=== PATIENT | female | born 1945 | race Caucasian/White ===

== ENCOUNTER 2017-12-27 08:34 | Inpatient (IN) | payer MEDICARE, SELFPAY ==
[2017-12-20 13:41] VITALS: BP 132/57; PULSE 61; RESP 16; TEMP 36.4; O2SAT 96; BMI 32.7
[2017-12-20 14:12] LABS: Hematocrit 40.3 % (37-47); Hemoglobin 13.2 g/dl (12.0-15.0); Mean Corp Hgb Conc 32.8 g/gl (32-36); Mean Corpuscular Hgb 31.2 pg (27.0-32.0); Mean Corpuscular Volume 95.3 fL (81-99); Mean Platelet Vol. 9.4 fl (6.2-12.0); Platelet Count 192 K/mm3 (150-450); RBC Distribution Width SD 48.3 fl (35.1-43.9); Red Blood Count 4.23 M/mm3 (4.2-5.4); Scan Indicated on CBC? Y/N NO; White Blood Count 9.5 K/mm3 (4.4-11.0)
[2017-12-20 14:42] LABS: Hemoglobin A1c 6.3 % (4.2-6.3)
[2017-12-20 14:48] LABS: AST(SGOT) 15 U/L (15-37); Alanine Aminotransfer ALT/SGPT 23 U/L (12-78); Albumin, Serum 3.6 g/dL (3.4-5.0); Alkaline Phosphatase 74 U/L (45-117); Bilirubin, Direct 0.16 mg/dL (0.00-0.30); Globulin 3.7 g/dL (2.2-4.2); Protein, Total 7.3 g/dL (6.4-8.2); Thyroid Stim Hormone (TSH) 0.06 uIU/mL (0.358-3.74)
[2017-12-27] VITALS (26 sets, daily range): BP systolic 91–148; BP diastolic 45–100; PULSE 56–92; RESP 12–27; TEMP 36.4–37.2; O2SAT 56–100; BMI 32.7; BMI 33.8
--- NOTE | 2017-12-27 | IMM_PTH ---
PATIENT: JONATHAN QUINTANILLA LOC: PCU U#:[id number] AGE/SX: 72/F ROOM: [facility] RE12/27/[address]: Dr. Bipin Murray MD : 1945 BED: 1 DIS: 12/29/2017 SPEC #: [id number] RECD: 12/30/17 13:29 STATUS: KARLEY REShey #: [id number] FRANCK: 12/27/17 00:[address]: Bipin Murray DEPT: IMMUNOHISTOCHEMISTRY RECD BY: Geno Caicedo ENTERED: 12/30/17 13:32 SP TYPE: IMMUNO OTHR DR: MD Dr. Raudel Menendez MD Tissues: Urinary bladder, NOS Procedures: CK20 (add) P53 (add) CD44 (add) CK7 (initial) PHYSICIAN & INSTITUTION [place] [address] SPECIMEN INFORMATION: Tissue Source: Bladder tumor Clinical Info: [id number] Specimen Number: [id number] CPT code: 27136, 58740 x3 METHODOLOGY: Deparaffinized sections of prefer/formalin-fixed tissue or PAP/DQ stained slides are incubated with monoclonal/polyclonal antibodies/oligonucleotide probes. Localization is made via biotin free immunoperoxidase method. Appropriate controls are performed and reacted as expected. Results on target cell population are indicated in the following table: RESULTS: ANTIBODY / CLONE RESULT CK7 (OV-TL12/30) positive CK20 (KS20.8) positive P53 (DO-7) positive, dim anti-CD44 (SP37) positive These tests were developed and their performance characteristics determined by [facility]. They may not have been cleared or approved by the U.S. Food and Drug Administration. The FDA has determined that such clearance or approval is not necessary. INTERPRETATION: Bladder tumor: Consistent with urothelial carcinoma, endophytic type. AM:deny 12/31/17 Case has been reviewed in consultation with Dr. Lopes who concurs with the above diagnosis. IDC:[email or web address]
[2017-12-27 06:51] LABS: Bedside Glucose 166 mg/dL (70-110)
[2017-12-27] MEDS: Cefazolin 2 GM in 0.9% Normal Saline 100 ML IV (07:22)
--- NOTE | 2017-12-27 07:26 | PCM.DC.URO ---
Discharge Diet: Light diet - advance as tolerated Discharge Activity: Return to Normal Activity Call your doctor if your incision/area has: Continuous Slow Oozing, Sudden Increased Bleeding, Increased Pain/ Swelling, Increased Redness, Foul Smelling Discharge, Swelling at the incision site Instructions: Treating Bladder Cancer: TUR (Transurethral Resection) Allergies/Adverse Reactions: Allergies No Known Allergies Allergy (Verified 10/30/17 13:11) Medications to take at Discharge Ascorbic Acid [Vitamin C] 1,000 mg PO BID 10/30/17 Biotin 5,000 mcg PO QHS 10/30/17 Chromium Picolinate 1,000 mcg PO BID 10/30/17 Cinnamon Bark [Cinnamon] 1,000 mg PO BID 10/30/17 Copper Gluconate [Copper] 2 mg PO DAILY 10/30/17 Cyanocobalamin (Vitamin B-12) [Vitamin B-12] 500 mcg PO BID 10/30/17 Folic Acid 1 mg PO DAILY@0800 10/30/17 Gabapentin [Neurontin] 300 mg PO TID 10/30/17 Gluc/Elmo-MSM#1/C/Rahul/Alex/Bor [Osteo Bi-Flex Caplet] 2 each PO DAILY 10/30/17 Kelp 600 mcg PO BID 10/30/17 Krill Oil 1,000 mg PO DAILY 10/30/17 Levothyroxine [Synthroid] 175 mcg PO DAILY 10/30/17 Lovastatin [Mevacor] 20 mg PO DAILY 10/30/17 Lutein 20 mg PO DAILY 10/30/17 Metformin HCl [Metformin HCl ER] 500 mg PO BID 10/30/17 Paroxetine HCl [Paxil] 30 mg PO DAILY 10/30/17 Vits [Prenatabs FA ] 2 tablet PO DAILY 10/30/17 Pyridoxine HCl [Vitamin B-6] 100 mg PO BID 10/30/17 Ubidecarenone [Coq10] 200 mg PO DAILY 10/30/17 Docusate Sodium [Colace] 100 mg PO BID PRN PRN #60 cap 11/04/17 Furosemide [Lasix] 20 mg PO DAILY #30 tab 11/06/17 Calcium Carbonate/Vitamin D3 [Calcium 500-Vit D3 600 Tablet] 1,200 mg PO DAILY 12/20/17 Ciprofloxacin [Cipro] 500 mg PO BID #6 tab 12/27/17 Hydrocodone/Acetaminophen [[place] 5-325 Tablet] 1 ea PO Q4H PRN PRN #14 tab 12/27/17 The following prescriptions were given: Hydrocodone/Acetaminophen [[place] 5-325 Tablet] 1 ea PO Q4H PRN PRN #14 tab PRN Reason: Pain Ciprofloxacin [Cipro] 500 mg PO BID #6 tab Primary Care Physician: Raudel Marquez [Primary Care Provider] - Please Follow Up With: Bipin Murray MD When: Appt SaturdayJan 07 at 10:15 am.
--- NOTE | 2017-12-27 07:30 | BLB_PTH ---
PATIENT: JONATHAN QUINTANILLA LOC: PCU U#:[id number] AGE/SX: 72/F ROOM: [facility] RE12/27/[address]: Dr. Bipin Murray MD : 1945 BED: 1 DIS: 12/29/2017 SPEC #: [id number] RECD: 12/27/17 07:30 STATUS: KARLEY MARYSE #: [id number] FRANCK: 12/27/17 07:[address]: Bipin Murray DEPT: SURGICAL PATHOLOGY RECD BY: Michael Merrill ENTERED: 12/27/17 12:59 SP TYPE: TURB OTHR DR: Dr. Raudel Marquez MD Tissues: Urinary bladder, NOS Procedures: Surgery Specimen Level V HEADER OPERATION: Cysto, transurethral resection bladder tumor PRE-OP DIAGNOSIS: Bladder CA TISSUE SUBMITTED: Bladder tumor MICROSCOPIC DIAGNOSIS Urinary bladder tumor, transurethral resection: Urothelial carcinoma. See comment for cancer checklist. 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 none identified Histologic grade ? low grade (WHO) Tumor configuration ? predominantly endophytic with focal papillary Detrusor muscle ? not present Lymph-Vascular invasion - not present Microscopic extent of tumor ? invades subepithelial connective tissue (lamina propria) The above summary is in compliance with [employer] (CAP) Cancer Protocols Checklist and [place] Joint Committee on Cancer (AJCC), Staging Manual, 8th Ed. Immunohistochemistry ([id number]) supports the above diagnosis. Case has been reviewed in consultation with Dr. Lopes who concurs with the above diagnosis. IDC:[email or web address] MICROSCOPIC DESCRIPTION Slides are reviewed. GROSS DESCRIPTION Received in fixative is one container labeled with the patient's name and designated bladder tumor. The specimen consists of three irregular fragments of light dodge soft tissue that in aggregate measure 1 x 0.5 x 0.2 cm. The specimen is totally submitted in one cassette. / AM:deny 12/27/17 TC:0 CPT: 77612
--- NOTE | 2017-12-27 08:27 | OP.PCM_ITS ---
Problem List (1) Bladder cancer Status: Acute Qualifiers: Bladder location: lateral wall Qualified Code(s): C67.2 - Malignant neoplasm of lateral wall of bladder (2) ÁNGEL (stress urinary incontinence, female) Status: Acute Report of Operation Date of Procedure: 12/27/17 Pre-Operative Diagnosis: Bladder tumor/bladder cancer and stress urinary incontinence Post-Operative Diagnosis: Same Surgery/Procedure Performed:: Cystoscopy and transurethral resection of a medium -sized bladder tumor and instillation of mitomycin-C, and second procedure was tension-free vaginal sling Description of Surgical Findings:: 72-year-old female was taken back to the operating room. She underwent a hysterectomy last month at the time of hysterectomy she was placed to have a sling but she was found to have a bladder tumor support at that point the decision was to abort the sling and to address the bladder tumor a separate setting she underwent a hysterectomy she saw him in the office postoperatively and had a bladder tumor and we talked about resecting the bladder tumor and so we proceeded with that surgery she also we also talked about delay the sling and another separate setting. Patient was taken back to the operating room after smooth induction of general anesthesia she was placed in dorsal lithotomy position, looked inside the bladder with a 70 and 30? lens and she had a tumor on her lateral wall, I looked around the entire rest of the bladder did not see any other tumors. I then went in with the resectoscope and resected this medium -sized tumor from the lateral wall is about 2.5 cm in size. After this I inspected and given the fact that the tumor was easily resected I called the and recommended that we could go ahead and proceed with the sling if they desired the gave consent over the phone and the patient was hoping to have the sling done at a later setting anyway so we proceeded with placement of sling today. She underwent a vaginal prep and drape I then put a weighted vaginal speculum into the vaginal canal put a catheter into the bladder I inflated the catheter with 10 cc in the balloon pulled back to the bladder neck I then found the midline urethra made an incision in the mid urethra and created the space for the sling on the left side and the right side of the urethra up to the pubic bone. Once the space was created through a small 1 cm incision below the urethra I then went up to the pubic bone she was placed in Trendelenburg marked out 2 cm in the right side and 2 cm in the left side in the midline of the pubic bone made a small incision the skin I then passed the first trocar top down behind the pubic bone into the small incision into the vaginal incision where is going to pass the first part of the sling we did a cystoscopy and there is no perforation of the bladder I then passed the suture up on the sling on that side. I then passed the trocar top down the right side I again did a cystoscopy and there is no injury to the bladder and then passed the other side of the suture the sling on that side I then put the catheter in and then drained the bladder and then tensioned the sling using a heavy male and pulled the sling up until the sling was resting below the heavy Tillman I then pulled out the heavy [place]man pulled down the edges of the incision the sling appeared exceedingly too loose so I tightened it up on both the left side and the right side just about 2-3 mm and then appear to be laying flat on the urethra but no tension on the urethra. I then pulled the edges of the vaginal mucosa over the sling and then closed the ends incision the midline with interrupted 3 oh chromics. I cut off the excess sling suprapubically and closed the incisions with Dermabond glue. The bladder was then drained completely I then instilled mitomycin 40 cc into the bladder. No catheter was left and the patient anesthetic was reversed is taken back to the PACU in good condition if she is able to void successfully should go ahead home without a catheter if she cannot urinate healthy go home with a catheter. Type of Anesthesia:: General Drains: none Estimated Blood Loss (mL): 20cc - Admit VTE Documentation VTE Present on Admission: No VTE Mechan Device Prophylaxis: SCD's
--- NOTE | 2017-12-27 08:40 | RAD_ITS ---
STUDY: X-RAY CHEST REASON FOR EXAM: Female, 72 years old. Postoperative dyspnea. TECHNIQUE: Single AP portable view of the chest. COMPARISON: Comparison is made with prior study dated November 05, 2017. FINDINGS: EKG electrodes are seen. There now is evidence of airspace disease in both lungs worse in the right upper lobe. This is suggestive of bilateral pulmonary edema. There is no demonstrated pleural abnormality. There is borderline cardiomegaly. Normal mediastinum and dustin. Normal visualized pulmonary arteries. There is atherosclerotic calcification of the aortic arch with tortuosity. There are diffuse degenerative changes of the visualized thoracic spine. Normal visualized ribs, clavicles, and shoulders. There is no demonstrated abnormality of the visualized soft tissue structures of the upper abdomen. RAD/Chest 1 View (Portable) IMPRESSION: Findings suggestive of pulmonary edema. Electronically Signed: Negro Gonzales MD at 9:16 EST Tel [phone], Service support ,
[2017-12-27 09:16] LABS: Anion Gap 10 (5-15); BUN 18 mg/dL (7-18); BUN/Creat Ratio 21.1 RATIO (10-20); Calcium,Total 8.3 mg/dL (8.5-10.1); Chloride 109 mmol/L (98-107); Creatinine, Serum 0.86 mg/dL (0.55-1.02); EST Glomerular Filtration Rate 69 mL/min (>60); Est Glom Filt Rate - Afr Amer 84 mL/min (>60); Estimated Creatinine Clearance 54.54 ml/min; Glucose 212 mg/dL (70-110); Sodium Level 143 mmol/L (136-145)
--- NOTE | 2017-12-27 09:35 | SUR.PHASEI ---
at 0834 pt arrived to PACU bay 3. Awake and drowsy, see initial PACU assessment. POx in the 60s on nasal canula, see Anesthesia Record. Ambu bagging started at 0836. Fine crackles throughout ant chest ausculated. Dr Michaels at bedside and Dr Murray at bedside. 0841 Lasix 40mg IV given. 0848 esmolol given by Orquidea reed, see anesthesia record. 0854 bp 176/87, on bipap, see anesthesia record. 0856 Lopressor 1mg given IV. Chest Xray and labs obtained, and bipap initiated in that period of time from 0838 to 0900. 0900 BP 171/80, 93%POx on 50% bipap. Report phoned to Sandy HOUGH in ICU at 0900. Pt transported to ICU via cot on NRB 10l, POx 87-89% during transport. Family notified by [facility] liason.
[2017-12-27 10:06] LABS: Bedside Glucose 234 mg/dL (70-110)
--- NOTE | 2017-12-27 10:22 | PCM.CON.CC ---
Problem List (1) Postoperative hypoxia Status: Acute (2) Aortic stenosis Status: Chronic Qualifiers: Cardiac valve disease etiology: etiology unspecified Qualified Code(s): I35.0 - Nonrheumatic aortic (valve) stenosis Comment: Last valve area 0.95 cm? (3) Type 2 diabetes mellitus Status: Acute Qualifiers: Diabetes mellitus complication status: with unspecified complications Diabetes mellitus cord splicer insulin use: without cord splicer use Qualified Code(s): E11.8 - Type 2 diabetes mellitus with unspecified complications (4) Hypothyroidism Status: Acute Qualifiers: Hypothyroidism type: unspecified Qualified Code(s): E03.9 - Hypothyroidism, unspecified (5) Hypertension Status: Chronic Qualifiers: Hypertension type: essential hypertension Qualified Code(s): I10 - Essential (primary) hypertension (6) Depression Status: Chronic Qualifiers: Depression Type: unspecified Qualified Code(s): F32.9 - Major depressive disorder, single episode, unspecified (7) Bladder cancer Status: Acute Qualifiers: Bladder location: lateral wall Qualified Code(s): C67.2 - Malignant neoplasm of lateral wall of bladder (8) ÁNGEL (stress urinary incontinence, female) Status: Acute Reason for Consult Date of Consultation: 12/27/17 Reason for Consultation: Acute hypoxic respiratory failure History of Present Illness: The patient is a 72 year old F, with past medical history listed below, who presented to [facility] on 12/27/2017 for elective cystoscopy with transurethral resection of bladder tumor and tension-free vaginal sling. Patient reportedly had had difficulty with previous operations, so general anesthesia was selected. Documentation of fluids for bladder irrigation and IV administration are not available at this time. Patient reportedly tolerated the procedure well, however in PACU became significantly short of breath and hypoxic following extubation. Patient was placed on BiPAP therapy at 100% FiO2, given IV Lasix and transferred to the intensive care unit for further monitoring. Patient denies any history of previous lung pathology. Prior to surgery, patient was noted to be 98% on room air, without tachycardia, hypotension or fever. Patient is denying any pain at this time. Patient denies any prodromal respiratory symptoms such as cough, fever, chills or chest pain prior to the surgery. Patient does not typically use a BiPAP at home. Patient denies any dyspnea, syncope or chest pain on exertion at baseline. Patient is unable to provide a significant amount of additional information, but does report an increased cough following the surgery. Patient did have a Iraheta placed at the request of urology. Patient has not had any hemodynamic instability reported. Past Medical History Past Medical History (Chronic Problems): Chronic Problems Aortic stenosis (Chronic) Last valve area 0.95 cm? Hypertension (Chronic) Depression (Chronic) Allergies No Known Allergies Allergy (Verified 10/30/17 13:11) Home Medications: Ambulatory Orders Medication Instructions Recorded Ascorbic Acid [Vitamin C] 1,000 mg PO BID 10/30/17 Biotin 5,000 mcg PO QHS 10/30/17 Chromium Picolinate 1,000 mcg PO BID 10/30/17 Cinnamon Bark [Cinnamon] 1,000 mg PO BID 10/30/17 Copper Gluconate [Copper] 2 mg PO DAILY 10/30/17 Cyanocobalamin (Vitamin B-12) 500 mcg PO BID 10/30/17 [Vitamin B-12] Folic Acid 1 mg PO DAILY@0800 10/30/17 Gabapentin [Neurontin] 300 mg PO TID 10/30/17 Gluc/[place]-MSM#1/C/Rahul/Alex/Bor 2 each PO DAILY 10/30/17 [Osteo Bi-Flex Caplet] Kelp 600 mcg PO BID 10/30/17 Krill Oil 1,000 mg PO DAILY 10/30/17 Levothyroxine [Synthroid] 175 mcg PO DAILY 10/30/17 Lovastatin [Mevacor] 20 mg PO DAILY 10/30/17 Lutein 20 mg PO DAILY 10/30/17 Metformin HCl [Metformin HCl ER] 500 mg PO BID 10/30/17 Paroxetine HCl [Paxil] 30 mg PO DAILY 10/30/17 Vits [Prenatabs FA ] 2 tablet PO DAILY 10/30/17 Pyridoxine HCl [Vitamin B-6] 100 mg PO BID 10/30/17 Ubidecarenone [Coq10] 200 mg PO DAILY 10/30/17 Docusate Sodium [Colace] 100 mg PO BID PRN PRN #60 cap 11/04/17 Furosemide [Lasix] 20 mg PO DAILY #30 tab 11/06/17 Calcium Carbonate/Vitamin D3 1,200 mg PO DAILY 12/20/17 [Calcium 500-Vit D3 600 Tablet] Ciprofloxacin [Cipro] 500 mg PO BID #6 tab 12/27/17 Hydrocodone/Acetaminophen [[place] 1 ea PO Q4H PRN PRN #14 tab 12/27/17 5-325 Tablet] Surgical History: total knee arthroplasty Psychiatric History: Depression 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 Patient did have an echocardiogram completed here in November 2017 showing an EF of 60% with mild to moderate tricuspid insufficiency and a pulmonary artery pressure of 55 mmHg. Aortic valve area at that time was 0.95 cm?. Mild aortic insufficiency was noted. - Physical Exam General: Alert, Cooperative, - - Mild respiratory distress, but good BiPAP synchrony. Obese. HEENT: Atraumatic, PERRLA, EOMI, Normocephalic, - - No scleral icterus or injection noted Oral: Moist Mucosa, No Gingival or Mucosal Lesions/ Ulcerations, - - Fair dentition Neck: Supple, No Nodes, Trachea Midline, JVD, Right Lungs: No rhonchi, No wheeze, Diminished, Rales - Bilateral, - - Symmetric expansion. No dullness to percussion. Cardiovascular: Regular rate, Regular Rhythm, Normal S1, Normal S2, Murmur - Grade 3 out of 6 systolic ejection murmur at the right sternal border, No rub noted, No Gallop Abdomen: Bowel Sounds Present, Soft, Non Tender, Non-Distended, Obese Extremities: No clubbing, No cyanosis, No edema, Capillary Refill Less than 3 Seconds Skin: No rashes, No breakdown Musculoskeletal: No Tenderness to Palpation of Joints or Extremities Lymphatic: No Cervical, Supraclavicular, or Inguinal Adenopathy Neurological: Cranial nerves II-XII grossly intact, Neuro grossly intact, Motor Exam 5/5 strength throughout Psych/Mental Status: Normal Affect, Appropriate Vital Signs Temp Pulse Resp BP Pulse Ox 36.4 C L 81 27 H 141/60 H 92 12/27/17 09:45 12/27/17 10:00 12/27/17 09:45 12/27/17 09:45 12/27/17 09:45 Oxygen Flow Rate 10 Oxygen Delivery Method Bi-pap Weight: 95.1 kg Body Mass Index (BMI) 33.8 Laboratory Tests Past 24 Hrs 12/27/17 08:50 Sodium 143 Potassium 4.0 Chloride 109 H Carbon Dioxide 24.0 Anion Gap 10 BUN 18 Creatinine 0.86 Estim Creat Clear Calc 54.54 Est GFR (MDRD) Af Amer 84 Est GFR (MDRD) Non-Af 69 BUN/Creatinine Ratio 21.1 H Glucose 212 H Calcium 8.3 L Troponin I < 0.02 POC Glucose 12/27/17 12/27/17 09:24 06:30 POC Glucose 234 H 166 H Clinical Impression(s) from Imaging Studies Chest X-Ray 12/27/17 08:40 IMPRESSION: Findings suggestive of pulmonary edema. Electronically Signed: Negro Gonzales MD at 9:16 EST Tel [phone], Service support , Assessment/Plan Active and Suspected Problems Bladder cancer (Acute) ÁNGEL (stress urinary incontinence, female) (Acute) RECOMMENDATIONS: 1. Continue BiPAP therapy for now 2. Lasix as needed for oxygenation 3. BiPAP breaks later today 4. Every 6 blood sugar checks with sliding scale insulin 5. KVO IV fluids 6. Cycle troponins 7. Patient can eat if off of BiPAP for an hour IMPRESSIONS: 1. Acute hypoxic respiratory failure secondary to probable flash pulmonary edema Patient with flash pulmonary edema noted on chest x-ray and severe hypoxemia. Patient does have underlining aortic stenosis. Amount of fluid use during surgery is not clear at this time, but clinical suspicion is patient has developed pulmonary edema. Patient has received Lasix. BiPAP rescue for now, but anticipate rapid recovery. BiPAP breaks as tolerated later today. If able to tolerate off of BiPAP for an hour, patient can be initiated on a diet from my perspective. Blood sugars will need to be checked and these can be changed to q. before meals and at bedtime once diet is initiated. Would not recommend bronchodilators at this time. No beta blockade is indicated in this patient is not significantly tachycardic. KVO IV fluids given patient's active diuresis. 2. Acute on chronic diastolic congestive heart failure secondary to aortic stenosis Patient with aortic stenosis as an outpatient as confirmed by echocardiogram in November and December. EF is preserved. EKG does not show any significant ST elevations. Will obtain cardiac enzymes. Hold on any anticoagulation or cardiology consult for now. 3. Diabetes mellitus type 2 Patient with elevated blood sugars at this time. Patient is on metformin at home. Given her n.p.o. status, will cover with sliding scale insulin for now. 4. Bladder cancer/depression/hypertension/hypothyroidism/advanced age Complicates care, management, recovery and prognosis. Okay to resume home medications from my perspective, except for Lasix. This will be given IV. TIME: 32 minutes critical care time spent addressing patient's acute hypoxic respiratory failure, congestive heart failure, diabetes mellitus, review of all data in collaboration with care team (9:30 AM to 10:30 AM) Code Visit 9xxxx: [id number] Critical care first hour
--- NOTE | 2017-12-27 10:42 | CON.PCM_ITS ---
Problem List (1) Postoperative hypoxia Status: Acute (2) Aortic stenosis Status: Chronic Qualifiers: Cardiac valve disease etiology: etiology unspecified Qualified Code(s): I35.0 - Nonrheumatic aortic (valve) stenosis Comment: Last valve area 0.95 cm? (3) Type 2 diabetes mellitus Status: Acute Qualifiers: Diabetes mellitus complication status: with unspecified complications Diabetes mellitus watermelon inspector insulin use: without nursing home use Qualified Code( s): E11.8 - Type 2 diabetes mellitus with unspecified complications (4) Hypothyroidism Status: Acute Qualifiers: Hypothyroidism type: unspecified Qualified Code(s): E03.9 - Hypothyroidism , unspecified (5) Hypertension Status: Chronic Qualifiers: Hypertension type: essential hypertension Qualified Code(s): I10 - Essential (primary) hypertension (6) Depression Status: Chronic Qualifiers: Depression Type: unspecified Qualified Code(s): F32.9 - Major depressive disorder, single episode, unspecified (7) Bladder cancer Status: Acute Qualifiers: Bladder location: lateral wall Qualified Code(s): C67.2 - Malignant neoplasm of lateral wall of bladder (8) ÁNGEL (stress urinary incontinence, female) Status: Acute Reason for Consult Date of Consultation: 12/27/17 Reason for Consultation: Acute hypoxic respiratory failure History of Present Illness: The patient is a 72 year old F, with past medical history listed below, who presented to [facility] on 12/27/2017 for elective cystoscopy with transurethral resection of bladder tumor and tension-free vaginal sling. Patient reportedly had had difficulty with previous operations, so general anesthesia was selected. Documentation of fluids for bladder irrigation and IV administration are not available at this time. Patient reportedly tolerated the procedure well, however in PACU became significantly short of breath and hypoxic following extubation. Patient was placed on BiPAP therapy at 100% FiO2 , given IV Lasix and transferred to the intensive care unit for further monitoring. Patient denies any history of previous lung pathology. Prior to surgery, patient was noted to be 98% on room air, without tachycardia, hypotension or fever. Patient is denying any pain at this time. Patient denies any prodromal respiratory symptoms such as cough, fever, chills or chest pain prior to the surgery. Patient does not typically use a BiPAP at home. Patient denies any dyspnea, syncope or chest pain on exertion at baseline. Patient is unable to provide a significant amount of additional information, but does report an increased cough following the surgery. Patient did have a Iraheta placed at the request of urology. Patient has not had any hemodynamic instability reported. Past Medical History Past Medical History (Chronic Problems): Chronic Problems Aortic stenosis (Chronic) Last valve area 0.95 cm? Hypertension (Chronic) Depression (Chronic) Allergies No Known Allergies Allergy (Verified 10/30/17 13:11) Home Medications: Ambulatory Orders Medication Instructions Recorded Ascorbic Acid [Vitamin C] 1,000 mg PO BID 10/30/17 Biotin 5,000 mcg PO QHS 10/30/17 Chromium Picolinate 1,000 mcg PO BID 10/30/17 Cinnamon Bark [Cinnamon] 1,000 mg PO BID 10/30/17 Copper Gluconate [Copper] 2 mg PO DAILY 10/30/17 Cyanocobalamin (Vitamin B-12) 500 mcg PO BID 10/30/17 [Vitamin B-12] Folic Acid 1 mg PO DAILY@0800 10/30/17 Gabapentin [Neurontin] 300 mg PO TID 10/30/17 Gluc/Elmo-MSM#1/C/Rahul/Alex/Bor 2 each PO DAILY 10/30/17 [Osteo Bi-Flex Caplet] Kelp 600 mcg PO BID 10/30/17 Krill Oil 1,000 mg PO DAILY 10/30/17 Levothyroxine [Synthroid] 175 mcg PO DAILY 10/30/17 Lovastatin [Mevacor] 20 mg PO DAILY 10/30/17 Lutein 20 mg PO DAILY 10/30/17 Metformin HCl [Metformin HCl ER] 500 mg PO BID 10/30/17 Paroxetine HCl [Paxil] 30 mg PO DAILY 10/30/17 Vits [Prenatabs FA ] 2 tablet PO DAILY 10/30/17 Pyridoxine HCl [Vitamin B-6] 100 mg PO BID 10/30/17 Ubidecarenone [Coq10] 200 mg PO DAILY 10/30/17 Docusate Sodium [Colace] 100 mg PO BID PRN PRN #60 cap 11/04/17 Furosemide [Lasix] 20 mg PO DAILY #30 tab 11/06/17 Calcium Carbonate/Vitamin D3 1,200 mg PO DAILY 12/20/17 [Calcium 500-Vit D3 600 Tablet] Ciprofloxacin [Cipro] 500 mg PO BID #6 tab 12/27/17 Hydrocodone/Acetaminophen [[place] 1 ea PO Q4H PRN PRN #14 tab 12/27/17 5-325 Tablet] Surgical History: total knee arthroplasty Psychiatric History: Depression [employer] History: No pertinent [employer] history Smoking Status: Former smoker - *Family History Maternal History Items: No pertinent history Review of Systems Unable to obtain accurate/complete ROS d/t: Difficult to obtain secondary to acute condition, see HPI Patient Problems: Active and Suspected Problems Bladder cancer (Acute) ÁNGEL (stress urinary incontinence, female) (Acute) Objective: Chest x-ray was personally reviewed and shows bilateral infiltrates consistent with congestive heart failure. Patient did have an echocardiogram completed here in November 2017 showing an EF of 60% with mild to moderate tricuspid insufficiency and a pulmonary artery pressure of 55 mmHg. Aortic valve area at that time was 0.95 cm?. Mild aortic insufficiency was noted. - Physical Exam General: Alert, Cooperative, - - Mild respiratory distress, but good BiPAP synchrony. Obese. HEENT: Atraumatic, PERRLA, EOMI, Normocephalic, - - No scleral icterus or injection noted Oral: Moist Mucosa, No Gingival or Mucosal Lesions/ Ulcerations, - - Fair dentition Neck: Supple, No Nodes, Trachea Midline, JVD, Right Lungs: No rhonchi, No wheeze, Diminished, Rales - Bilateral, - - Symmetric expansion. No dullness to percussion. Cardiovascular: Regular rate, Regular Rhythm, Normal S1, Normal S2, Murmur - Grade 3 out of 6 systolic ejection murmur at the right sternal border, No rub noted, No Gallop Abdomen: Bowel Sounds Present, Soft, Non Tender, Non-Distended, Obese Extremities: No clubbing, No cyanosis, No edema, Capillary Refill Less than 3 Seconds Skin: No rashes, No breakdown Musculoskeletal: No Tenderness to Palpation of Joints or Extremities Lymphatic: No Cervical, Supraclavicular, or Inguinal Adenopathy Neurological: Cranial nerves II-XII grossly intact, Neuro grossly intact, Motor Exam 5/5 strength throughout Psych/Mental Status: Normal Affect, Appropriate Vital Signs Temp Pulse Resp BP Pulse Ox 36.4 C L 81 27 H 141/60 H 92 12/27/17 09:45 12/27/17 10:00 12/27/17 09:45 12/27/17 09:45 12/27/17 09:45 Oxygen Flow Rate 10 Oxygen Delivery Method Bi-pap Weight: 95.1 kg Body Mass Index (BMI) 33.8 Laboratory Tests Past 24 Hrs 12/27/17 08:50 Sodium 143 Potassium 4.0 Chloride 109 H Carbon Dioxide 24.0 Anion Gap 10 BUN 18 Creatinine 0.86 Estim Creat Clear Calc 54.54 Est GFR (MDRD) Af Amer 84 Est GFR (MDRD) Non-Af 69 BUN/Creatinine Ratio 21.1 H Glucose 212 H Calcium 8.3 L Troponin I < 0.02 POC Glucose 12/27/17 12/27/17 09:24 06:30 POC Glucose 234 H 166 H Clinical Impression(s) from Imaging Studies Chest X-Ray 12/27/17 08:40 IMPRESSION: Findings suggestive of pulmonary edema. Electronically Signed: Negro Gonzales MD at 9:16 EST Tel [phone], Service support , Assessment/Plan Active and Suspected Problems Bladder cancer (Acute) ÁNGEL (stress urinary incontinence, female) (Acute) RECOMMENDATIONS: 1. Continue BiPAP therapy for now 2. Lasix as needed for oxygenation 3. BiPAP breaks later today 4. Every 6 blood sugar checks with sliding scale insulin 5. KVO IV fluids 6. Cycle troponins 7. Patient can eat if off of BiPAP for an hour IMPRESSIONS: 1. Acute hypoxic respiratory failure secondary to probable flash pulmonary edema Patient with flash pulmonary edema noted on chest x-ray and severe hypoxemia. Patient does have underlining aortic stenosis. Amount of fluid use during surgery is not clear at this time, but clinical suspicion is patient has developed pulmonary edema. Patient has received Lasix. BiPAP rescue for now, but anticipate rapid recovery. BiPAP breaks as tolerated later today. If able to tolerate off of BiPAP for an hour, patient can be initiated on a diet from my perspective. Blood sugars will need to be checked and these can be changed to q. before meals and at bedtime once diet is initiated. Would not recommend bronchodilators at this time. No beta blockade is indicated in this patient is not significantly tachycardic. KVO IV fluids given patient's active diuresis. 2. Acute on chronic diastolic congestive heart failure secondary to aortic stenosis Patient with aortic stenosis as an outpatient as confirmed by echocardiogram in November and December. EF is preserved. EKG does not show any significant ST elevations. Will obtain cardiac enzymes. Hold on any anticoagulation or cardiology consult for now. 3. Diabetes mellitus type 2 Patient with elevated blood sugars at this time. Patient is on metformin at home. Given her n.p.o. status, will cover with sliding scale insulin for now. 4. Bladder cancer/depression/hypertension/hypothyroidism/advanced age Complicates care, management, recovery and prognosis. Okay to resume home medications from my perspective, except for Lasix. This will be given IV. TIME: 32 minutes critical care time spent addressing patient's acute hypoxic respiratory failure, congestive heart failure, diabetes mellitus, review of all data in collaboration with care team (9:30 AM to 10:30 AM) Code Visit 9xxxx: [id number] Critical care first hour
[2017-12-27 12:35] LABS: Bedside Glucose 186 mg/dL (70-110)
[2017-12-27 13:46] LABS: Magnesium 1.5 mg/dL (1.6-2.6); Potassium 3.4 mmol/L (3.5-5.1)
[2017-12-27] MEDS: 0.9% NaCl Peripheral Flush Adult/Peds IV ×2 (14:25→16:43)
[2017-12-27] MEDS: 0.9% NaCl IVPB Med Flush (250 mL) 15 ML IV (14:25)
[2017-12-27 16:29] LABS: M R Staph aureus DNA By PCR Negative (Negative); Probe Check PASS; Specimen Processing Control PASS
[2017-12-27 16:41] LABS: Bedside Glucose 173 mg/dL (70-110)
[2017-12-27] MEDS: Furosemide 20 MG/2 ML VIAL IV (16:43)
[2017-12-27 23:11] LABS: Bedside Glucose 132 mg/dL (70-110)
[2017-12-28] VITALS (22 sets, daily range): BP systolic 87–132; BP diastolic 42–71; PULSE 57–84; RESP 15–22; TEMP 36.9–37.4; O2SAT 85–98
[2017-12-28] MEDS: Acetaminophen 325 MG Tablet 650 MG PO ×4 (03:57→22:27)
[2017-12-28] MEDS: 0.9% NaCl Peripheral Flush Adult/Peds IV ×2 (03:58→05:50)
[2017-12-28 04:21] LABS: Absolute Lymphocyte Count 3.32 X10^3/ul (0.83-4.51); Absolute Neutrophil Count 9.2 X10^3/uL (2.0-7.7); Basophil# 0.01 X10^3/uL; Basophil% 0.1 % (0-1); Eosinophil# 0.19 X10^3/uL; Eosinophils% 1.4 % (0-5); Hematocrit 39.5 % (37-47); Lymphocyte # 3.32 X10^3/ul (4.0); Lymphocyte % 24.3 % (19-41); Mean Corp Hgb Conc 32.9 g/gl (32-36); Mean Corpuscular Hgb 31.6 pg (27.0-32.0); Mean Corpuscular Volume 95.9 fL (81-99); Mean Platelet Vol. 9.6 fl (6.2-12.0); Monocyte# 0.89 X10^3/uL; Monocyte% 6.5 % (0-10); Neutrophil # 9.22 X10^3/uL (2.7-7.7); Neutrophil % 67.6 % (47-70); Platelet Count 181 K/mm3 (150-450); RBC Distribution Width CV 13.8 % (11.6-14.6); RBC Distribution Width SD 47.9 fl (35.1-43.9); Red Blood Count 4.12 M/mm3 (4.2-5.4); White Blood Count 13.6 K/mm3 (4.4-11.0)
[2017-12-28 04:30] LABS: Anion Gap 9 (5-15); BUN 17 mg/dL (7-18); BUN/Creat Ratio 23.5 RATIO (10-20); Calcium,Total 8.1 mg/dL (8.5-10.1); Chloride 103 mmol/L (98-107); Creatinine, Serum 0.72 mg/dL (0.55-1.02); EST Glomerular Filtration Rate 84 mL/min (>60); Est Glom Filt Rate - Afr Amer 102 mL/min (>60); Glucose 126 mg/dL (70-110); Phosphorus 3.6 mg/dL (2.5-4.9); Potassium 3.5 mmol/L (3.5-5.1); Sodium Level 141 mmol/L (136-145)
[2017-12-28 04:32] LABS: POSITIVE COUNT NO; POSITIVE DIFFERENTIAL NO; POSITIVE MORPHOLOGY NO
[2017-12-28] MEDS: Furosemide 20 MG/2 ML VIAL IV (05:50)
--- NOTE | 2017-12-28 06:02 | PN_ITS ---
Subjective: Patient did well overnight. No acute issues were reported. Patient does report the development of a headache at approximately 2 AM. Patient states this is a throbbing headache and is typical of previous headaches. Patient has taken Tylenol with some improvement. Patient did receive significant Lasix yesterday and oxygen saturations have improved. Patient was tried on room air this morning and saturations were 88-89%. Patient does report that there are plans for an aortic valve replacement in the future after I get all this done. General: Alert, Oriented x3, Cooperative, No apparent distress, - - Speaking in full sentences. Appears stated age. HEENT: Atraumatic, PERRLA, EOMI, Normocephalic, - - No scleral icterus or injection noted. Oral: Moist Mucosa, No Gingival or Mucosal Lesions/ Ulcerations Neck: Supple, No JVD, No Nodes, Trachea Midline Lungs: Clear to auscultation, Normal air movement, No rhonchi, No wheeze, Rales - Only posterior, - - Symmetric expansion. No dullness to percussion Cardiovascular: Regular rate, Regular Rhythm, Normal S1, Normal S2, Murmur - Unchanged from previous, No rub noted, No Gallop Abdomen: Bowel Sounds Present, Soft, Non Tender, Non-Distended, Obese Extremities: No clubbing, No cyanosis, No edema, Capillary Refill Less than 3 Seconds Skin: No rashes, No breakdown Musculoskeletal: No Tenderness to Palpation of Joints or Extremities Lymphatic: No Cervical, Supraclavicular, or Inguinal Adenopathy Neurological: Cranial nerves II-XII grossly intact, Neuro grossly intact, Motor Exam 5/5 strength throughout, Sensory exam intact to light touch and pain Psych/Mental Status: Alert and oriented to time, place, person, mood and affect Vital Signs Temp Pulse Resp BP Pulse Ox 37.3 C 74 17 110/52 L 89 12/28/17 04:00 12/28/17 05:00 12/28/17 05:00 12/28/17 05:00 12/28/17 05:00 Oxygen Flow Rate 1 Oxygen Delivery Method Room Air Weight: 92.2 kg Body Mass Index (BMI) 33.8 Intake and Output for Last 24 Hours 12/26/17 12/27/17 12/28/17 23:59 23:59 23:59 Intake Total 846 / 846 Output Total 3550 / 3550 Balance -2704 / -2704 Labs (Last 48 Hours) 12/27/17 12/27/17 12/27/17 06:30 08:50 09:24 WBC RBC Hgb Hct MCV MCH MCHC RDW RDW Differential Plt Count MPV Immature Gran % (Auto) Neut % (Auto) Lymph % (Auto) [place] % (Auto) Eos % (Auto) Baso % (Auto) Absolute Neuts (auto) Absolute Lymphs (auto) Total Counted Sodium 143 Potassium 4.0 Chloride 109 H Carbon Dioxide 24.0 Anion Gap 10 BUN 18 Creatinine 0.86 Estim Creat Clear Calc 54.54 Est GFR (MDRD) Af Amer 84 Est GFR (MDRD) Non-Af 69 BUN/Creatinine Ratio 21.1 H Glucose 212 H Calcium 8.3 L Phosphorus Magnesium Troponin I < 0.02 MRSA (PCR) POC Glucose 166 H 234 H 12/27/17 12/27/17 12/27/17 12:24 12:55 12:55 WBC RBC Hgb Hct MCV MCH MCHC RDW RDW Differential Plt Count MPV Immature Gran % (Auto) Neut % (Auto) Lymph % (Auto) [place] % (Auto) Eos % (Auto) Baso % (Auto) Absolute Neuts (auto) Absolute Lymphs (auto) Total Counted Sodium Potassium 3.4 L Chloride Carbon Dioxide Anion Gap BUN Creatinine Estim Creat Clear Calc Est GFR (MDRD) Af Amer Est GFR (MDRD) Non-Af BUN/Creatinine Ratio Glucose Calcium Phosphorus Magnesium 1.5 L Troponin I 0.03 MRSA (PCR) POC Glucose 186 H 12/27/17 12/27/17 12/27/17 14:25 16:33 16:55 WBC RBC Hgb Hct MCV MCH MCHC RDW RDW Differential Plt Count MPV Immature Gran % (Auto) Neut % (Auto) Lymph % (Auto) [place] % (Auto) Eos % (Auto) Baso % (Auto) Absolute Neuts (auto) Absolute Lymphs (auto) Total Counted Sodium Potassium Chloride Carbon Dioxide Anion Gap BUN Creatinine Estim Creat Clear Calc Est GFR (MDRD) Af Amer Est GFR (MDRD) Non-Af BUN/Creatinine Ratio Glucose Calcium Phosphorus Magnesium Troponin I 0.03 MRSA (PCR) Negative POC Glucose 173 H 12/27/17 12/27/17 12/28/17 22:58 23:00 04:00 WBC 13.6 H RBC 4.12 L Hgb 13.0 Hct 39.5 MCV 95.9 MCH 31.6 MCHC 32.9 RDW 13.8 RDW Differential 47.9 H Plt Count 181 MPV 9.6 Immature Gran % (Auto) 0.100 Neut % (Auto) 67.6 Lymph % (Auto) 24.3 [place] % (Auto) 6.5 Eos % (Auto) 1.4 Baso % (Auto) 0.1 Absolute Neuts (auto) 9.2 H Absolute Lymphs (auto) 3.32 Total Counted Not Reportable Sodium Potassium Chloride Carbon Dioxide Anion Gap BUN Creatinine Estim Creat Clear Calc Est GFR (MDRD) Af Amer Est GFR (MDRD) Non-Af BUN/Creatinine Ratio Glucose Calcium Phosphorus Magnesium Troponin I 0.02 MRSA (PCR) POC Glucose 132 H 12/28/17 04:00 WBC RBC Hgb Hct MCV MCH MCHC RDW RDW Differential Plt Count MPV Immature Gran % (Auto) Neut % (Auto) Lymph % (Auto) [place] % (Auto) Eos % (Auto) Baso % (Auto) Absolute Neuts (auto) Absolute Lymphs (auto) Total Counted Sodium 141 Potassium 3.5 Chloride 103 Carbon Dioxide 29.0 Anion Gap 9 BUN 17 Creatinine 0.72 Estim Creat Clear Calc 46.90 Est GFR (MDRD) Af Amer 102 Est GFR (MDRD) Non-Af 84 BUN/Creatinine Ratio 23.5 H Glucose 126 H Calcium 8.1 L Phosphorus 3.6 Magnesium 2.0 Troponin I MRSA (PCR) POC Glucose Clinical Impression(s) from Imaging Studies Chest X-Ray 12/27/17 08:40 IMPRESSION: Findings suggestive of pulmonary edema. Electronically Signed: Negro Gonzales MD at 9:16 EST Tel [phone], Service support , Assessment/Plan Active and Suspected Problems Bladder cancer (Acute) ÁNGEL (stress urinary incontinence, female) (Acute) RECOMMENDATIONS: 1. Additional dose of Lasix this morning 2. P.o. administration of potassium 3. Walking oximetry later today 4. Every 6 blood sugar checks with sliding scale insulin 5. Okay to transfer from the intensive care unit 6. Okay to discharge from my perspective if patient able to ambulate on room air with saturations greater than 89% IMPRESSIONS: 1. Acute hypoxic respiratory failure secondary to probable flash pulmonary edema Patient has responded very nicely to diuretic therapy. Patient -2.7 L since yesterday and has improved oxygenation from BiPAP to 2 L this morning. Room air challenge resulted in marginal oxygenation. Renal function is tolerating diuresis well. Will give additional Lasix dose this morning. Potassium is marginal, so this will be supplemented also. If patient is able to tolerate ambulation on room air, okay to be discharged from my perspective. If patient is not able to tolerate room air ambulation, transfer to a general medical floor with continued diuresis would be appropriate. 2. Acute on chronic diastolic congestive heart failure secondary to aortic stenosis Patient with aortic stenosis as an outpatient as confirmed by echocardiogram in November and December. EF is preserved. EKG does not show any significant ST elevations. Cardiac enzymes were negative. Hold on any anticoagulation or cardiology consult for now. 3. Diabetes mellitus type 2 Patient likely okay to resume baseline metformin if okay with primary service. Would continue sliding scale insulin with meals. 4. Bladder cancer/depression/hypertension/hypothyroidism/advanced age Complicates care, management, recovery and prognosis. Okay to resume home medications from my perspective, except for Lasix. This will be given IV. On discharge, patient can resume baseline Lasix therapy. Code Visit Inpatient E&M: [id number] [facility] Hosp L3
[2017-12-28 06:25] LABS: Bedside Glucose 157 mg/dL (70-110)
--- NOTE | 2017-12-28 08:49 | PN_ITS ---
Patient Problems: Active and Suspected Problems Bladder cancer (Acute) ÁNGEL (stress urinary incontinence, female) (Acute) Subjective: Postoperative day #1 status post resection of a small bladder tumor and placement of a sling for incontinence postoperatively she developed what appeared to be flash pulmonary edema and congestion or CHF she has been diuresed has a Iraheta catheter in place and is doing well she is under the care of the photoresist printer in the ICU. - Physical Exam General: Alert, Oriented x3, Cooperative HEENT: Atraumatic, PERRLA, EOMI, Normocephalic Neck: Supple, No JVD, Negative Carotid Bruits Lungs: Clear to auscultation, Normal air movement Cardiovascular: Regular rate, No murmurs Abdomen: Bowel Sounds Present, Soft, Non Tender Extremities: No edema, Capillary Refill Less than 3 Seconds Skin: No rashes, No breakdown Musculoskeletal: No Tenderness to Palpation of Joints or Extremities Neurological: Cranial nerves II-XII grossly intact Psych/Mental Status: Normal Affect, Appropriate Vital Signs Temp Pulse Resp BP Pulse Ox 99.4 F H 84 18 120/53 L 94 12/28/17 08:00 12/28/17 08:00 12/28/17 08:00 12/28/17 08:00 12/28/17 08:00 Oxygen Flow Rate 1 Oxygen Delivery Method Nasal Cannula Weight: 92.2 kg Body Mass Index (BMI) 33.8 Intake and Output for Last 24 Hours 12/26/17 12/27/17 12/28/17 23:59 23:59 23:59 Intake Total 846 / 846 240 / 240 Output Total 3550 / 3550 1125 / 1125 Balance -2704 / -2704 -885 / -885 Laboratory Tests Past 24 Hrs 12/27/17 12/27/17 12/27/17 08:50 12:55 12:55 WBC RBC Hgb Hct MCV MCH MCHC RDW RDW Differential Plt Count MPV Immature Gran % (Auto) Neut % (Auto) Lymph % (Auto) [place] % (Auto) Eos % (Auto) Baso % (Auto) Absolute Neuts (auto) Absolute Lymphs (auto) Total Counted Sodium 143 Potassium 4.0 3.4 L Chloride 109 H Carbon Dioxide 24.0 Anion Gap 10 BUN 18 Creatinine 0.86 Estim Creat Clear Calc 54.54 Est GFR (MDRD) Af Amer 84 Est GFR (MDRD) Non-Af 69 BUN/Creatinine Ratio 21.1 H Glucose 212 H Calcium 8.3 L Phosphorus Magnesium 1.5 L Troponin I < 0.02 0.03 MRSA (PCR) 12/27/17 12/27/17 12/27/17 14:25 16:55 23:00 WBC RBC Hgb Hct MCV MCH MCHC RDW RDW Differential Plt Count MPV Immature Gran % (Auto) Neut % (Auto) Lymph % (Auto) [place] % (Auto) Eos % (Auto) Baso % (Auto) Absolute Neuts (auto) Absolute Lymphs (auto) Total Counted Sodium Potassium Chloride Carbon Dioxide Anion Gap BUN Creatinine Estim Creat Clear Calc Est GFR (MDRD) Af Amer Est GFR (MDRD) Non-Af BUN/Creatinine Ratio Glucose Calcium Phosphorus Magnesium Troponin I 0.03 0.02 MRSA (PCR) Negative 12/28/17 12/28/17 04:00 04:00 WBC 13.6 H RBC 4.12 L Hgb 13.0 Hct 39.5 MCV 95.9 MCH 31.6 MCHC 32.9 RDW 13.8 RDW Differential 47.9 H Plt Count 181 MPV 9.6 Immature Gran % (Auto) 0.100 Neut % (Auto) 67.6 Lymph % (Auto) 24.3 [place] % (Auto) 6.5 Eos % (Auto) 1.4 Baso % (Auto) 0.1 Absolute Neuts (auto) 9.2 H Absolute Lymphs (auto) 3.32 Total Counted Not Reportable Sodium 141 Potassium 3.5 Chloride 103 Carbon Dioxide 29.0 Anion Gap 9 BUN 17 Creatinine 0.72 Estim Creat Clear Calc 46.90 Est GFR (MDRD) Af Amer 102 Est GFR (MDRD) Non-Af 84 BUN/Creatinine Ratio 23.5 H Glucose 126 H Calcium 8.1 L Phosphorus 3.6 Magnesium 2.0 Troponin I MRSA (PCR) POC Glucose 12/28/17 12/27/17 12/27/17 06:13 22:58 16:33 POC Glucose 157 H 132 H 173 H 12/27/17 12/27/17 12:24 09:24 POC Glucose 186 H 234 H Assessment/Plan Active and Suspected Problems Bladder cancer (Acute) ÁNGEL (stress urinary incontinence, female) (Acute) 72-year-old female status post bladder tumor resection and placement of the sling onset of pulmonary edema postop looks like she is resolved her issue she is a 91% on room air I think she can go to the floor and probably will be able to be discharged by tomorrow today I had the catheter removed the nurses will remove the catheter for voiding trial.
[2017-12-28] MEDS: CHLORHEXIDINE GLUC 2% CLOTH 1 EACH TOWELETTE TOPICAL (10:26)
[2017-12-28 16:11] LABS: Bedside Glucose 168 mg/dL (70-110)
[2017-12-28 16:30] LABS: Bedside Glucose 162 mg/dL (70-110)
[2017-12-28 22:36] LABS: Bedside Glucose 148 mg/dL (70-110)
[2017-12-29] VITALS (9 sets, daily range): BP systolic 112–128; BP diastolic 46–51; PULSE 59–70; RESP 16–18; TEMP 36.6–37.1; O2SAT 89–97
[2017-12-29 06:26] LABS: Anion Gap 9 (5-15); BUN 20 mg/dL (7-18); BUN/Creat Ratio 28.9 RATIO (10-20); Calcium,Total 8.6 mg/dL (8.5-10.1); Chloride 104 mmol/L (98-107); Creatinine, Serum 0.69 mg/dL (0.55-1.02); EST Glomerular Filtration Rate 88 mL/min (>60); Est Glom Filt Rate - Afr Amer 107 mL/min (>60); Glucose 140 mg/dL (70-110); Sodium Level 140 mmol/L (136-145)
[2017-12-29 06:56] LABS: Bedside Glucose 150 mg/dL (70-110)
--- NOTE | 2017-12-29 07:45 | NURSING ---
AMBULATE PATIENT, IF OKAY ON RA OKAY TO GO HOME. PER DR ARREDONDO
--- NOTE | 2017-12-29 08:24 | PCM.PROGNOTE ---
Patient Problems: Active and Suspected Problems Bladder cancer (Acute) ÁNGEL (stress urinary incontinence, female) (Acute) Subjective: Patient did well overnight. No acute issues were reported. Patient reports subjective improvement in overall condition. Patient has had a periodic nonproductive cough, especially with ambulation. No fevers or chills have been noted. Patient does report polyuria. - Physical Exam General: Alert, Oriented x3, Cooperative, No apparent distress, Well developed, Well nourished, - - Speaking in full sentences. HEENT: Atraumatic, PERRLA, EOMI, Normocephalic, - - No scleral icterus or injection noted. Oral: Moist Mucosa, No Gingival or Mucosal Lesions/ Ulcerations Neck: Supple, No JVD, No Nodes, Trachea Midline Lungs: Clear to auscultation, Normal air movement, No rhonchi, No wheeze, No rales, - - Symmetric expansion. No dullness to percussion. Cardiovascular: Regular rate, Regular Rhythm, Normal S1, Normal S2, Murmur - Unchanged from previous, No rub noted, No Gallop Abdomen: Bowel Sounds Present, Soft, Non Tender, Non-Distended, Obese Extremities: No clubbing, No cyanosis, No edema, Capillary Refill Less than 3 Seconds Skin: No rashes, No breakdown Musculoskeletal: No Tenderness to Palpation of Joints or Extremities, No Muscle Wasting Lymphatic: No Cervical, Supraclavicular, or Inguinal Adenopathy Neurological: Cranial nerves II-XII grossly intact, Neuro grossly intact, Motor Exam 5/5 strength throughout Psych/Mental Status: Alert and oriented to time, place, person, mood and affect Vital Signs Temp Pulse Resp BP Pulse Ox 36.6 C 62 16 128/51 H 97 12/29/17 02:21 12/29/17 07:46 12/29/17 02:21 12/29/17 02:21 12/29/17 02:21 Oxygen Flow Rate 1 Oxygen Delivery Method Nasal Cannula Weight: 91.6 kg Body Mass Index (BMI) 33.8 Intake and Output for Last 24 Hours 12/27/17 12/28/17 12/29/17 23:59 23:59 23:59 Intake Total 846 / 846 725 / 725 Output Total 3550 / 3550 1450 / 1450 Balance -2704 / -2704 -725 / -725 Laboratory Tests Past 24 Hrs 12/29/17 05:36 Sodium 140 Potassium 4.0 Chloride 104 Carbon Dioxide 27.0 Anion Gap 9 BUN 20 H Creatinine 0.69 Estim Creat Clear Calc 46.90 Est GFR (MDRD) Af Amer 107 Est GFR (MDRD) Non-Af 88 BUN/Creatinine Ratio 28.9 H Glucose 140 H Calcium 8.6 POC Glucose 12/29/17 12/28/17 12/28/17 06:46 22:23 16:14 POC Glucose 150 H 148 H 162 H 12/28/17 12:41 POC Glucose 168 H Assessment/Plan Active and Suspected Problems Bladder cancer (Acute) ÁNGEL (stress urinary incontinence, female) (Acute) RECOMMENDATIONS: 1. Walking oximetry 2. Discharge later today if saturations stayed greater than 89% 3. No pulmonary follow-up as an outpatient as indicated IMPRESSIONS: 1. Acute hypoxic respiratory failure secondary to probable flash pulmonary edema Patient did receive additional diuretic therapy yesterday. Labs this morning show adequate potassium and renal function. Oxygen saturations at baseline have improved. Will obtain a walking oximetry. If patient remains hypoxic, patient could stay for more diuresis. Patient could also be discharged on supplemental oxygen. Clinical suspicion is patient will be finding can be discharged without supplemental oxygen. No outpatient follow-up from a pulmonary perspective would be needed unless patient persisted in having hypoxemia following valve replacement. 2. Acute on chronic diastolic congestive heart failure secondary to aortic stenosis patient with aortic stenosis as an outpatient as confirmed by echocardiogram in November and December. EF is preserved. EKG does not show any significant ST elevations. Cardiac enzymes were negative. Hold on any anticoagulation or cardiology consult for now. 3. Diabetes mellitus type 2 Patient likely okay to resume baseline metformin if okay with primary service. Would continue sliding scale insulin with meals. 4. Bladder cancer/depression/hypertension/hypothyroidism/advanced age Complicates care, management, recovery and prognosis. Okay to resume home medications from my perspective, except for Lasix. This will be given IV. On discharge, patient can resume baseline Lasix therapy. Code Visit Inpatient E&M: [id number] [facility] Hosp L2
[2017-12-29 11:31] LABS: Bedside Glucose 115 mg/dL (70-110)
--- NOTE | 2017-12-30 07:38 | PCM.DC.SUM ---
Discharge Date and Diagnosis Date of Admission: 12/27/17 Date of Discharge: 12/29/17 - Secondary Discharge Diagnosis Chronic Problems Aortic stenosis (Chronic) Last valve area 0.95 cm? Hypertension (Chronic) Depression (Chronic) Hospital Course and Treatment Operations: - - Sling and TURBT Procedures: None Summary of Care Provided: The patient is a 72 year old female with critical aortic aortic stenosis underwent a sling placement and transurethral resection of a small bladder tumor postoperatively she developed immediate pulmonary edema and congestive heart failure had to be diuresed was in the ICU overnight on BiPAP finally was back to normal oxygenation and was discharged home after she was able to urinate. Discharge Diet: Light diet - advance as tolerated Discharge Activity: Return to Normal Activity Call your doctor if your incision/area has: Continuous Slow Oozing, Sudden Increased Bleeding, Increased Pain/ Swelling, Increased Redness, Foul Smelling Discharge, Swelling at the incision site Home Medications: Medications to take at Discharge Ascorbic Acid [Vitamin C] 1,000 mg PO BID 10/30/17 Biotin 5,000 mcg PO QHS 10/30/17 Chromium Picolinate 1,000 mcg PO BID 10/30/17 Cinnamon Bark [Cinnamon] 1,000 mg PO BID 10/30/17 Copper Gluconate [Copper] 2 mg PO DAILY 10/30/17 Cyanocobalamin (Vitamin B-12) [Vitamin B-12] 500 mcg PO BID 10/30/17 Folic Acid 1 mg PO DAILY@0800 10/30/17 Gabapentin [Neurontin] 300 mg PO TID 10/30/17 Gluc/Elmo-MSM#1/C/Rahul/Alex/Bor [Osteo Bi-Flex Caplet] 2 each PO DAILY 10/30/17 Kelp 600 mcg PO BID 10/30/17 Krill Oil 1,000 mg PO DAILY 10/30/17 Levothyroxine [Synthroid] 175 mcg PO DAILY 10/30/17 Lovastatin [Mevacor] 20 mg PO DAILY 10/30/17 Lutein 20 mg PO DAILY 10/30/17 Metformin HCl [Metformin HCl ER] 500 mg PO BID 10/30/17 Paroxetine HCl [Paxil] 30 mg PO DAILY 10/30/17 Vits [Prenatabs FA ] 2 tablet PO DAILY 10/30/17 Pyridoxine HCl [Vitamin B-6] 100 mg PO BID 10/30/17 Ubidecarenone [Coq10] 200 mg PO DAILY 10/30/17 Docusate Sodium [Colace] 100 mg PO BID PRN PRN #60 cap 11/04/17 Furosemide [Lasix] 20 mg PO DAILY #30 tab 11/06/17 Calcium Carbonate/Vitamin D3 [Calcium 500-Vit D3 600 Tablet] 1,200 mg PO DAILY 12/20/17 Ciprofloxacin [Cipro] 500 mg PO BID #6 tab 12/27/17 Hydrocodone/Acetaminophen [[place] 5-325 Tablet] 1 ea PO Q4H PRN PRN #14 tab 12/27/17 Following Prescrptions Were Given to Patient: Hydrocodone/Acetaminophen [[place] 5-325 Tablet] 1 ea PO Q4H PRN PRN #14 tab PRN Reason: Pain Ciprofloxacin [Cipro] 500 mg PO BID #6 tab Primary Care Physician: Raudel Marquez [Primary Care Provider] - Please Follow Up With: Bipin Murray MD When: Appt SaturdayJan 07 at 10:15 am. Patient Instructions: Treating Bladder Cancer: TUR (Transurethral Resection) Meaningful Use Info Meaningful Use Diagnoses (Choose all that apply): None applicable
== END 2017-12-29 17:06 | disposition home or self-care (01) | DRG 981 ==
LOC: ICU 09:18 → PCU 12-29 16:05
PROVIDERS: Anesthesiology; Internal Medicine Critical Care Medicine; Admitting Provider Urology; Family Provider Family Medicine; PCP Family Medicine; Visit Provider Urology
PROC: 0TBB8ZZ Excision of Bladder, Via Natural or Artificial Opening Endoscopic (ICD-10-PCS; principal; 2017-12-27 07:20)
DX: I11.0 Hypertensive heart disease with heart failure (principal); J96.01 Acute respiratory failure with hypoxia; C67.2 Malignant neoplasm of lateral wall of bladder; I50.33 Acute on chronic diastolic (congestive) heart failure; I35.0 Nonrheumatic aortic (valve) stenosis; N39.3 Stress incontinence (female) (male); F32.9 Major depressive disorder, single episode, unspecified; E11.9 Type 2 diabetes mellitus without complications; Z79.84 Long term (current) use of oral hypoglycemic drugs; Z79.899 Other long term (current) drug therapy; Z87.891 Personal history of nicotine dependence
CPT/HCPCS: 71045; 80048; 80076; 82962; 83036; 83735; 84100; 84132; 84443; 84484; 85025; 85027; 87641; 88307; 88341; 88342; 94002; J7050; J7120; A4216; C1771; J1940; J2405; J3490; J9280

== ENCOUNTER → 2018-10-28 18:05 | Outpatient (CLI) | payer MEDICARE, SELFPAY ==
--- NOTE | 2018-10-28 15:45 | FLU_PTH ---
PATIENT: JONATHAN QUINTANILLA LOC: [facility] U#:[id number] AGE/SX: 80/F ROOM: RE10/28/[address]: Dr. Bipin Murray MD : 1945 BED: DIS: SPEC #: [id number] RECD: 10/28/18 16:00 STATUS: KARLEY MARYSE #: [id number] FRANCK: 10/28/18 15:[address]: Bipin Murray DEPT: CYTOLOGY RECD BY: Junior Jones ENTERED: 10/29/18 10:31 SP TYPE: Fluid OTHR DR: Dr. Raudel Marquez MD Tissues: Urine Procedures: Pap Stain (control) Special Stain Group II Cytospin Fluid HEADER OPERATION: Not noted PRE-OP DIAGNOSIS: C67.2 TISSUE SUBMITTED: Urine for cytology DIAGNOSIS CYTOLOGY Urine for cytology (cytospin): Marked acute inflammation and abundant bacterial colonies. Negative for malignant cells. AM:deny 10/30/18 CYTOLOGY STUDY Slides are reviewed. CYTOLOGY GROSS Received is 20 ml of cloudy yellow labeled with the patient's name and and designated per the requisition as urine. Submitted for cytology preparation. / CC:cc 10/29/18 TC:2 CPT: 14411
[2018-10-28 18:09] LABS: Cytology, Body Fluid / CSF SEE PATHOLOGY REPORT
--- OUTSIDE RECORDS SUMMARY | 2018-12-24 09:50 | XMS RPT_ITS ---
:1945 Author Organization OHIP Support Name Relationship Address Phone R Unavailable Unavailable Unavailable YUMIKO QUINTANILLA Unavailable [address] + [place] [address] NOT GIVEN Unavailable Unavailable Unavailable YUMIKO QUINTANILLA Unavailable [address] + [place] [address] YUMIKO QUINTANILLA Unavailable [address] [place] [address] DWIGHT, VASILIY Unavailable [address] [facility] [address] [phone] [place] [address] SWMARIANNA, VASILIY Unavailable [address] [facility] [address] [phone] [place] [address] NOT GIVEN Unavailable Unavailable Unavailable YUMIKO QUINTANILLA Unavailable [address] + [place] [address] YUMIKO QUINTANILLA Unavailable [address] [place] [address] DWIGHT, VASILIY Unavailable [address] [phone] [place] [address] SWMARIANNA, VASILIY Unavailable [address] [phone] [place] [address] SWMARIANNA, VASILIY Unavailable [address] [phone] [place] [address] SWANK, VASILIY Unavailable [address] [phone] [place] [address] SWMARIANNA, VASILIY Unavailable [address] + [place] [address] SWANK, VASILIY Unavailable [address] + [place] [address] NOT GIVEN Unavailable Unavailable Unavailable YUMIKO QUINTANILLA Unavailable [address] + [place] [address] YUMIKO QUINTANILLA Unavailable [address] [place] [address] NOT GIVEN Unavailable Unavailable Unavailable YUMIKO QUINTANILLA Unavailable [address] + [place] [address] YUMIKO QUINTANILLA Unavailable [address] [place] [address] SWMARIANNA, VASILIY Unavailable [address] [facility] [address] + [place] [address] SWANK, VASILIY Unavailable [address] [facility] [address] + [place] [address] NOT GIVEN Unavailable Unavailable Unavailable YUMIKO QUINTANILLA Unavailable [address] + [place] [address] YUMIKO QUINTANILLA Unavailable [address] [place] [address] R Unavailable Unavailable Unavailable YUMIKO QUINTANILLA Unavailable [address] + [place] [address] R Unavailable Unavailable Unavailable YUMIKO QUINTANILLA Unavailable [address] + [place] [address] Care Team Providers Name Role Phone THA PENG., DR. Franci BOWMAN Attending Unavailable THA NASH, DR. Franci BOWMAN Consulting Unavailable THA PENG., DR. Franci BOWMAN Attending Unavailable THA NASH, DR. Franci BOWMAN Attending Unavailable RAUDEL MARQUEZ MD Primary Care Unavailable THA NASH, DR. Franci BOWMAN Admitting Unavailable LULA NASH, DR. RIVERA Consulting Unavailable JACKIE JOHNSON Consulting Unavailable LELE PASCAL MD Consulting Unavailable RAUDEL MARQUEZ MD Consulting Unavailable SHAILESH GELLER, DR. SNOW Albarado Consulting Unavailable THA NASH, DR. Franci BOWMAN Attending Unavailable RAUDEL MARQUEZ MD Primary Care Unavailable THA NASH, DR. Franci BOWMAN Attending Unavailable RAUDEL MARQUEZ MD Primary Care Unavailable GRACIE ALMAZAN Admitting Unavailable GRACIE ALMAZAN Attending Unavailable RAUDEL MARQUEZ Referring Unavailable GRACIE ALMAZAN Primary Care Unavailable RAUDEL MARQUEZ Admitting Unavailable RAUDEL MARQUEZ Attending Unavailable RAUDEL MARQUEZ Primary Care Unavailable RAUDEL MARQUEZ Consulting Unavailable PROVIDER, UNKNOWN Consulting Unavailable PROVIDER, UNKNOWN Consulting Unavailable PROVIDER, UNKNOWN Consulting Unavailable NAIDA, LELE Admitting Unavailable NAIDA, LELE Attending Unavailable NAIDA, LELE Primary Care Unavailable JIMMY, RAUDEL Consulting Unavailable PROVIDER, UNKNOWN Consulting Unavailable PROVIDER, UNKNOWN Consulting Unavailable PROVIDER, UNKNOWN Consulting Unavailable SARDAR, GRACIE Admitting Unavailable SARDAR, GRACIE Attending Unavailable SARDAR, GRACIE Primary Care Unavailable BROWN, RAUDEL Consulting Unavailable PROVIDER, UNKNOWN Consulting Unavailable PROVIDER, UNKNOWN Consulting Unavailable PROVIDER, UNKNOWN Consulting Unavailable OSBALDO, DR GAEL Jaramillo Admitting Unavailable OSBALDO, DR GAEL Jaramillo Attending Unavailable ROBLERO, DR GAEL Jaramillo Primary Care Unavailable BROWN, RAUDEL Consulting Unavailable BROWN, RAUDEL Referring Unavailable PROVIDER, UNKNOWN Consulting Unavailable PROVIDER, UNKNOWN Consulting Unavailable PROVIDER, UNKNOWN Consulting Unavailable Terri, Bipin Dickson Attending Unavailable Jimmy, Raudel Primary Care Unavailable Terri, Bipin Dickson Referring Unavailable KvngJas emmanuel Consulting Unavailable Terri, Bipin Dickson Admitting Unavailable Jas Calderon Attending Unavailable Terri, Bipin Dickson Referring Unavailable Terri, Bipin Dickson Attending Unavailable Raudel Marquez Primary Care Unavailable Terri, Bipin Dickson Referring Unavailable PROBLEMS PROBLEMS DATE TYPE CONDITION / CODE ATTENDING STATUS SOURCE 10/30/2018 Unknown 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 / Hospital C67.2(ICD-10) Repository 03/17/2018 Admitting Nonrheumatic aortic SARDAR GRACIE Active [facility] Diagnosis (valve) stenosis / [facility] I350(ICD-10) Hospital Repository 03/17/2018 Principle Nonrheumatic aortic SARDAR GRACIE Active [facility] Diagnosis (valve) stenosis / [facility] I350(ICD-10) Hospital Repository 03/17/2018 Secondary Pulmonary SARDAR GRACIE Active [facility] Diagnosis hypertension, [facility] unspecified / Hospital I2720(ICD-10) Repository 03/17/2018 Secondary Type 2 diabetes SARDAR GRACIE Active [facility] Diagnosis mellitus without [facility] complications / [facility] E119(ICD-10) Repository 03/17/2018 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 [facility] valve / Hospital Z952(ICD-10) Repository 01/10/2018 Unknown 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 Submitted for cytology preparation. / CC:cc 10/29/18 TC:2 CPT: 23437 CYTOLOGY STUDY Slides are reviewed. DIAGNOSIS CYTOLOGY Urine for cytology (cytospin): Marked acute inflammation and abundant bacterial colonies. Negative for malignant cells. AM:rg 10/30/18 HEADER OPERATION: Not noted PRE-OP DIAGNOSIS: C67.2 TISSUE SUBMITTED: Urine for cytology Signed [facility] 10/30/18 <signature on file> Performed By: #### PFLU #### [facility] [address] [facility] [place], [address] CYTOLOGY, BODY FLUID / Collected: 10/28/2018 Status: F Source: [place] CSF 3:45 PM [facility] Order Comment: Specimen Source: URINE TYPE CODE TESTS RESULT OUT OF RANGE REFERENCE UNITS LAB L350.1000 SEE Normal PATHOLOGY CYTOLOGY,BF REPORT /CSF Result Comment: Specimen submitted to Anatomical Pathology Department for testing. Performed By: #### L350.1000 #### [facility] [address] [facility] [place], [address] EMERGENCY REPORT Observed: 05/26/2018 Status: F Source: RAKESH GOMEZ 7:30 AM [facility] EM[facility]Y ROOM REPORT NAME ACCOUNT SEX AGE ADMIT DISCHARGE PT MED. RECORD# NUMBER DATE DATE TYPE JONATHAN QUINTANILLA [id number] F 72 05/19/18 05/19/18 [id number] ROOM: ER DATE OF : 1945 DICTATING PHYSICIAN: Gael Roblero CHIEF COMPLAINT: Chest pain. HISTORY OF PRESENT ILLNESS: The patient states that she felt fine today. She had an appointment with Dr. Pascal, the contract admin, and while she was in the office developed a mid-chest pain. This was mainly substernal and not radiating. She states it lasted about 10 minutes and then seemed to resolve. She had no associated shortness of breath, diaphoresis, radiation of her pain, nausea or vomiting. She had an EKG during this time in the office, which was negative. She was sent here for further evaluation. She has no pain at this time. No recent illnesses. No fever, chills, cough or congestion. I did review her heart catheterization that she had prior to the aortic valve replacement. This showed very minimal coronary disease, most of which were clear or showed 10-20% lesions. She had good LV function. PAST MEDICAL HISTORY: Significant for hypertension. PAST SURGICAL HISTORY: She has had an aortic valve replacement in January of this year at [facility]. She has had previous hysterectomy and orthopedic knee surgery. MEDICATIONS: She is on medications per the medication reconciliation list. ALLERGIES: She has no allergies. SOCIAL HISTORY: The patient lives at home with her , who accompanies her here. She has smoked in the past. She does not smoke presently. She does not drink alcohol. REVIEW OF SYSTEMS: No recent trauma. She did not eat anything today. She does not have a significant history of heartburn or bowel or bladder symptoms. No urinary symptoms. No pain or swelling to the extremities. PHYSICAL EXAMINATION: This is a 72-year-old pleasant female who is alert and appropriate. She does not appear toxic or in acute distress. Her skin is pink, warm and dry. HEENT examination is all within normal limits. Her neck is supple without JVD. No chest wall tenderness. Cardiac examination is a regular rhythm without any ectopy, murmurs, gallops or rubs. Lungs are clear. No crackles or wheezes. Abdomen is soft and nontender. She moves all extremities appropriately. Good peripheral pulses. Good Page 1 of 2 JONATHAN QUINTANILLA Emergency Room Report capillary refill. She does not have any redness, tenderness, asymmetry, clubbing, cyanosis or edema. Vital signs: Temperature is 98.4, pulse 58, respirations 18, and blood pressure 149/59. Oxygen saturation was 93%. DIAGNOSTIC DATA: The patient had an EKG which showed sinus rhythm without any acute abnormalities. 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 A number of laboratory studies were obtained showing a CBC that was completely normal. D-dimer was normal at 175. Magnesium was 2.1. BNP was 70. Troponin was 0.01. CMP is essentially all normal. BUN and creatinine were 24 and 0.9. Glucose was 142. A repeat troponin was also 0.01. EMERGENCY DEPARTMENT COURSE AND TREATMENT: She remained pain-free throughout her ED stay. The patient had a brief episode of chest pain, cause unclear, but would be suspicious of more of a reflux etiology. With negative enzymes and a negative recent heart catheterization, it is very unlikely that this is acute coronary syndrome. No evidence of any PE or great vessel disease. The patient was discharged to home to follow up with her family care or contract admin as needed. Dictated By: Gael Roblero MD 05/19/18 18:34 JOB #: [id number] Transcribed By: yoandy 05/20/18 06:29 Electronically signed by: PATIRCIA Roblero M.D. 05/26/18 07:28 Page 2 of 2 JONATHAN QUINTANILLA Emergency Room Report TROPONIN Collected: 05/19/2018 Status: F Source: [facility] 5:25 PM [facility] REPOSITORY TYPE CODE TESTS RESULT OUT OF REFERENCE UNITS RANGE LAB TROPONIN 0.00 - 0.05 ng/ml I(LOINC) TROPONIN I 0.01 Result Comment: Elevated troponin (above the 99th percentile) usually indicates myocardial ischemia. Results must be interpreted within the clinical setting. 1.Non-ischemic pathology can also cause elevated troponin levels (e.g., acute pulmonary embolism, myocarditis, pericarditis, heart failure, intracranial injury, rhabdomyolisis, sepsis, shock and renal insufficiency). 2.Approximately 1% of healthy adults have elevated troponin levels. 3.Analytical false positive results rarely occur(due to multiple interferences such as heterophile antibodies). Performed By: #### [id number] #### [facility],[address] [place] [address] CHEST 1 VIEW Observed: 05/19/2018 Status: F Source: RAKESH GOMEZ 3:35 PM [facility] REPOSITORY [place] [address] [place] [address] Patient: JONATHAN QUINTANILLA Phone#: : 1945 Age: 72 Gender: F Pt. Type: ER Account: [id number] Location: 052 Ordering: GAEL ROBLERO Exam Date: 05/19/2018/15:16 Family Phys: RAUDEL JIMMY Charge Code: [id number] Physician: [place] Order #: [id number] DLP Dose#: PROCEDURE: X-RAY CHEST 1 VIEW COMPARISON: None. INDICATIONS: Chest pain FINDINGS: LUNGS: Small right retrocardiac density measuring 0.7 cm. VASCULATURE: Normal. Unremarkable pulmonary vasculature. CARDIAC: Normal. No cardiac silhouette abnormality or cardiomegaly. MEDIASTINUM: Aortic arch calcification. PLEURA: Normal. No effusion or pleural thickening. BONES: Normal. No fracture or visible bony lesion. OTHER: Monitoring leads project across the thorax. CONCLUSION: 1. Small right retrocardiac density. This may represent atelectasis versus nodule. When the patient is clinically able recommend followup 2-view PA and lateral chest radiograph. Dictated by: Eleonora Kaur MD on 05/19/2018 at 15:45 Approved by: Eleonora Kaur MD on 05/19/2018 at 15:45 CBC Collected: 05/19/2018 Status: F Source: [facility]ESH [place] 3:20 PM [facility] REPOSITORY TYPE CODE TESTS RESULT OUT OF RANGE REFERENCE UNITS LAB CBC(LOINC) CBC Result Comment: CBC-COMPLETE BLOOD COUNT LAB WBC(LOINC) 4.5 - 10.8 x 10EE3/UL WBC 7.8 LAB RBC(LOINC) 4.10 - x 10EE6/UL 5.30 RBC 4.26 LAB HEMOGLOBIN(LOINC) 12.0 - g/dl 16.0 HEMOGLOBIN 13.5 LAB HEMATOCRIT(LOINC) 34.0 - % 46.0 HEMATOCRIT 40.1 LAB MCV(LOINC) 80 - 99 fl MCV 94 LAB MCH(LOINC) 27 - 33 pg MCH 32 LAB MCHC(LOINC) 32 - 36 X10 3 MCHC 34 LAB RDW/CV(LOINC) 12.0 - % 15.6 RDW/CV 14.3 LAB PLATELET(LOINC) 150 - 450 x10EE3/UL PLATELET 176 LAB MPV(LOINC) 6.6 - 10.5 fl MPV 7.9 Result Comment: AUTOMATED DIFFERENTIAL LAB NEUT %(LOINC) 46.0 - 76.0 % NEUT % 60.7 LAB LYMPH %(LOINC) 20.0 - 45.0 % LYMPH % 27.6 LAB MONOS %(LOINC) 0.0 - 10.0 % MONOS % 7.0 LAB EO %(LOINC) 0.0 - 7.0 % EO % 3.5 LAB BASO %(LOINC) 0.0 - 2.0 % BASO % 1.2 LAB Lymph #(LOINC) 0.80 - 2.80 x10EE3/U L Lymph # 2.20 LAB Neut #(LOINC) 1.50 - 7.10 x10EE3/U L Neut # 4.70 LAB [place] #(LOINC) 0.20 - 1.00 x10EE3/U L [place] # 0.60 LAB EO #(LOINC) 0.00 - 0.50 x10EE3/U L EO # 0.30 LAB Baso #(LOINC) 0.00 - 0.10 x10EE3/U L Baso # 0.10 LAB MANUAL DIFF(LOINC) MANUAL DIFF N/A LAB MORPHOLOGY(LOINC ) MORPHOLOGY N/A Result Comment: {CD] Performed By: #### [id number] #### [place] [address] D-DIMER, QUANTITATIVE Collected: 05/19/2018 Status: F Source: RAKESH [place] 3:20 PM [facility] REPOSITORY TYPE CODE TESTS RESULT OUT OF REFERENCE UNITS RANGE LAB D-DIMER, QUANTITATI VE(LOINC) D-DIMER, QUANTITATIVE Result Comment: QUANT D-DIMER LAB D-DIMER QUANT(LOINC) 0 - 230 ng/ml D-DIMER QUANT 177 Performed By: #### [id number] #### [place] [address] BNP (B-TYPE NATRIURETIC Collected: 05/19/2018 Status: F Source: RAKESH GOMEZ PEPTIDE) 3:20 PM [facility] REPOSITORY TYPE CODE TESTS RESULT OUT OF RANGE REFERENCE UNITS LAB BNP(INC) 1 - 100 pg/ml BNP 70 Performed By: #### [id number] #### [place] [address] TROPONIN Collected: 05/19/2018 Status: F Source: [facility] 3:20 PM [facility] REPOSITORY TYPE CODE TESTS RESULT OUT OF REFERENCE UNITS RANGE LAB TROPONIN 0.00 - 0.05 ng/ml I(LOINC) TROPONIN I 0.01 Result Comment: Elevated troponin (above the 99th percentile) usually indicates myocardial ischemia. Results must be interpreted within the clinical setting. 1.Non-ischemic pathology can also cause elevated troponin levels (e.g., acute pulmonary embolism, myocarditis, pericarditis, heart failure, intracranial injury, rhabdomyolisis, sepsis, shock and renal insufficiency). 2.Approximately 1% of healthy adults have elevated troponin levels. 3.Analytical false positive results rarely occur(due to multiple interferences such as heterophile antibodies). Performed By: #### [id number] #### [place] [address] CMP WITH EGFR Collected: 05/19/2018 Status: F Source: [facility] 3:20 PM [facility] REPOSITORY TYPE CODE TESTS RESULT OUT OF RANGE REFERENCE UNITS LAB CMP with eGFR(LOINC) CMP with eGFR Result Comment: COMPREHENSIVE METABOLIC PANEL LAB SODIUM(LOINC) 136 - 145 mmol/l SODIUM 142 LAB POTASSIUM(LOINC) 3.5 - 5.1 mmol/L POTASSIUM 4.3 LAB CHLORIDE(LOINC) 98 - 107 mmol/L CHLORIDE 107 LAB CO2(LOINC) 21.0 - mmol/L 31.0 CO2 23.5 LAB GLUCOSE(LOINC) 74 - 106 mg/dl GLUCOSE High 142 LAB BUN(LOINC) 6 - 20 mg/dl BUN High 24 LAB CREATININE(LOINC) 0.6 - 1.2 mg/dl CREATININE 0.9 LAB AST/SGOT(LOINC) 13 - 39 U/L AST/SGOT 17 LAB ALK PHOS(LOINC) 38 - 126 U/L ALK PHOS 58 LAB CALCIUM(LOINC) 8.6 - mg/dl 10.2 CALCIUM 8.6 LAB TOTAL 6.4 - 8.3 g/dl PROTEIN(LOINC) TOTAL PROTEIN 6.8 LAB ALBUMIN(LOINC) 3.4 - 4.8 g/dL ALBUMIN 4.0 LAB GLOBULIN(LOINC) 1.5 - 3.8 G/DL GLOBULIN 2.8 LAB A/G RATIO(LOINC) 0.9 - 1.6 A/G RATIO 1.4 LAB TOTAL BILI(LOINC) 0.0 - 1.5 mg/dl TOTAL BILI 0.6 LAB B/C RATIO(LOINC) 0 - 30 ratio B/C RATIO 27 LAB ALT/SGPT(LOINC) 8 - 35 U/L ALT/SGPT 10 LAB ANION GAP(LOINC) 10 - 20 mmol/L ANION GAP 16 LAB AGE(LOINC) years AGE 72 LAB eGFR(LOINC) 60 - 999 ML/MINUTE eGFR >60 LAB eGFR(AA)(LOINC) 60 - 999 ML/MINUTE eGFR(AA) >60 Result Comment: ACCORDING TO THE NATIONAL KIDNEY DISEASE EDUCATION PROGRAM(NKDE), A NORMAL eGFR IS A VALUE GREATER THAN OR EQUAL TO 60 ML/MIN/1.73 SQ METERS. CHRONIC KIDNEY DISEASE: <60mL/MIN/1.73 SQ METERS KIDNEY FAILURE: <15mL/MIN/1.73 SQ METERS THIS TEST SHOULD ONLY BE USED FOR PATIENTS 18 YEARS OF AGE AND OLDER. Performed By: #### [id number] #### [place] [address] MAGNESIUM Collected: 05/19/2018 Status: F Source: [facility] 3:20 PM [facility] REPOSITORY TYPE CODE TESTS RESULT OUT OF REFERENCE UNITS RANGE LAB MAGNESIUM( 1.6 - 2.6 mg/dl LOINC) MAGNESIUM 2.1 Performed By: #### [id number] #### [place] [address] CBC Collected: 04/02/2018 Status: F Source: [facility] 11:45 AM [facility] REPOSITORY TYPE CODE TESTS RESULT OUT OF REFERENCE UNITS RANGE LAB WBC(LOINC) 4.50-10.80 10 3/mcL WBC 8.40 LAB RBCCT(LOINC 4.10-5.30 10 6/mcL ) RBC 4.17 LAB HGB(LOINC) 12.0-16.0 G/dL Hgb 13.1 LAB HCT(LOINC) 34.0-46.0 % Hct 39.2 LAB MCV(LOINC) 80.0-99.0 fL MCV 93.9 LAB MCH(LOINC) 27.0-33.0 pg MCH 31.5 LAB MCHC(LOINC) 32.0-36.0 G/dL MCHC 33.5 LAB RDW(LOINC) 11.5-15.5 % RDW 14.3 LAB PLT(LOINC) 150-450 10 3/mcL Platelet 159 LAB MPV(LOINC) 6.6-10.5 fL MPV 8.0 Performed By: #### CBC, ADIFF, ANEU, GFR, CMP #### [address] [address] .AUTO DIFF Collected: 04/02/2018 Status: F Source: [facility] 11:45 AM [facility] REPOSITORY TYPE CODE TESTS RESULT OUT OF REFERENCE UNITS RANGE LAB CA(LOINC) 50.0-75.0 % Neutrophil % 55.4 LAB LYM(LOINC) 20.0-40.0 % Lymphocyte % 34.0 LAB MON(LOINC) 2.0-13.0 % Monocyte % 6.5 LAB EO(LOINC) 0.0-6.0 % Eosinophil % 3.7 LAB BAS(LOINC) 0.0-2.5 % Basophil % 0.4 LAB ABLYM(LOIN 0.90-4.32 10 3/mcL C) Lymphocyte, 2.90 Absolute LAB FINN(LOINC 0.09-1.40 10 3/mcL ) Monocyte, 0.50 Absolute LAB AEOS(LOINC 0.00-0.65 10 3/mcL ) Eosinophil, 0.30 Absolute LAB ABAS(LOINC 0.00-0.27 10 3/mcL ) Basophil, 0.00 Absolute Performed By: #### CBC, ADIFF, ANEU, GFR, CMP #### [address] [address] .NEUABS Collected: 04/02/2018 Status: F Source: [facility] 11:45 AM [facility] REPOSITORY TYPE CODE TESTS RESULT OUT OF REFERENCE UNITS RANGE LAB ANEU(LOINC) 2.25-8.10 10 3/mcL Neutrophil, 4.70 Absolute Performed By: #### CBC, ADIFF, ANEU, GFR, CMP #### [address] [address] .GFR Collected: 04/02/2018 Status: F Source: [facility] 11:45 AM [facility] REPOSITORY TYPE CODE TESTS RESULT OUT OF REFERENCE UNITS RANGE LAB GFRAA(LOINC ml/min/1.73 ) sqm GFR >60 [place] Result Comment: GFR Population mean for , Non- Americans Ages 20-29 = 116 mL/min/1.73 sq.m. Ages 30-39 = 107 mL/min/1.73 sq.m. Ages 40-49 = 99 mL/min/1.73 sq.m. Ages 50-59 = 93 mL/min/1.73 sq.m. Ages 60-69 = 85 mL/min/1.73 sq.m. Ages 70+ = 75 mL/min/1.73 sq.m. Chronic Kidney Disease: Less than 60 mL/min/1.73 square meters End Stage Renal Disease: Less than 15 mL/min/1.73 square meters LAB GFRNO(LOINC) ml/min/1.73sqm GFR Non- >60 Result Comment: GFR Population mean for , Non- Americans Ages 20-29 = 116 mL/min/1.73 sq.m. Ages 30-39 = 107 mL/min/1.73 sq.m. Ages 40-49 = 99 mL/min/1.73 sq.m. Ages 50-59 = 93 mL/min/1.73 sq.m. Ages 60-69 = 85 mL/min/1.73 sq.m. Ages 70+ = 75 mL/min/1.73 sq.m. Chronic Kidney Disease: Less than 60 mL/min/1.73 square meters End Stage Renal Disease: Less than 15 mL/min/1.73 square meters Performed By: #### SHANA, ADIFF, ANEU, GFR, CMP #### [address] [address] CMP Collected: 04/02/2018 Status: F Source: [facility] 11:45 AM [facility] REPOSITORY TYPE CODE TESTS RESULT OUT OF REFERENCE UNITS RANGE LAB GLU(LOINC) 82-115 mg/dL Glucose High Level 164 LAB NA(LOINC) 136-145 mEq/L Sodium Level 143 LAB K(LOINC) 3.5-5.0 mEq/L Potassium Level 4.5 LAB CL(LOINC) 98-110 mEq/L Chloride 106 LAB CO2(LOINC) 22-32 mEq/L CO2 29 LAB EBAL(LOINC 4.0-15.0 mEq/L ) Electrolyte Balance 8.0 LAB BUN(LOINC) 8.0-22.0 mg/dL BUN 17.0 LAB CRE(LOINC) 0.50-1.20 mg/dL Creatinine Lvl (s) 0.77 LAB BC(LOINC) 10.0-22.0 ratio High BUN/Creatinine 22.1 Ratio LAB CA(LOINC) 8.4-10.1 mg/dL Calcium Lvl 8.4 LAB PROT(LOINC 6.0-8.5 G/dL ) Total Protein 7.2 LAB ALB(LOINC) 3.2-4.8 G/dL Albumin Level 3.9 LAB GLB(LOINC) 1.5-3.8 G/dL Globulin 3.3 LAB AG(LOINC) 0.9-1.6 ratio A/G Ratio 1.2 LAB BILT(LOINC 0.2-1.2 mg/dL ) Bili Total 0.5 LAB AP(LOINC) 38-126 U/L Alk Phos 79 LAB AST(LOINC) 8-34 U/L AST/SGOT 23 LAB ALT(LOINC) 10-49 U/L ALT/SGPT 18 Performed By: #### CBC, ADIFF, ANEU, GFR, CMP #### [place] [address] BMP Collected: 03/05/2018 Status: F Source: [facility] 11:47 AM [facility] REPOSIT[facility] TYPE CODE TESTS RESULT OUT OF REFERENCE UNITS RANGE LAB GLU(LOINC) 82-115 mg/dL Glucose High Level 146 LAB NA(LOINC) 136-145 mEq/L Sodium Level 139 LAB K(LOINC) 3.5-5.0 mEq/L Potassium Level 3.7 LAB CL(LOINC) 98-110 mEq/L Chloride 102 LAB CO2(LOINC) 22-32 mEq/L CO2 30 LAB EBAL(LOINC 4.0-15.0 mEq/L ) Electrolyte Balance 7.0 LAB BUN(LOINC) 8.0-22.0 mg/dL BUN 15.0 LAB CRE(LOINC) 0.50-1.20 mg/dL Creatinine Lvl (s) 0.74 LAB BC(LOINC) 10.0-22.0 ratio BUN/Creatinine 20.3 Ratio LAB CA(LOINC) 8.4-10.1 mg/dL Low Calcium Lvl 8.1 Performed By: #### BMP, GFR #### [address] [address] .GFR Collected: 03/05/2018 Status: F Source: [facility] 11:47 AM [facility] REPOSITORY TYPE CODE TESTS RESULT OUT OF REFERENCE UNITS RANGE LAB GFRAA(LOINC ml/min/1.73 ) sqm GFR >60 [place] Result Comment: GFR Population mean for , Non- Americans Ages 20-29 = 116 mL/min/1.73 sq.m. Ages 30-39 = 107 mL/min/1.73 sq.m. Ages 40-49 = 99 mL/min/1.73 sq.m. Ages 50-59 = 93 mL/min/1.73 sq.m. Ages 60-69 = 85 mL/min/1.73 sq.m. Ages 70+ = 75 mL/min/1.73 sq.m. Chronic Kidney Disease: Less than 60 mL/min/1.73 square meters End Stage Renal Disease: Less than 15 mL/min/1.73 square meters LAB GFRNO(LOINC) ml/min/1.73sqm GFR Non- >60 Result Comment: GFR Population mean for , Non- Americans Ages 20-29 = 116 mL/min/1.73 sq.m. Ages 30-39 = 107 mL/min/1.73 sq.m. Ages 40-49 = 99 mL/min/1.73 sq.m. Ages 50-59 = 93 mL/min/1.73 sq.m. Ages 60-69 = 85 mL/min/1.73 sq.m. Ages 70+ = 75 mL/min/1.73 sq.m. Chronic Kidney Disease: Less than 60 mL/min/1.73 square meters End Stage Renal Disease: Less than 15 mL/min/1.73 square meters Performed By: #### BMP, GFR #### [address] [address] PRO Collected: 03/05/2018 Status: F Source: [facility] 6:21 AM [facility] REPOSITORY TYPE CODE TESTS RESULT OUT OF REFERENCE UNITS RANGE LAB PT(LOINC) 9.0-14.5 seconds Protime 11.7 Result Comment: Effective 06/15/08, Protime results may be affected by some antibiotics (i.e. Ciprofloxacin, Azithromycin, Bactrim) which may potentiate the action of oral anticoagulants, with further increases in Protime/INR. LAB INR(LOINC) ratio PT International Ratio 1.0 Result Comment: The [place] [employer] (CHEST, 1992, 102:312S-25S) recommended therapeutic range for oral anticoagulant therapy is: LOW RISK: Prophylaxis of venous thrombosis INR: 2.0-3.0 Treatment of pulmonary embolism 2.0-3.0 Prevention of systemic embolism 2.0-3.0 HIGH RISK: Mechanical prosthetic valves 2.5-3.5 Performed By: #### PRO #### [place] [address] CBC Collected: 03/04/2018 Status: F Source: [facility] 11:52 AM [facility] REPOSITORY TYPE CODE TESTS RESULT OUT OF REFERENCE UNITS RANGE LAB WBC(LOINC) 4.50-10.80 10 3/mcL WBC 5.70 LAB RBCCT(LOINC 4.10-5.30 10 6/mcL ) Low RBC 3.61 LAB HGB(LOINC) 12.0-16.0 G/dL Low Hgb 11.4 LAB HCT(LOINC) 34.0-46.0 % Low Hct 33.9 LAB MCV(LOINC) 80.0-99.0 fL MCV 94.0 LAB MCH(LOINC) 27.0-33.0 pg MCH 31.5 LAB MCHC(LOINC) 32.0-36.0 G/dL MCHC 33.5 LAB RDW(LOINC) 11.5-15.5 % RDW 14.0 LAB PLT(LOINC) 150-450 10 3/mcL Platelet 159 LAB MPV(LOINC) 6.6-10.5 fL MPV 7.0 Performed By: #### CBC, ADIFF, ANEU, TROPI #### [place] [address] .AUTO DIFF Collected: 03/04/2018 Status: F Source: [facility] 11:52 [facility] REPOSITORY TYPE CODE TESTS RESULT OUT OF REFERENCE UNITS RANGE LAB CA(LOINC) 50.0-75.0 % Neutrophil % 51.1 LAB LYM(LOINC) 20.0-40.0 % Lymphocyte % 38.8 LAB MON(LOINC) 2.0-13.0 % Monocyte % 4.3 LAB EO(LOINC) 0.0-6.0 % Eosinophil % 5.4 LAB BAS(LOINC) 0.0-2.5 % Basophil % 0.4 LAB ABLYM(LOIN 0.90-4.32 10 3/mcL C) Lymphocyte, 2.20 Absolute LAB FINN(LOINC 0.09-1.40 10 3/mcL ) Monocyte, 0.20 Absolute LAB AEOS(LOINC 0.00-0.65 10 3/mcL ) Eosinophil, 0.30 Absolute LAB ABAS(LOINC 0.00-0.27 10 3/mcL ) Basophil, 0.00 Absolute Performed By: #### CBC, ADIFF, ANEU, TROPI #### [address] [address] .NEUABS Collected: 03/04/2018 Status: F Source: [facility] 11:52 [facility] REPOSITORY TYPE CODE TESTS RESULT OUT OF REFERENCE UNITS RANGE LAB ANEU(LOINC) 2.25-8.10 10 3/mcL Neutrophil, 2.90 Absolute Performed By: #### CBC, ADIFF, ANEU, TROPI #### [place] [id number] TROPI Collected: 03/04/2018 Status: F Source: [facility] 11:52 [facility] REPOSITORY TYPE CODE TESTS RESULT OUT OF REFERENCE UNITS RANGE LAB TROPI(LOINC 0.000-0.040 ng/mL ) High Troponin I 0.097 Result Comment: Troponin I reference ranges (08/09/14): 0.00-0.040 ng/mL Negative and non-diagnostic. >0.040 ng/mL Consistent with cardiac damage, increased clinical risk and possibility of myocardial infarction. Serial measurements, a rise & fall in test results, clinical history, appropriate symptoms and/or ECG changes may help assess possibility of SC. *Other non-acute coronary syndrome conditions such as CHF, myocarditis, pulmonary emboli, sepsis and cardiac surgery could result in myocardial damage and increased troponin levels. Performed By: #### CBC, MORENITA, JAYCE, TROPI #### [address] [address] CBC Collected: 03/04/2018 Status: F Source: [facility] 11:13 AM [facility] REPOSITORY TYPE CODE TESTS RESULT OUT OF REFERENCE UNITS RANGE LAB WBC(LOINC) 4.50-10.80 10 3/mcL WBC 6.10 LAB RBCCT(LOINC 4.10-5.30 10 6/mcL ) Low RBC 3.70 LAB HGB(LOINC) 12.0-16.0 G/dL Low Hgb 11.6 LAB HCT(LOINC) 34.0-46.0 % Hct 35.0 LAB MCV(LOINC) 80.0-99.0 fL MCV 94.8 LAB MCH(LOINC) 27.0-33.0 pg MCH 31.3 LAB MCHC(LOINC) 32.0-36.0 G/dL MCHC 33.0 LAB RDW(LOINC) 11.5-15.5 % RDW 13.6 LAB PLT(LOINC) 150-450 10 3/mcL Platelet 162 LAB MPV(LOINC) 6.6-10.5 fL MPV 7.4 Performed By: #### CBC, MORENITA, JAYCE, BMP, GFR #### [address] [address] .AUTO DIFF Collected: 03/04/2018 Status: F Source: [facility] 11:13 AM [facility] REPOSITORY TYPE CODE TESTS RESULT OUT OF REFERENCE UNITS RANGE LAB CA(LOINC) 50.0-75.0 % Low Neutrophil % 49.6 LAB LYM(LOINC) 20.0-40.0 % Lymphocyte % 39.0 LAB MON(LOINC) 2.0-13.0 % Monocyte % 5.4 LAB EO(LOINC) 0.0-6.0 % Eosinophil % 5.4 LAB BAS(LOINC) 0.0-2.5 % Basophil % 0.6 LAB ABLYM(LOIN 0.90-4.32 10 3/mcL C) Lymphocyte, 2.40 Absolute LAB FINN(LOINC 0.09-1.40 10 3/mcL ) Monocyte, 0.30 Absolute LAB AEOS(LOINC 0.00-0.65 10 3/mcL ) Eosinophil, 0.30 Absolute LAB ABAS(LOINC 0.00-0.27 10 3/mcL ) Basophil, 0.00 Absolute Performed By: #### CBC, ADIFF, ANEU, BMP, GFR #### [place] [address] .NEUABS Collected: 03/04/2018 Status: F Source: [facility] 11:13 AM [facility] REPOSITORY TYPE CODE TESTS RESULT OUT OF REFERENCE UNITS RANGE LAB ANEU(LOINC) 2.25-8.10 10 3/mcL Neutrophil, 3.00 Absolute Performed By: #### CBC, ADIFF, ANEU, BMP, GFR #### [place] [address] BMP Collected: 03/04/2018 Status: F Source: [facility] 11:13 AM [facility] REPOSITORY Order Comment: within 1/[facility] TYPE CODE TESTS RESULT OUT OF REFERENCE UNITS RANGE LAB GLU(LOINC) 82-115 mg/dL Glucose High Level 189 LAB NA(LOINC) 136-145 mEq/L Sodium Level 142 LAB K(LOINC) 3.5-5.0 mEq/L Potassium Level 3.7 LAB CL(LOINC) 98-110 mEq/L Chloride 106 LAB CO2(LOINC) 22-32 mEq/L CO2 27 LAB EBAL(LOINC 4.0-15.0 mEq/L ) Electrolyte Balance 9.0 LAB BUN(LOINC) 8.0-22.0 mg/dL BUN 20.0 LAB CRE(LOINC) 0.50-1.20 mg/dL Creatinine Lvl (s) 0.63 LAB BC(LOINC) 10.0-22.0 ratio High BUN/Creatinine 31.7 Ratio LAB CA(LOINC) 8.4-10.1 mg/dL Low Calcium Lvl 8.3 Performed By: #### CBC, ADIFF, ANEU, BMP, GFR #### [place] [address] .GFR Collected: 03/04/2018 Status: F Source: [facility] 11:13 AM [facility] REPOSITORY TYPE CODE TESTS RESULT OUT OF REFERENCE UNITS RANGE LAB GFRAA(LOINC ml/min/1.73 ) sqm GFR >60 [place] Result Comment: GFR Population mean for , Non- Americans Ages 20-29 = 116 mL/min/1.73 sq.m. Ages 30-39 = 107 mL/min/1.73 sq.m. Ages 40-49 = 99 mL/min/1.73 sq.m. Ages 50-59 = 93 mL/min/1.73 sq.m. Ages 60-69 = 85 mL/min/1.73 sq.m. Ages 70+ = 75 mL/min/1.73 sq.m. Chronic Kidney Disease: Less than 60 mL/min/1.73 square meters End Stage Renal Disease: Less than 15 mL/min/1.73 square meters LAB GFRNO(LOINC) ml/min/1.73sqm GFR Non- >60 Result Comment: GFR Population mean for , Non- Americans Ages 20-29 = 116 mL/min/1.73 sq.m. Ages 30-39 = 107 mL/min/1.73 sq.m. Ages 40-49 = 99 mL/min/1.73 sq.m. Ages 50-59 = 93 mL/min/1.73 sq.m. Ages 60-69 = 85 mL/min/1.73 sq.m. Ages 70+ = 75 mL/min/1.73 sq.m. Chronic Kidney Disease: Less than 60 mL/min/1.73 square meters End Stage Renal Disease: Less than 15 mL/min/1.73 square meters Performed By: #### CBC, ADIFF, ANEU, BMP, GFR #### [place] [address] RBC (PRODUCT) Collected: 03/04/2018 Status: F Source: [facility] 6:00 AM [facility] REPOSITORY TYPE CODE TESTS RESULT OUT OF REFERENCE UNITS RANGE LAB RBCPR(LOINC ) RBC Product RBC Ready Ready for Pickup Performed By: #### RBCP #### [address] [address] BMP Collected: 03/04/2018 Status: F Source: [facility] 5:46 AM [facility] REPOSITORY TYPE CODE TESTS RESULT OUT OF REFERENCE UNITS RANGE LAB GLU(LOINC) 82-115 mg/dL Glucose High Level 139 LAB NA(LOINC) 136-145 mEq/L Sodium Level 142 LAB K(LOINC) 3.5-5.0 mEq/L Potassium Level 3.8 LAB CL(LOINC) 98-110 mEq/L Chloride 104 LAB CO2(LOINC) 22-32 mEq/L CO2 32 LAB EBAL(LOINC 4.0-15.0 mEq/L ) Electrolyte Balance 6.0 LAB BUN(LOINC) 8.0-22.0 mg/dL BUN High 23.0 LAB CRE(LOINC) 0.50-1.20 mg/dL Creatinine Lvl (s) 0.77 LAB BC(LOINC) 10.0-22.0 ratio High BUN/Creatinine 29.9 Ratio LAB CA(LOINC) 8.4-10.1 mg/dL Low Calcium Lvl 8.3 Performed By: #### BMP, GFR #### [place] [address] .GFR Collected: 03/04/2018 Status: F Source: [facility] 5:46 AM [facility] TYPE CODE TESTS RESULT OUT OF REFERENCE UNITS RANGE LAB GFRAA(LOINC ml/min/1.73 ) sqm GFR >60 [place] Result Comment: GFR Population mean for , Non- Americans Ages 20-29 = 116 mL/min/1.73 sq.m. Ages 30-39 = 107 mL/min/1.73 sq.m. Ages 40-49 = 99 mL/min/1.73 sq.m. Ages 50-59 = 93 mL/min/1.73 sq.m. Ages 60-69 = 85 mL/min/1.73 sq.m. Ages 70+ = 75 mL/min/1.73 sq.m. Chronic Kidney Disease: Less than 60 mL/min/1.73 square meters End Stage Renal Disease: Less than 15 mL/min/1.73 square meters LAB GFRNO(LOINC) ml/min/1.73sqm GFR Non- >60 Result Comment: GFR Population mean for , Non- Americans Ages 20-29 = 116 mL/min/1.73 sq.m. Ages 30-39 = 107 mL/min/1.73 sq.m. Ages 40-49 = 99 mL/min/1.73 sq.m. Ages 50-59 = 93 mL/min/1.73 sq.m. Ages 60-69 = 85 mL/min/1.73 sq.m. Ages 70+ = 75 mL/min/1.73 sq.m. Chronic Kidney Disease: Less than 60 mL/min/1.73 square meters End Stage Renal Disease: Less than 15 mL/min/1.73 square meters Performed By: #### BMP, GFR #### [place] [address] XR CHEST 2 VIEWS Observed: 02/28/2018 Status: F Source: [facility] 10:27 AM [facility] REPOSITORY ORIGINAL XR CHEST 2 VIEWS CLINICAL STATEMENT: severe aortic stenosis. COMPARISON: Chest 2 views 10/27/2012 FINDINGS: The cardiomediastinal contours are normal. There is no consolidation, vascular congestion, pleural effusion, or pneumothorax. There are atherosclerotic calcifications of the aorta and its bran ches. No displaced fractures are identified. IMPRESSION: No acute radiographic findings. Interpreted By: Nakita Lang MD Preliminary Report By: Nakita Lang MD Electronically Signed By: Nakita Lang MD Dictated Date: 02/28/2018 10:44:56 AM Prelim Date: 02/28/2018 10:44:56 AM Sign Date: 02/28/2018 10:45:36 AM TABO Collected: 02/28/2018 Status: F Source: [facility] 9:28 AM [facility] REPOSITORY TYPE CODE TESTS RESULT OUT OF RANGE REFERENCE UNITS LAB ABORH(LOINC ) Unknown ABO/Rh A POS Interp Performed By: #### ABORH, ANTIS #### [place] [address] TABS Collected: 02/28/2018 Status: F Source: [facility] 9:28 AM [facility] REPOSITORY TYPE CODE TESTS RESULT OUT OF REFERENCE UNITS RANGE LAB ANST(LOINC ) Antibody Negative ABSC Screen Tango Performed By: #### ABORH, ANTIS #### [place] [address] CBC Collected: 02/28/2018 Status: F Source: [facility] 9:26 AM [facility] REPOSITORY TYPE CODE TESTS RESULT OUT OF REFERENCE UNITS RANGE LAB WBC(LOINC) 4.50-10.80 10 3/mcL WBC 6.60 LAB RBCCT(LOINC 4.10-5.30 10 6/mcL ) RBC 4.36 LAB HGB(LOINC) 12.0-16.0 G/dL Hgb 13.6 LAB HCT(LOINC) 34.0-46.0 % Hct 41.1 LAB MCV(LOINC) 80.0-99.0 fL MCV 94.4 LAB MCH(LOINC) 27.0-33.0 pg MCH 31.2 LAB MCHC(LOINC) 32.0-36.0 G/dL MCHC 33.0 LAB RDW(LOINC) 11.5-15.5 % RDW 13.9 LAB PLT(LOINC) 150-450 10 3/mcL Platelet 201 LAB MPV(LOINC) 6.6-10.5 fL MPV 7.4 Performed By: #### CBC, ADIFF, ANEU, FIB, APTT, PRO, CMP, GFR, PBNP #### [address] [address] .AUTO DIFF Collected: 02/28/2018 Status: F Source: [facility] 9:26 [facility] REPOSITORY TYPE CODE TESTS RESULT OUT OF REFERENCE UNITS RANGE LAB CA(LOINC) 50.0-75.0 % Low Neutrophil % 48.5 LAB LYM(LOINC) 20.0-40.0 % Lymphocyte % 37.5 LAB MON(LOINC) 2.0-13.0 % Monocyte % 7.9 LAB EO(LOINC) 0.0-6.0 % Eosinophil % 5.4 LAB BAS(LOINC) 0.0-2.5 % Basophil % 0.7 LAB ABLYM(LOIN 0.90-4.32 10 3/mcL C) Lymphocyte, 2.50 Absolute LAB FINN(LOINC 0.09-1.40 10 3/mcL ) Monocyte, 0.50 Absolute LAB AEOS(LOINC 0.00-0.65 10 3/mcL ) Eosinophil, 0.40 Absolute LAB ABAS(LOINC 0.00-0.27 10 3/mcL ) Basophil, 0.00 Absolute Performed By: #### CBC, ADIFF, ANEU, FIB, APTT, PRO, CMP, GFR, PBNP #### [address] [address] .NEUABS Collected: 02/28/2018 Status: F Source: [facility] 9:26 AM [facility] REPOSITORY TYPE CODE TESTS RESULT OUT OF REFERENCE UNITS RANGE LAB ANEU(LOINC) 2.25-8.10 10 3/mcL Neutrophil, 3.20 Absolute Performed By: #### CBC, ADIFF, ANEU, FIB, APTT, PRO, CMP, GFR, PBNP #### [address] [address] FIB Collected: 02/28/2018 Status: F Source: [facility] 9:26 AM [facility] REPOSITORY TYPE CODE TESTS RESULT OUT OF REFERENCE UNITS RANGE LAB FIB(LOINC) 250-550 mg/dL Fibrinogen 414 Performed By: #### CBC, ADIFF, ANEU, FIB, APTT, PRO, CMP, GFR, PBNP #### [address] [address] APTT Collected: 02/28/2018 Status: F Source: [facility] 9:26 AM [facility] REPOSITORY TYPE CODE TESTS RESULT OUT OF REFERENCE UNITS RANGE LAB PDOSE(LOIN C) Heparin dose Unknown (APTT) LAB APTT0(LOIN 25.0-35.0 seconds C) APTT 31.2 Result Comment: For Heparin anticoagulation therapy, the recommended therapeutic range is: 54-77 seconds (APTT Correlation with Anti-Xa therapeutic range of 0.3-0.7 units/ml). PLEASE REFERENCE THE PHARMACY PROTOCOL FOR DOSING. Performed By: #### CBC, ADIFF, ANEU, FIB, APTT, PRO, CMP, GFR, PBNP #### [address] [address] PRO Collected: 02/28/2018 Status: F Source: [facility] 9:26 AM [facility] REPOSITORY TYPE CODE TESTS RESULT OUT OF REFERENCE UNITS RANGE LAB PT(LOINC) 9.0-14.5 seconds Protime 10.4 Result Comment: Effective 06/15/08, Protime results may be affected by some antibiotics (i.e. Ciprofloxacin, Azithromycin, Bactrim) which may potentiate the action of oral anticoagulants, with further increases in Protime/INR. LAB INR(LOINC) ratio PT International Ratio 0.9 Result Comment: The [place] [employer] (CHEST, 1992, 102:312S-25S) recommended therapeutic range for oral anticoagulant therapy is: LOW RISK: Prophylaxis of venous thrombosis INR: 2.0-3.0 Treatment of pulmonary embolism 2.0-3.0 Prevention of systemic embolism 2.0-3.0 HIGH RISK: Mechanical prosthetic valves 2.5-3.5 Performed By: #### CBC, ADIFF, ANEU, FIB, APTT, PRO, CMP, GFR, PBNP #### [address] [address] CMP Collected: 02/28/2018 Status: F Source: [facility] 9:26 AM [facility] REPOS[facility] TYPE CODE TESTS RESULT OUT OF REFERENCE UNITS RANGE LAB GLU(LOINC) 82-115 mg/dL Glucose High Level 144 LAB NA(LOINC) 136-145 mEq/L Sodium Level 141 LAB K(LOINC) 3.5-5.0 mEq/L Potassium Level 4.7 LAB CL(LOINC) 98-110 mEq/L Chloride 106 LAB CO2(LOINC) 22-32 mEq/L CO2 27 LAB EBAL(LOINC 4.0-15.0 mEq/L ) Electrolyte Balance 8.0 LAB BUN(LOINC) 8.0-22.0 mg/dL BUN 21.0 LAB CRE(LOINC) 0.50-1.20 mg/dL Creatinine Lvl (s) 0.79 LAB BC(LOINC) 10.0-22.0 ratio High BUN/Creatinine 26.6 Ratio LAB CA(LOINC) 8.4-10.1 mg/dL Low Calcium Lvl 8.3 LAB PROT(LOINC 6.0-8.5 G/dL ) Total Protein 7.2 LAB ALB(LOINC) 3.2-4.8 G/dL Albumin Level 3.8 LAB GLB(LOINC) 1.5-3.8 G/dL Globulin 3.4 LAB AG(LOINC) 0.9-1.6 ratio A/G Ratio 1.1 LAB BILT(LOINC 0.2-1.2 mg/dL ) Bili Total 0.6 LAB AP(LOINC) 38-126 U/L Alk Phos 77 LAB AST(LOINC) 8-34 U/L AST/SGOT 16 LAB ALT(LOINC) 10-49 U/L ALT/SGPT 20 Performed By: #### CBC, ADIFF, ANEU, FIB, APTT, PRO, CMP, GFR, PBNP #### [address] [address] .GFR Collected: 02/28/2018 Status: F Source: [facility] 9:26 AM [facility] REPOSITORY TYPE CODE TESTS RESULT OUT OF REFERENCE UNITS RANGE LAB GFRAA(LOINC ml/min/1.73 ) sqm GFR >60 [place] Result Comment: GFR Population mean for , Non- Americans Ages 20-29 = 116 mL/min/1.73 sq.m. Ages 30-39 = 107 mL/min/1.73 sq.m. Ages 40-49 = 99 mL/min/1.73 sq.m. Ages 50-59 = 93 mL/min/1.73 sq.m. Ages 60-69 = 85 mL/min/1.73 sq.m. Ages 70+ = 75 mL/min/1.73 sq.m. Chronic Kidney Disease: Less than 60 mL/min/1.73 square meters End Stage Renal Disease: Less than 15 mL/min/1.73 square meters LAB GFRNO(LOINC) ml/min/1.73sqm GFR Non- >60 Result Comment: GFR Population mean for , Non- Americans Ages 20-29 = 116 mL/min/1.73 sq.m. Ages 30-39 = 107 mL/min/1.73 sq.m. Ages 40-49 = 99 mL/min/1.73 sq.m. Ages 50-59 = 93 mL/min/1.73 sq.m. Ages 60-69 = 85 mL/min/1.73 sq.m. Ages 70+ = 75 mL/min/1.73 sq.m. Chronic Kidney Disease: Less than 60 mL/min/1.73 square meters End Stage Renal Disease: Less than 15 mL/min/1.73 square meters Performed By: #### CBC, ADIFF, ANEU, FIB, APTT, PRO, CMP, GFR, PBNP #### [place] [address] PBNP Collected: 02/28/2018 Status: F Source: [facility] 9:26 AM [facility] REPOSITORY TYPE CODE TESTS RESULT OUT OF REFERENCE UNITS RANGE LAB PBNP(LOINC) 0-900 pg/mL N-Terminal 201 proBNP Result Comment: NT-proBNP results of less than 300 pg/mL effectively rules out acute congestive heart failure with 99% negative predictive value. Performed By: #### CBC, ADIFF, ANEU, FIB, APTT, PRO, CMP, GFR, PBNP #### [address] [address] UA Collected: 02/28/2018 Status: F Source: [facility] 9:26 AM [facility] REPOSITORY TYPE CODE TESTS RESULT OUT OF RANGE REFERENCE UNITS LAB SPCUA(PER[place] NC) UA Specimen Type Void LAB CLRUA([place] NC) UA Color Yellow LAB APPUA([place] Clear NC) UA Appear Abnormal Hazy LAB SGUA(LOIN 1.006-1.029 C) UA Spec Grav 1.015 LAB GLUA(LOIN Negative mg/dL C) UA Glucose Negative LAB BILUA([place] Neg-Trace NC) UA Bili Negative LAB KETUA([place] Neg-Trace mg/dL NC) UA Ketones Negative LAB BLDUA([place] Neg-Trace NC) UA Blood Negative LAB PHUA(LOIN 5.0 - 8.0 C) UA pH 5.0 LAB PROUA([place] Negative mg/dL NC) UA Protein Negative LAB UROUA([place] 0.2-1.0 E.U./dL NC) UA Urobilinogen 0.2 LAB NITUA([place] Negative NC) UA Nitrite Negative LAB LEUUA([place] Negative NC) UA Leuk Est Abnormal Small Performed By: #### UA, UAMIC #### [place] [address] UAMIC Collected: 02/28/2018 Status: F Source: [facility] 9:26 AM [facility] REPOSITORY TYPE CODE TESTS RESULT OUT OF RANGE REFERENCE UNITS LAB RBCUA(LOIN 0-2 /hpf C) UA RBC Negative LAB WBCUA(LOIN 0-5 /hpf C) UA Abnormal WBC 25-50 LAB EPIUA(LOIN 0-20 /hpf C) UA Abnormal Squam 25-50 Epithelial LAB MUCUA(LOIN /hpf C) UA Mucous 2+ LAB BACUA(LOIN Negative /hpf C) UA Abnormal Bacteria 1+ Performed By: #### UA, UAMIC #### [place] [id number] CT ANGIOGRAPHY TAVR Observed: 02/19/2018 Status: C Source: [facility] 10:30 AM [facility] REPOSITORY ADDENDUM Addendum report, CT angiography TAPVR planning, 02/19/2018 There is an error in the original report, likely a voice recognition error. Left common femoral artery shows luminal diameter 7.7 mm, not 0.7 mm. Interpreted By: Ramses Cho MD Preliminary Report By: Ramses Cho MD Electronically Signed By: Ramses Cho MD Dictated Date: 02/20/2018 10:01:49 AM Prelim Date: 02/20/2018 10:02:47 AM Sign Date: 02/20/2018 10:02:[address] ANGIOGRAPHY TAVR PLANNING (CT OF THE CHEST WITHOUT CONTRAST, CT OF THE HEART WITH CONTRAST FOR EVALUATION OF STRUCTURE AND FUNCTION, CTA OF THE CHEST, CTA OF THE ABDOMEN AND PELVIS), including 3-D re construction postprocessing, 02/19/2018. TECHNIQUE: A noncontrast CT chest was obtained. The patient was then given intravenous contrast and a CT of the heart and CTA of the chest, abdomen and pelvis was obtained. 0.625 mm images were obtained and 3-dimensional reconstructions were generated on a separate workstation. This exam was performed according to our departmental dose-optimization program which includes automated exposure control, ad justment of the mA and/or kV according to patient size and/or use of iterative reconstruction technique where applicable. The heart rate during the scan there is focal 53-58 with average of 56 beats per minute and the scan was reconstructed at 35 percent of the RR interval. 273-345: 20mm 338-430: 23mm 430-546: 26mm 540-683: 29mm CLINICAL STATEMENT: Severe aortic stenosis COMPARISON: None MEDICATIONS: None FINDINGS: Specific measurements for assessment for TAVR placement are as follows (lumen measured as the narrowest point of the artery): Aortic annulus diameter: 27.9 x 22.1 mm Aortic annulus area: 457 mm squared Distance of the left main to annulus: 11.8 mm Distance of the RCA to annulus: 12.4 mm Aortic annulus perimeter: 78 mm Sinotubular junction diameter: 29.8 x 28.2 mm Left ventricular outflow tract diameter: 26.3 x 22.1 mm Right sinus to cusp: 31.3 mm Left sinus to cusp: 31.9 mm Noncoronary sinus to cusp: 30.9 mm The aortic valve angle is: BARAJAS 7, CAU 19 Right common iliac artery: 10.3 mm Right external iliac artery: 7.2 mm Right common femoral artery: 7.4 mm Left common iliac artery: 9.5 mm with about 180 degrees of calcification around perimeter Left external iliac artery: 7.5 mm Left common femoral artery: 0.7 mm Proximal right subclavian 13.6 x 15.1 mm Mid right subclavian 10 x 11.2 mm Distal right subclavian 5.5 x 6.5 mm Proximal right axillary 5.9 x 7.7 mm Proximal left subclavian 11.9 x 13.4 mm Mid left subclavian 5.8 x 7.5 mm Distal left subclavian 5.3 x 6.2 mm Proximal left axillary 6.5 x 9 mm MAJOR VASCULAR FINDINGS: Aortic valve trileaflet with moderate calcification. There are calcifications in the proximal LAD and circumflex coronary arteries. Thoracic aorta is relatively normal in caliber. 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 The left and right common caroti d arteries arise off the arch in usual fashion. Both visualized proximal common carotid arteries are patent. Vertebral arteries are patent arising from subclavian arteries, left is dominant. There is no thoracic aortic dissection, penetrating ulcer or other acute thoracic aortic abnormality. Heart is mildly dilated without pericardial fluid. Diameter of main pulmonary outflow tract and right main pulm onary artery considered prominent with luminal diameter in the pulmonary outflow tract 42 mm compared to diameter in ascending thoracic aorta 37 mm. Pulmonary artery hypertension is therefore suspected. Left atrium and left atrial appendage appear normal. There is faint calcification and mitral annulus. Outside diameter abdominal aorta at level of celiac axis origin 27 mm. The celiac trunk and major branches, SMA and its major branches, single bilateral renal arteries and WILMA are patent. Infrarenal aor ta tapers distally in a normal fashion. There is moderate multifocal calcification throughout infrarenal aorta. Both common iliac arteries contain mild to moderate calcium without stenosis. Both interna l iliac arteries are patent. Bilateral external iliac arteries normal. Bilateral common femoral arteries and their bifurcations appear normal. NONVASCULAR FINDINGS: CHEST: Mild linear scarring is present in peripheral right lower lobe. There is no airspace infiltrate, lung mass or significant nodule. ABDOMEN AND PELVIS: Postsurgical change of stomach. 2.8 cm left superior pole renal cyst. 4.7 cm left lateral inferior pole renal cyst. There are multiple cysts in the right kidney, largest in posterior lower pole measures 4.3 cm. Smallest in superior medial pole measures 10 mm. Remaining solid and visceral abdominal organs show no acute abnormality. No retroperitoneal adenopathy, intraperitoneal air or fluid. There are pedicle bolts and posterior stabilization rods at L5-S1 level. There is mild forward offset L5 on S1 and degenerative disc disease at lumbar sacral junction as well as multiple other upper lumbar levels. Urinary bladder is adequately distended. Uterus and ovaries are not distinctly visualized. Bowel loops are not abnormally distended. Appendix normal. There are multiple small fatty anterior midline ventral hernias. IMPRESSION: Trileaflet aortic valve with moderate calcification affecting all leaflets. TAVR measurements as described. Incidental findings as described. Interpreted By: Ramses Cho MD Preliminary Report By: Ramses Cho MD Electronically Signed By: Ramses Cho MD Dictated Date: 02/19/2018 2:00:22 PM Prelim Date: 02/19/2018 2:00:22 PM Sign Date: 02/19/2018 2:21:00 PM CV ECHO COMPLETE Observed: 02/13/2018 Status: F Source: [facility] 10:12 AM [place] [id number] Patient: JONATHAN QUINTANILLA Phone#: : [phone] Age: 72 Gender: F Pt. Type: Out Account: [id number] Location: Ordering: [facility] Exam Date: 02/13/2018/9:02 Family Phys: RAUDEL MARQUEZ Charge Code: [id number] Physician: [place] Order #: [id number] Dose#: PROCEDURE: ECHOCARDIOGRAM WITH DOPPLER AND COLOR FLOW HISTORY: 72-year-old female with history of hypertension, diabetes and aortic stenosis INDICATIONS: Aortic stenosis TECHNIQUE: A 2-D ultrasound, color spectral Doppler and M-mode evaluation of the heart and great vessels. PATIENT MEASUREMENTS: Height (in.): 66 BSA: 2.0 Weight (lbs.): 200 BP: 120/65 Drop Pit Worker: CARLIE M MODE 2D MEASUREMENTS AND CALCULATIONS: LVIDd: 5.70 cm LVIDs: 3.05 cm IVSd: 1.38 cm LVPWd: 1.60 cm LVOT diam: 2.03 cm FS: 46.44 % Ao Root diam: 2.89 cm LA diam: 5.77 cm LA Volume Index: 39.4 mL/m2 LA A4 Area: 24.08 cm2 RA A4 Area: 14.2 cm2 RVDd: 2.41 cm TAPSE: 25 mm DOPPLER MEASUREMENTS AND CALCULATIONS MITRAL MV E MAX bobby: 120.15 cm/s MV A MAX bobby: 117.45 cm/s MV E-A ratio: 1.02 Lat Peak E' Bobby 10 cm/s Continued Report - Page 2 of 3 Patient: JONATHAN QUINTANILLA Phone#: : 1945 Age: 72 Gender: F Pt. Type: Out Account: [id number] Location: Ordering: LELE PASCAL Exam Date: 02/13/2018/9:02 Family Phys: RAUDEL MARQUEZ Charge Code: [id number] Physician: [place] Order #: [id number] DLP Dose#: Septal Peak E' BOBBY 4 cm/s Lateral E./E.' 11.5 Medial E./E.' 34.2 AORTIC Ao V2 max: 364.39 cm/s Ao max P.14 mm[Hg] Ao V2 mean: 274.13 cm/s Ao mean P.07 mm[Hg] Ao V2 VTI: 92.43 cm TOMA (V Max): 1.02 cm2 TOMA (VTI): 1.06 cm2 AI max bobby 378.58 cm/s AI max PG 57.39 mm[Hg] AI dec Bourbon 222.15 cm/s2 AI PHT 503.59 ms LV V1 Max 114.37 cm/s LV V1 Max PG 5.37 mm[Hg] LV V1 Mean PG 2.87 mm[Hg] LV V1 mean 79.88 cm/s LV V1 VTI 30.29 cm PULMONIC PA V2 Max 111.47 cm/s PA Max PG 4.97 mm[Hg] TRICUSPID TR Max Bobby 226.37 cm/s TR max PG 20.65 mm[Hg] RVSP 24 mmHg 2D/M-MODE AND COLOR FLOW LEFT VENTRICLE: Moderate concentric left ventricle hypertrophy. Normal wall motion and systolic function, ejection fraction 55%. Grade 2 diastolic dysfunction with elevated left atrial pressure. WALL MOTION: 1 - Basal anterior: Normal. 7 - Mid anterior: Normal. 13 - Apical anterior: Normal. 2 - Basal anteroseptal: Normal. 8 - Mid anteroseptal: Normal. 14 - Apical septal: Normal. 3 - Basal inferoseptal: Normal. 9 - Mid inferoseptal: Normal. 15 - Apical inferior: Normal. 4 - Basal inferior: Normal. 10-Mid inferior: Normal. 16 - Apical lateral: Normal. 5 - Basal inferolateral: Normal. 11-Mid inferolateral: Normal. 6 - Basal anterolateral: Normal. 12-Mid anterolateral: Normal. RIGHT VENTRICLE: Normal size and systolic function. Prominent moderator band noted. LEFT ATRIUM: Mildly dilated Continued Report - Page 3 of 3 Patient: JONATHAN QUINTANILLA Phone#: : 1945 Age: 72 Gender: F Pt. Type: Out Account: [id number] Location: Ordering: [facility] Exam Date: 02/13/2018/9:02 Family Phys: RAUDEL MARQUEZ Charge Code: [id number] Physician: [place] Order #: [id number] DLP Dose#: RIGHT ATRIUM: Normal MITRAL VALVE: Mild mitral annular calcification with focal papillary muscle/subvalvular calcification. Mild mitral regurgitation. TRICUSPID VALVE: Normal leaflet structure and mobility. Mild tricuspid regurgitation. AORTIC VALVE: Trileaflet aortic valve with moderate diffuse thickening, calcification and restricted mobility. Moderate calcific aortic stenosis with peak the of 3.65 m/s, peak gradient 53 mmHg, mean gradient 33 mmHg and calculated aortic valve area of 1.1 cm2. Mild to moderate aortic insufficiency. PULMONIC VALVE: Normal in structure and mobility. Trace pulmonic insufficiency. AORTIC ROOT: Normal size and mildly calcified IVC/SVC: Normal size and normal respirophasic response PERICARDIUM: No significant pericardial effusion. Prominent fat pad noted CONCLUSION: 1. Moderate concentric left ventricle hypertrophy with normal wall motion and systolic function, ejection fraction 55%. 2. Normal right ventricle size and systolic function. 3. Mildly dilated left atrium. 4. Mild mitral annular calcification with mild mitral regurgitation. 5. Mild tricuspid regurgitation. 6. Moderate calcific aortic stenosis with peak the of 3.65 m/s, peak gradient 53 mmHg, mean gradient 33 mmHg and calculated aortic valve area of 1.1 cm2. Mild to moderate aortic insufficiency. 7. Grade 2 diastolic dysfunction with elevated left atrial pressure. 8. RVSP estimated to be 24 mmHg. 9. As compared to the last study report of , the peak transvalvular aortic velocity has increased from 3.5 m/s to 3.65 m/s. Dictated by: LELE PASCAL on 02/13/2018 at 11:23 Approved by: LELE PASCAL on 02/13/2018 at 11:23 MAMM DIGITAL BILAT Observed: 02/11/2018 Status: F Source: [employer] SCREEN 9:28 AM [place] [address] Patient: JONATHAN QUINTANILLA Phone#: : 1945 Age: 72 Gender: F Pt. Type: Out Account: [id number] Location: Ordering: RAUDEL MARQUEZ Exam Date: 02/11/2018/9:21 Family Phys: LELE PASCAL Charge Code: [id number] Physician: [place] Order #: [id number] DLP Dose#: PROCEDURE: MAMM BILAT DIGITAL SCREENING WITH CAD COMPARISON: [facility], BILAT SCREENING, 08/01/2015, 11:15. [facility], BILAT SCREENING, 10/23/2016, 14:33. INDICATIONS: Screening BREAST COMPOSITION: Almost entirely fat (<25% glandular). FINDINGS: DIAGNOSTIC CATEGORY 1--NEGATIVE ASSESSMENT. RIGHT BREAST: No significant suspicious finding. No significant change has occurred. LEFT BREAST: No significant suspicious finding. No significant change has occurred. RECOMMENDATIONS: ROUTINE MAMMOGRAM AND CLINICAL EVALUATION. PLEASE NOTE: A NORMAL MAMMOGRAM DOES NOT EXCLUDE THE POSSIBILITY OF BREAST CANCER. A CLINICALLY SUSPICIOUS PALPABLE LUMP SHOULD BE BIOPSIED. THIS FACILITY UTILIZES A REMINDER SYSTEM TO ENSURE THAT ALL PATIENTS RECEIVE REMINDER LETTERS FOR APPOINTMENTS. THIS INCLUDES REMINDERS FOR ROUTINE MAMMOGRAMS, DIAGNOSITC MAMMOGRAMS, OR OTHER BREAST IMAGING INTERVENTIONS WHEN APPROPRIATE. THIS PATIENT WILL BE PLACED IN THE APPROPRIATE REMINDER SYSTEM. Dictated by: Renée Elizabeth MD on 02/11/2018 at 9:44 Approved by: Renée Elizabeth MD on 02/11/2018 at 9:44 BMP Collected: 02/07/2018 Status: F Source: [facility] 6:29 AM [facility] REPOSITORY TYPE CODE TESTS RESULT OUT OF REFERENCE UNITS RANGE LAB GLU(LOINC) 82-115 mg/dL Glucose High Level 143 LAB NA(LOINC) 136-145 mEq/L Sodium Level 143 LAB K(LOINC) 3.5-5.0 mEq/L Potassium Level 3.8 LAB CL(LOINC) 98-110 mEq/L Chloride 107 LAB CO2(LOINC) 22-32 mEq/L CO2 30 LAB EBAL(LOINC 4.0-15.0 mEq/L ) Electrolyte Balance 6.0 LAB BUN(LOINC) 8.0-22.0 mg/dL BUN High 26.0 LAB CRE(LOINC) 0.50-1.20 mg/dL Creatinine Lvl (s) 0.73 LAB BC(LOINC) 10.0-22.0 ratio High BUN/Creatinine 35.6 Ratio LAB CA(LOINC) 8.4-10.1 mg/dL Low Calcium Lvl 8.3 Performed By: #### BMP, GFR #### [place] [address] .GFR Collected: 02/07/2018 Status: F Source: [facility] 6:29 AM [facility] REPOSITORY TYPE CODE TESTS RESULT OUT OF REFERENCE UNITS RANGE LAB GFRAA(LOINC ml/min/1.73 ) sqm GFR >60 [place] Result Comment: GFR Population mean for , Non- Americans Ages 20-29 = 116 mL/min/1.73 sq.m. Ages 30-39 = 107 mL/min/1.73 sq.m. Ages 40-49 = 99 mL/min/1.73 sq.m. Ages 50-59 = 93 mL/min/1.73 sq.m. Ages 60-69 = 85 mL/min/1.73 sq.m. Ages 70+ = 75 mL/min/1.73 sq.m. Chronic Kidney Disease: Less than 60 mL/min/1.73 square meters End Stage Renal Disease: Less than 15 mL/min/1.73 square meters LAB GFRNO(LOINC) ml/min/1.73sqm GFR Non- >60 Result Comment: GFR Population mean for , Non- Americans Ages 20-29 = 116 mL/min/1.73 sq.m. Ages 30-39 = 107 mL/min/1.73 sq.m. Ages 40-49 = 99 mL/min/1.73 sq.m. Ages 50-59 = 93 mL/min/1.73 sq.m. Ages 60-69 = 85 mL/min/1.73 sq.m. Ages 70+ = 75 mL/min/1.73 sq.m. Chronic Kidney Disease: Less than 60 mL/min/1.73 square meters End Stage Renal Disease: Less than 15 mL/min/1.73 square meters Performed By: #### BMP, GFR #### [place] [address] CBC Collected: 01/30/2018 Status: F Source: RAKESH GOMEZ 3:20 PM [facility] REPOSITORY TYPE CODE TESTS RESULT OUT OF RANGE REFERENCE UNITS LAB CBC(LOINC) CBC Result Comment: CBC-COMPLETE BLOOD COUNT LAB WBC(LOINC) 4.5 - 10.8 x 10EE3/UL WBC 9.9 LAB RBC(LOINC) 4.10 - x 10EE6/UL 5.30 RBC 4.35 LAB HEMOGLOBIN(LOINC) 12.0 - g/dl 16.0 HEMOGLOBIN 13.8 LAB HEMATOCRIT(LOINC) 34.0 - % 46.0 HEMATOCRIT 41.1 LAB MCV(LOINC) 80 - 99 fl MCV 95 LAB MCH(LOINC) 27 - 33 pg MCH 32 LAB MCHC(LOINC) 32 - 36 X10 3 MCHC 34 LAB RDW/CV(LOINC) 12.0 - % 15.6 RDW/CV 14.0 LAB PLATELET(LOINC) 150 - 450 x10EE3/UL PLATELET 217 LAB MPV(LOINC) 6.6 - 10.5 fl MPV 7.8 Result Comment: AUTOMATED DIFFERENTIAL LAB NEUT %(LOINC) 46.0 - 76.0 % NEUT % 52.5 LAB LYMPH %(LOINC) 20.0 - 45.0 % LYMPH % 37.3 LAB MONOS %(LOINC) 0.0 - 10.0 % MONOS % 6.7 LAB EO %(LOINC) 0.0 - 7.0 % EO % 2.8 LAB BASO %(LOINC) 0.0 - 2.0 % BASO % 0.7 LAB Lymph #(LOINC) 0.80 - 2.80 x10EE3/U L Lymph # High 3.70 LAB Neut #(LOINC) 1.50 - 7.10 x10EE3/U L Neut # 5.20 LAB [place] #(LOINC) 0.20 - 1.00 x10EE3/U L [place] # 0.70 LAB EO #(LOINC) 0.00 - 0.50 x10EE3/U L EO # 0.30 LAB Baso #(LOINC) 0.00 - 0.10 x10EE3/U L Baso # 0.10 LAB MANUAL DIFF(LOINC) MANUAL DIFF N/A LAB MORPHOLOGY(LOINC ) MORPHOLOGY N/A Result Comment: {CD] Performed By: #### [id number] #### [place] [address] PROTHROMBIN TIME AND Collected: 01/30/2018 Status: F Source: [facility] INR 3:20 PM [facility] REPOSITORY TYPE CODE TESTS RESULT OUT OF REFERENCE UNITS RANGE LAB PROTHROMBIN TIME AND INR(LOINC) PROTHROMBIN TIME AND INR Result Comment: PROTHROMBIN TIME AND INR LAB PT-COUMADIN(LOINC) sec PT-COUMADIN 11.5 LAB INR(LOINC) 0.8 - 1.2 INR 1.0 Result Comment: THE HEMOSIL THROMBOPLASTIN REAGENT USED IN THE PROTHROMBIN TIME TEST INTERACTS WITH THE DRUG CUBICIN (DAPTOMYCIN) AND WILL RESULT IN FALSELY ELEVATED PT / INR RESULTS INR INTERPRETATION INR INDICATION PREVENTION AND TREATMENT OF THROMBOEMBOLISM ASSOCIATED WITH: 2.0 - 3.0 ATRIAL FIBRILLATION, BIOPROSTHETIC HEART VALVES, PULMONARY EMBOLISM, VENOUS THROMBOSIS, SYSTEMIC EMBOLISM POST MYOCARDIAL INFARCTION 2.5 - 3.5 MECHANICAL HEART VALVES Performed By: #### [id number] #### [place] [address] BMP WITH EGFR Collected: 01/30/2018 Status: F [facility] REPOSITORY TYPE CODE TESTS RESULT OUT OF RANGE REFERENCE UNITS LAB BMP with eGFR(LOINC) BMP with eGFR Result Comment: BASIC METABOLIC PANEL LAB SODIUM(LOINC) 136 - 145 mmol/l SODIUM 141 LAB POTASSIUM(LOINC) 3.5 - 5.1 mmol/L POTASSIUM 3.8 LAB CHLORIDE(LOINC) 98 - 107 mmol/L CHLORIDE 106 LAB CO2(LOINC) 21.0 - mmol/L 31.0 CO2 25.0 LAB GLUCOSE(LOINC) 74 - 106 mg/dl GLUCOSE High 131 LAB BUN(LOINC) 6 - 20 mg/dl BUN High 22 LAB CREATININE(LOINC) 0.6 - 1.2 mg/dl CREATININE 0.8 LAB CALCIUM(LOINC) 8.6 - mg/dl 10.2 CALCIUM 8.9 LAB ANION GAP(LOINC) 10 - 20 mmol/L ANION GAP 14 LAB AGE(LOINC) years AGE 72 LAB eGFR(LOINC) 60 - 999 ML/MINUTE eGFR >60 LAB eGFR(AA)(LOINC) 60 - 999 ML/MINUTE eGFR(AA) >60 Result Comment: ACCORDING TO THE NATIONAL KIDNEY DISEASE EDUCATION PROGRAM(NKDE), A NORMAL eGFR IS A VALUE GREATER THAN OR EQUAL TO 60 ML/MIN/1.73 SQ METERS. CHRONIC KIDNEY DISEASE: <60mL/MIN/1.73 SQ METERS KIDNEY FAILURE: <15mL/MIN/1.73 SQ METERS THIS TEST SHOULD ONLY BE USED FOR PATIENTS 18 YEARS OF AGE AND OLDER. Performed By: #### [id number] #### Rakesh [facility],[address] [place], [place] [id number] DISCHARGE SUMMARY Observed: 12/30/2017 Status: F Source: NAZARETH 7:40 AM [facility] Medical Records Department [address] [place], [place] [id number] Discharge Summary 12/30/17 0738 MR#: [id number] Acct: [id number] Name: JONATHAN QUINTANILLA Rep #: [id number] : 1945 72 From: Bipin Murray MD PCP: Raudel Marquez Status: DIS IN Y Location: [place] [id number] Discharge Date and Diagnosis Date of Admission: 12/27/17 Date of Discharge: 12/29/17 - Secondary Discharge Diagnosis Chronic Problems Aortic stenosis (Chronic) Last valve area 0.95 cm Hypertension (Chronic) Depression (Chronic) Hospital Course and Treatment Operations: - - Sling and TURBT Procedures: None Summary of Care Provided: The patient is a 72 year old female with critical aortic aortic stenosis underwent a sling placement and transurethral resection of a small bladder tumor postoperatively she developed immediate pulmonary edema and congestive heart failure had to be diuresed was in the ICU overnight on BiPAP finally was back to normal oxygenation and was discharged home after she was able to urinate. Discharge Diet: Light diet - advance as tolerated Discharge Activity: Return to Normal Activity Call your doctor if your incision/area has: Continuous Slow Oozing, Sudden Increased Bleeding, Increased Pain/ Swelling, Increased Redness, Foul Smelling Discharge, Swelling at the incision site Home Medications: Medications to take at Discharge Ascorbic Acid [Vitamin C] 1,000 mg PO BID 10/30/17 Biotin 5,000 mcg PO QHS 10/30/17 Chromium Picolinate 1,000 mcg PO BID 10/30/17 Cinnamon Bark [Cinnamon] 1,000 mg PO BID 10/30/17 Copper Gluconate [Copper] 2 mg PO DAILY 10/30/17 Cyanocobalamin (Vitamin B-12) [Vitamin B-12] 500 mcg PO BID 10/30/17 Folic Acid 1 mg PO DAILY@0800 10/30/17 Gabapentin [Neurontin] 300 mg PO TID 10/30/17 Gluc/Elmo-MSM#1/C/Rahul/Alex/Bor [Osteo Bi-Flex Caplet] 2 each PO DAILY 10/30/17 Kelp 600 mcg PO BID 10/30/17 Krill Oil 1,000 mg PO DAILY 10/30/17 Levothyroxine [Synthroid] 175 mcg PO DAILY 10/30/17 Lovastatin [Mevacor] 20 mg PO DAILY 10/30/17 Lutein 20 mg PO DAILY 10/30/17 Metformin HCl [Metformin HCl ER] 500 mg PO BID 10/30/17 Paroxetine HCl [Paxil] 30 mg PO DAILY 10/30/17 Vits [Prenatabs FA ] 2 tablet PO DAILY 10/30/17 Pyridoxine HCl [Vitamin B-6] 100 mg PO BID 10/30/17 Ubidecarenone [Coq10] 200 mg PO DAILY 10/30/17 Docusate Sodium [Colace] 100 mg PO BID PRN PRN #60 cap 11/04/17 Furosemide [Lasix] 20 mg PO DAILY #30 tab 11/06/17 Calcium Carbonate/Vitamin D3 [Calcium 500-Vit D3 600 Tablet] 1,200 mg PO DAILY 12/20/17 Ciprofloxacin [Cipro] 500 mg PO BID #6 tab 12/27/17 Hydrocodone/Acetaminophen [[place] 5-325 Tablet] 1 ea PO Q4H PRN PRN #14 tab 12/27/17 Following Prescrptions Were Given to Patient: Hydrocodone/Acetaminophen [[place] 5-325 Tablet] 1 ea PO Q4H PRN PRN #14 tab PRN Reason: Pain Ciprofloxacin [Cipro] 500 mg PO BID #6 tab Primary Care Physician: Raudel Marquez [Primary Care Provider] - Please Follow Up With: Bipin Murray MD When: Appt SaturdayJan 07 at 10:15 am. Patient Instructions: Treating Bladder Cancer: TUR (Transurethral Resection) Meaningful Use Info Meaningful Use Diagnoses (Choose all that apply): None applicable 12/30/17 0740 <Electronically signed by Bipin Murray MD> Date Bipin Murray MD Cosigner Signature (if applicable): Date CC: Bipin Murray MD; Raudel Marquez Signed BEDSIDE GLUCOSE Collected: 12/29/2017 Status: F Source: [place] 11:27 AM [facility] [place] TYPE CODE TESTS RESULT OUT OF REFERENCE UNITS RANGE LAB L501.080 70-110 mg/dL High BEDSIDE GLU 115 Result Comment: MANAGEMENT OF PATIENT CARE PER NURSING PROTOCOL Performed By: #### L501.080 #### [place] [facility] Point of Care [address] [place] [address] BEDSIDE GLUCOSE Collected: 12/29/2017 Status: F Source: [place] 6:46 AM [facility] [place] TYPE CODE TESTS RESULT OUT OF REFERENCE UNITS RANGE LAB L501.080 70-110 mg/dL High BEDSIDE GLU 150 Result Comment: MANAGEMENT OF PATIENT CARE PER NURSING PROTOCOL Performed By: #### L501.080 #### [facility] Point of Care [address] [place], [place] [id number] BASIC METABOLIC Collected: 12/29/2017 Status: F Source: [place] PROFILE (BMP) 5:36 AM [facility] TYPE CODE TESTS RESULT OUT OF RANGE REFERENCE UNITS LAB L501.0100 70-110 mg/dL High GLU 140 Result Comment: Fasting Glucose result greater than or equal to 126 mg/dL suggests DIABETES MELLITUS per A.D.A. criteria. LAB L501.1000 7-18 mg/dL High BUN 20 LAB L501.1100 0.55-1.02 mg/dL Normal CREAT,SERUM 0.69 Result Comment: The validity of the calculated GFR AND GFRAA in patients over 70 years has not been determined. Clinical correlation is essential. LAB L501.1110 >60 mL/min Normal EST GFR 88 Result Comment: Non- GFR Calc LAB L501.1115 >60 mL/min Normal EST GFR - AA 107 Result Comment: GFR Calc LAB L501.1255 ml/min Normal Estimated CRCL 46.90 LAB L501.1300 10-20 RATIO High BUN/CRE 28.9 LAB L501.2200 8.5-10 mg/dL Normal .1 CA 8.6 LAB L501.5300 136-14 mmol/L Normal 5 NA 140 LAB L501.5600 3.5-5. mmol/L Normal 1 K 4.0 LAB L501.5900 98-107 mmol/L Normal CL 104 LAB L501.6100 21.0-3 mmol/L Normal 2.0 CO2 27.0 LAB L501.6200 5-15 Normal GAP 9 Performed By: #### L500.2500 #### [facility] [address] [place], [place], [id number] BEDSIDE GLUCOSE Collected: 12/28/2017 Status: F Source: [place] 10:23 PM [facility] TYPE CODE TESTS RESULT OUT OF REFERENCE UNITS RANGE LAB L501.080 70-110 mg/dL High BEDSIDE GLU 148 Result Comment: MANAGEMENT OF PATIENT CARE PER NURSING PROTOCOL Performed By: #### L501.080 #### [facility] Point of Care [address] [place] [address] BEDSIDE GLUCOSE Collected: 12/28/2017 Status: F Source: [place] 4:14 PM [facility] TYPE CODE TESTS RESULT OUT OF REFERENCE UNITS RANGE LAB L501.080 70-110 mg/dL High BEDSIDE GLU 162 Result Comment: MANAGEMENT OF PATIENT CARE PER NURSING PROTOCOL Performed By: #### L501.080 #### [facility] Point of Care [address] [place] [address] BEDSIDE GLUCOSE Collected: 12/28/2017 Status: F Source: [place] 12:41 PM [facility] TYPE CODE TESTS RESULT OUT OF REFERENCE UNITS RANGE LAB L501.080 70-110 mg/dL High BEDSIDE GLU 168 Result Comment: Dr Orders Followed Insulin Given MANAGEMENT OF PATIENT CARE PER NURSING PROTOCOL Performed By: #### L501.080 #### [facility] Point of Care [address] [place] [address] BEDSIDE GLUCOSE Collected: 12/28/2017 Status: F Source: [place] 6:13 AM [facility] TYPE CODE TESTS RESULT OUT OF REFERENCE UNITS RANGE LAB L501.080 70-110 mg/dL High BEDSIDE GLU 157 Result Comment: MANAGEMENT OF PATIENT CARE PER NURSING PROTOCOL Performed By: #### L501.080 #### [facility] Point of Care [address] [place] [address] CONSULTATION Observed: 12/28/2017 Status: F Source: [place] 4:24 AM [facility] Medical Records Department [address] [place] [address] Consultation 12/27/17 1022 MR#: [id number] Acct: [id number] Name: JONATHAN QUINTANILLA Rep #: [id number] : 1945 72 From: Jas Calderon MD PCP: Raudel Marquez Status: REG FLC Y Location: ICU ICU09-1 Problem List (1) Postoperative hypoxia Status: Acute (2) Aortic stenosis Status: Chronic Qualifiers: Cardiac valve disease etiology: etiology unspecified Qualified Code(s): I35.0 - Nonrheumatic aortic (valve) stenosis Comment: Last valve area 0.95 cm (3) Type 2 diabetes mellitus Status: Acute Qualifiers: Diabetes mellitus complication status: with unspecified complications Diabetes mellitus custodial insulin use: without custodial use Qualified Code(s): E11.8 - Type 2 diabetes mellitus with unspecified complications (4) Hypothyroidism Status: Acute Qualifiers: Hypothyroidism type: unspecified Qualified Code(s): E03.9 - Hypothyroidism, unspecified (5) Hypertension Status: Chronic Qualifiers: Hypertension type: essential hypertension Qualified Code(s): I10 - Essential (primary) hypertension (6) Depression Status: Chronic Qualifiers: Depression Type: unspecified Qualified Code(s): F32.9 - Major depressive disorder, single episode, unspecified (7) Bladder cancer Status: Acute Qualifiers: Bladder location: lateral wall Qualified Code(s): C67.2 - Malignant neoplasm of lateral wall of bladder (8) ÁNGEL (stress urinary incontinence, female) Status: Acute Reason for Consult Date of Consultation: 12/27/17 Reason for Consultation: Acute hypoxic respiratory failure History of Present Illness: The patient is a 72 year old F, with past medical history listed below, who presented to [facility] on 12/27/2017 for elective cystoscopy with transurethral resection of bladder tumor and tension-free vaginal sling. Patient reportedly had had difficulty with previous operations, so general anesthesia was selected. Documentation of fluids for bladder irrigation and IV administration are not available at this time. Patient reportedly tolerated the procedure well, however in PACU became significantly short of breath and hypoxic following extubation. Patient was placed on BiPAP therapy at 100% FiO2, given IV Lasix and transferred to the intensive care unit for further monitoring. Patient denies any history of previous lung pathology. Prior to surgery, patient was noted to be 98% on room air, without tachycardia, hypotension or fever. Patient is denying any pain at this time. Patient denies any prodromal respiratory symptoms such as cough, fever, chills or chest pain prior to the surgery. Patient does not typically use a BiPAP at home. Patient denies any dyspnea, syncope or chest pain on exertion at baseline. Patient is unable to provide a significant amount of additional information, but does report an increased cough following the surgery. Patient did have a Iraheta placed at the request of urology. Patient has not had any hemodynamic instability reported. Past Medical History Past Medical History (Chronic Problems): Chronic Problems Aortic stenosis (Chronic) Last valve area 0.95 cm Hypertension (Chronic) Depression (Chronic) Allergies No Known Allergies Allergy (Verified 10/30/17 13:11) Home Medications: Ambulatory Orders Medication Instructions Recorded Ascorbic Acid [Vitamin C] 1,000 mg PO BID 10/30/17 Biotin 5,000 mcg PO QHS 10/30/17 Chromium Picolinate 1,000 mcg PO BID 10/30/17 Surgical History: total knee arthroplasty Psychiatric History: Depression REGISTERED NURSE CARDIAC TELEMETRY History: No pertinent REGISTERED NURSE CARDIAC TELEMETRY history Smoking Status: Former smoker - *Family History Maternal History Items: No pertinent history Review of Systems Unable to obtain accurate/complete ROS d/t: Difficult to obtain secondary to acute condition, see HPI Patient Problems: Active and Suspected Problems Bladder cancer (Acute) ÁNGEL (stress urinary incontinence, female) (Acute) Objective: Chest x-ray was personally reviewed and shows bilateral infiltrates consistent with congestive heart failure. Patient did have an echocardiogram completed here in November 2017 showing an EF of 60% with mild to moderate tricuspid insufficiency and a pulmonary artery pressure of 55 mmHg. Aortic valve area at that time was 0.95 cm . Mild aortic insufficiency was noted. - Physical Exam General: Alert, Cooperative, - - Mild respiratory distress, but good BiPAP synchrony. Obese. HEENT: Atraumatic, PERRLA, EOMI, Normocephalic, - - No scleral icterus or injection noted Oral: Moist Mucosa, No Gingival or Mucosal Lesions/ Ulcerations, - - Fair dentition Neck: Supple, No Nodes, Trachea Midline, JVD, Right Lungs: No rhonchi, No wheeze, Diminished, Rales - Bilateral, - - Symmetric expansion. No dullness to percussion. Cardiovascular: Regular rate, Regular Rhythm, Normal S1, Normal S2, Murmur - Grade 3 out of 6 systolic ejection murmur at the right sternal border, No rub noted, No Gallop Abdomen: Bowel Sounds Present, Soft, Non Tender, Non-Distended, Obese Extremities: No clubbing, No cyanosis, No edema, Capillary Refill Less than 3 Seconds Skin: No rashes, No breakdown Musculoskeletal: No Tenderness to Palpation of Joints or Extremities Lymphatic: No Cervical, Supraclavicular, or Inguinal Adenopathy Neurological: Cranial nerves II-XII grossly intact, Neuro grossly intact, Motor Exam 5/5 strength throughout Psych/Mental Status: Normal Affect, Appropriate Vital Signs Temp Pulse Resp BP Pulse Ox 36.4 C L 81 27 H 141/60 H 92 12/27/17 09:45 12/27/17 10:00 12/27/17 09:45 12/27/17 09:45 12/27/17 09:45 Oxygen Flow Rate 10 Oxygen Delivery Method Bi-pap Weight: 95.1 kg Body Mass Index (BMI) 33.8 Laboratory Tests Past 24 Hrs Sodium 143 Potassium 4.0 Chloride 109 H Carbon Dioxide 24.0 Anion Gap 10 BUN 18 POC Glucose POC Glucose 234 H 166 H Clinical Impression(s) from Imaging Studies Chest X-Ray 12/27/17 08:40 IMPRESSION: Findings suggestive of pulmonary edema. Electronically Signed: Negro Gonzales MD at 9:16 EST Tel [phone], Service support , Assessment/Plan Active and Suspected Problems Bladder cancer (Acute) ÁNGEL (stress urinary incontinence, female) (Acute) RECOMMENDATIONS: 1. Continue BiPAP therapy for now 2. Lasix as needed for oxygenation 3. BiPAP breaks later today 4. Every 6 blood sugar checks with sliding scale insulin 5. KVO IV fluids 6. Cycle troponins 7. Patient can eat if off of BiPAP for an hour IMPRESSIONS: 1. Acute hypoxic respiratory failure secondary to probable flash pulmonary edema Patient with flash pulmonary edema noted on chest x-ray and severe hypoxemia. Patient does have underlining aortic stenosis. Amount of fluid use during surgery is not clear at this time, but clinical suspicion is patient has developed pulmonary edema. Patient has received Lasix. BiPAP rescue for now, but anticipate rapid recovery. BiPAP breaks as tolerated later today. If able to tolerate off of BiPAP for an hour, patient can be initiated on a diet from my perspective. Blood sugars will need to be checked and these can be changed to q. before meals and at bedtime once diet is initiated. Would not recommend bronchodilators at this time. No beta blockade is indicated in this patient is not significantly tachycardic. KVO IV fluids given patient's active diuresis. 2. Acute on chronic diastolic congestive heart failure secondary to aortic stenosis Patient with aortic stenosis as an outpatient as confirmed by echocardiogram in November and December. EF is preserved. EKG does not show any significant ST elevations. Will obtain cardiac enzymes. Hold on any anticoagulation or cardiology consult for now. 3. Diabetes mellitus type 2 Patient with elevated blood sugars at this time. Patient is on metformin at home. Given her n.p.o. status, will cover with sliding scale insulin for now. 4. Bladder cancer/depression/hypertension/hypothyroidism/advanced age Complicates care, management, recovery and prognosis. Okay to resume home medications from my perspective, except for Lasix. This will be given IV. TIME: 32 minutes critical care time spent addressing patient's acute hypoxic respiratory failure, congestive heart failure, diabetes mellitus, review of all data in collaboration with care team (9:30 AM to 10:30 AM) Code Visit 9xxxx: [id number] Critical care first hour 12/28/17 0424 <Electronically signed by Jas Calderon MD> Date Jas Calderon MD Cosigner Signature (if applicable): Date CC: Jas Calderon MD; Raudel Marquez Signed BASIC METABOLIC Collected: 12/28/2017 Status: F Source: CATIE PROFILE (BMP) 4:00 AM [facility] TYPE CODE TESTS RESULT OUT OF RANGE REFERENCE UNITS LAB L501.0100 70-110 mg/dL High GLU 126 Result Comment: Fasting Glucose result greater than or equal to 126 mg/dL suggests DIABETES MELLITUS per A.D.A. criteria. LAB L501.1000 7-18 mg/dL Normal BUN 17 LAB L501.1100 0.55-1.02 mg/dL Normal CREAT,SERUM 0.72 Result Comment: The validity of the calculated GFR AND GFRAA in patients over 70 years has not been determined. Clinical correlation is essential. LAB L501.1110 >60 mL/min Normal EST GFR 84 Result Comment: Non- GFR Calc LAB L501.1115 >60 mL/min Normal EST GFR - AA 102 Result Comment: GFR Calc LAB L501.1255 ml/min Normal Estimated CRCL 46.90 LAB L501.1300 10-20 RATIO High BUN/CRE 23.5 LAB L501.2200 8.5-10 mg/dL Low .1 CA 8.1 LAB L501.5300 136-14 mmol/L Normal 5 NA 141 LAB L501.5600 3.5-5. mmol/L Normal 1 K 3.5 LAB L501.5900 98-107 mmol/L Normal CL 103 LAB L501.6100 21.0-3 mmol/L Normal 2.0 CO2 29.0 LAB L501.6200 5-15 Normal GAP 9 Performed By: #### L500.2500, L501.2300, L501.5200 #### [facility] [address] [place], [place], [address] PHOSPHORUS Collected: 12/28/2017 Status: F Source: NAZARETH 4:00 AM [facility] TYPE CODE TESTS RESULT OUT OF RANGE REFERENCE UNITS LAB L501.2300 2.5-4.9 mg/dL Normal PHOS 3.6 Performed By: #### L500.2500, L501.2300, L501.5200 #### [facility] [address] [place], [place], [address] MAGNESIUM Collected: 12/28/2017 Status: F Source: NAZARETH 4:00 AM [facility] TYPE CODE TESTS RESULT OUT OF RANGE REFERENCE UNITS LAB L501.5200 1.6-2.6 mg/dL Normal MG 2.0 Result Comment: Please note revised Magnesium reference range effective 2017. Performed By: #### L500.2500, L501.2300, L501.5200 #### [facility] [address] [place], [place], [address] CBC W/DIFF, AUTOMATED Collected: 12/28/2017 Status: F Source: CATIE 4:00 AM [facility] TYPE CODE TESTS RESULT OUT OF RANGE REFERENCE UNITS LAB L100.1000 4.4-11.0 K/mm3 High WBC 13.6 LAB L100.1200 4.2-5.4 M/mm3 Low RBC 4.12 LAB L100.1300 12.0-15.0 g/dl Normal HGB 13.0 LAB L100.1400 37-47 % Normal HCT 39.5 LAB L100.1500 81-99 fL Normal MCV 95.9 LAB L100.1600 27.0-32.0 pg Normal MCH 31.6 LAB L100.1700 32-36 g/gl Normal MCHC 32.9 LAB L100.1810 11.6-14.6 % Normal RDW CV 13.8 LAB L100.1820 35.1-43.9 fl High RDW SD 47.9 LAB L100.1900 150-450 K/mm3 Normal PLT 181 LAB L100.2000 6.2-12.0 fl Normal MPV 9.6 LAB L100.2100 47-70 % Normal NEUT% 67.6 LAB L100.2200 19-41 % Normal LY% 24.3 LAB L100.2300 0-10 % Normal MONO% 6.5 LAB L100.2400 0-5 % Normal EO% 1.4 LAB L100.2500 0-1 % Normal BASO% 0.1 LAB L100.2550 0.0-0.9 % Normal IM GRAN % 0.100 Result Comment: IG% - Immature Granulocytes (promyelocytes, myelocytes and metamyelocytes) > 1% indicates that a LEFT SHIFT is Present. LAB L100.2620 2.0-7.7 X10 3/uL High Absolute Neut 9.2 LAB L100.2720 0.83-4.51 X10 3/ul Normal Absolute Lymph 3.32 Performed By: #### L100.0100 #### [facility] [address] [facility] [place], [address] TROPONIN-I Collected: 12/27/2017 Status: F Source: NAZARETH 11:00 PM [facility] Order Comment: 'TROP' Serial specimen #1, #2, #3, or #4: 3 TYPE CODE TESTS RESULT OUT OF RANGE REFERENCE UNITS LAB L501.4010 <0.06 ng/mL Normal 0.02 TROPONIN-I Result Comment: TROPONIN-I EXPECTED VALUES <0.05 NEGATIVE 0.06 - 0.59 AT RISK OF SC > OR = 0.60 SUGGEST SC Performed By: #### L501.4010 #### [facility] [address] [facility] [place], [address] BEDSIDE GLUCOSE Collected: 12/27/2017 Status: F Source: CATIE 10:58 PM [facility] TYPE CODE TESTS RESULT OUT OF REFERENCE UNITS RANGE LAB L501.080 70-110 mg/dL High BEDSIDE GLU 132 Result Comment: MANAGEMENT OF PATIENT CARE PER NURSING PROTOCOL Performed By: #### L501.080 #### [facility] Point of Care [address] [place] [address] TROPONIN-I Collected: 12/27/2017 Status: F Source: NAZARETH 4:55 PM [facility] Order Comment: 'TROP' Serial specimen #1, #2, #3, or #4: 2 TYPE CODE TESTS RESULT OUT OF RANGE REFERENCE UNITS LAB L501.4010 <0.06 ng/mL Normal 0.03 TROPONIN-I Result Comment: TROPONIN-I EXPECTED VALUES <0.05 NEGATIVE 0.06 - 0.59 AT RISK OF SC > OR = 0.60 SUGGEST SC Performed By: #### L501.4010 #### [facility] [place], [address] BEDSIDE GLUCOSE Collected: 12/27/2017 Status: F Source: NAZARETH 4:33 PM [facility] TYPE CODE TESTS RESULT OUT OF REFERENCE UNITS RANGE LAB L501.080 70-110 mg/dL High BEDSIDE GLU 173 Result Comment: MANAGEMENT OF PATIENT CARE PER NURSING PROTOCOL Performed By: #### L501.080 #### [facility] Point of Care [address] [place] [address] M R STAPH AUREUS Collected: 12/27/2017 Status: F Source: CATIE DNA BY PCR 2:25 PM [facility] TYPE CODE TESTS RESULT OUT OF RANGE REFERENCE UNITS LAB L8200.1100 Negative Normal MRSA Negative RESULT Performed By: #### L8200.1000 #### [facility] [address] [place], [address] TROPONIN-I Collected: 12/27/2017 Status: F Source: NAZARETH 12:55 PM [facility] Order Comment: 'TROP' Serial specimen #1, #2, #3, or #4: 1 TYPE CODE TESTS RESULT OUT OF RANGE REFERENCE UNITS LAB L501.4010 <0.06 ng/mL Normal 0.03 TROPONIN-I Result Comment: TROPONIN-I EXPECTED VALUES <0.05 NEGATIVE 0.06 - 0.59 AT RISK OF SC > OR = 0.60 SUGGEST SC Performed By: #### L501.4010 #### [facility] [address] [place], [address] MAGNESIUM Collected: 12/27/2017 Status: F Source: CATIE 12:55 PM [facility] TYPE CODE TESTS RESULT OUT OF RANGE REFERENCE UNITS LAB L501.5200 1.6-2.6 mg/dL Low MG 1.5 Result Comment: Please note revised Magnesium reference range effective 2017. Performed By: #### L501.5200, L501.5600 #### [facility] [address] [place], [address] POTASSIUM Collected: 12/27/2017 Status: F Source: CATIE 12:55 PM [facility] TYPE CODE TESTS RESULT OUT OF RANGE REFERENCE UNITS LAB L501.5600 3.5-5.1 mmol/L Low K 3.4 Performed By: #### L501.5200, L501.5600 #### [facility] [address] [place], [address] BEDSIDE GLUCOSE Collected: 12/27/2017 Status: F Source: CATIE 12:24 PM [facility] TYPE CODE TESTS RESULT OUT OF REFERENCE UNITS RANGE LAB L501.080 70-110 mg/dL High BEDSIDE GLU 186 Result Comment: MANAGEMENT OF PATIENT CARE PER NURSING PROTOCOL Performed By: #### L501.080 #### [facility] Point of Care [address] [place] [address] BEDSIDE GLUCOSE Collected: 12/27/2017 Status: F Source: CATIE 9:24 AM [facility] TYPE CODE TESTS RESULT OUT OF REFERENCE UNITS RANGE LAB L501.080 70-110 mg/dL High BEDSIDE GLU 234 Result Comment: MANAGEMENT OF PATIENT CARE PER NURSING PROTOCOL Performed By: #### L501.080 #### [facility] Point of Care [address] [place], [place] [address] BASIC METABOLIC Collected: 12/27/2017 Status: F Source: CATIE PROFILE (BMP) 8:50 AM [facility] Order Comment: 'TROP' Serial specimen #1, #2, #3, or #4: 1 TYPE CODE TESTS RESULT OUT OF RANGE REFERENCE UNITS LAB L501.0100 70-110 mg/dL High GLU 212 Result Comment: Glucose result greater than or equal to 200 mg/dL suggests DIABETES MELLITUS per A.D.A. criteria. LAB L501.1000 7-18 mg/dL Normal BUN 18 LAB L501.1100 0.55-1.02 mg/dL Normal CREAT,SERUM 0.86 Result Comment: The validity of the calculated GFR AND GFRAA in patients over 70 years has not been determined. Clinical correlation is essential. LAB L501.1110 >60 mL/min Normal EST GFR 69 Result Comment: Non- GFR Calc LAB L501.1115 >60 mL/min Normal EST GFR - AA 84 Result Comment: GFR Calc LAB L501.1255 ml/min Normal Estimated CRCL 54.54 LAB L501.1300 10-20 RATIO High BUN/CRE 21.1 LAB L501.2200 8.5-10 mg/dL Low .1 CA 8.3 LAB L501.5300 136-14 mmol/L Normal 5 NA 143 LAB L501.5600 3.5-5. mmol/L Normal 1 K 4.0 LAB L501.5900 98-107 mmol/L High CL 109 LAB L501.6100 21.0-3 mmol/L Normal 2.0 CO2 24.0 LAB L501.6200 5-15 Normal GAP 10 Performed By: #### L500.2500, L501.4010 #### [facility] [address] [place], [address] TROPONIN-I Collected: 12/27/2017 Status: F Source: CATIE 8:50 AM [facility] Order Comment: 'TROP' Serial specimen #1, #2, #3, or #4: 1 TYPE CODE TESTS RESULT OUT OF RANGE REFERENCE UNITS LAB L501.4010 <0.06 ng/mL Normal < 0.02 TROPONIN-I Result Comment: TROPONIN-I EXPECTED VALUES <0.05 NEGATIVE 0.06 - 0.59 AT RISK OF SC > OR = 0.60 SUGGEST SC Performed By: #### L500.2500, L501.4010 #### [facility] [address] [place], [address] CHEST 1 VIEW Observed: 12/27/2017 Status: F Source: NAZARETH (PORTABLE) 8:42 AM [facility] Imaging Services [address] [place] [address] Chest 1 View (Portable) MR#: [id number] Acct: [id number] Name: JONATHAN QUINTANILLA Rep #: [id number] : 1945 F 72 From: Negro Gonzales MD PCP: Raudel Marquez Status: REG [facility] Study: Chest 1 View (Portable) Date of Exam: 12/27/17 Exam# [id number] Ordering Dr: Luis Daniel Fink MD STUDY: X-RAY CHEST REASON FOR EXAM: Female, 72 years old. Postoperative dyspnea. TECHNIQUE: Single AP portable view of the chest. COMPARISON: Comparison is made with prior study dated November 05, 2017. FINDINGS: EKG electrodes are seen. There now is evidence of airspace disease in both lungs worse in the right upper lobe. This is suggestive of bilateral pulmonary edema. There is no demonstrated pleural abnormality. There is borderline cardiomegaly. Normal mediastinum and dustin. Normal visualized pulmonary arteries. There is atherosclerotic calcification of the aortic arch with tortuosity. There are diffuse degenerative changes of the visualized thoracic spine. Normal visualized ribs, clavicles, and shoulders. There is no demonstrated abnormality of the visualized soft tissue structures of the upper abdomen. RAD/Chest 1 View (Portable) IMPRESSION: Findings suggestive of pulmonary edema. Electronically Signed: Negro Gonzales MD at 9:16 EST Tel [phone], Service support , CC: Luis Daniel Fink MD; Raudel Marquez Document Imaging Specialist: Signed OPERATIVE REPORT Observed: 12/27/2017 Status: F Source: CATIE 8:27 AM [facility] Medical Records Department [address] [place] [address] Operative Report 12/27/17 0821 MR#: [id number] Acct: [id number] Name: JONATHAN QUINTANILLA Rep #: [id number] : 1945 72 From: Bipin Murray MD PCP: Raudel Marquez Status: REG [facility] Y Location: [place] [address] Problem List (1) Bladder cancer Status: Acute Qualifiers: Bladder location: lateral wall Qualified Code(s): C67.2 - Malignant neoplasm of lateral wall of bladder (2) ÁNGEL (stress urinary incontinence, female) Status: Acute Report of Operation Date of Procedure: 12/27/17 Pre-Operative Diagnosis: Bladder tumor/bladder cancer and stress urinary incontinence Post-Operative Diagnosis: Same Surgery/Procedure Performed:: Cystoscopy and transurethral resection of a medium-sized bladder tumor and instillation of mitomycin-C, and second procedure was tension-free vaginal sling Description of Surgical Findings:: 72-year-old female was taken back to the operating room. She underwent a hysterectomy last month at the time of hysterectomy she was placed to have a sling but she was found to have a bladder tumor support at that point the decision was to abort the sling and to address the bladder tumor a separate setting she underwent a hysterectomy she saw him in the office postoperatively and had a bladder tumor and we talked about resecting the bladder tumor and so we proceeded with that surgery she also we also talked about delay the sling and another separate setting. Patient was taken back to the operating room after smooth induction of general anesthesia she was placed in dorsal lithotomy position, looked inside the bladder with a 70 and 30 lens and she had a tumor on her lateral wall, I looked around the entire rest of the bladder did not see any other tumors. I then went in with the resectoscope and resected this medium-sized tumor from the lateral wall is about 2.5 cm in size. After this I inspected and given the fact that the tumor was easily resected I called the and recommended that we could go ahead and proceed with the sling if they desired the gave consent over the phone and the patient was hoping to have the sling done at a later setting anyway so we proceeded with placement of sling today. She underwent a vaginal prep and drape I then put a weighted vaginal speculum into the vaginal canal put a catheter into the bladder I inflated the catheter with 10 cc in the balloon pulled back to the bladder neck I then found the midline urethra made an incision in the mid urethra and created the space for the sling on the left side and the right side of the urethra up to the pubic bone. Once the space was created through a small 1 cm incision below the urethra I then went up to the pubic bone she was placed in Trendelenburg marked out 2 cm in the right side and 2 cm in the left side in the midline of the pubic bone made a small incision the skin I then passed the first trocar top down behind the pubic bone into the small incision into the vaginal incision where is going to pass the first part of the sling we did a cystoscopy and there is no perforation of the bladder I then passed the suture up on the sling on that side. I then passed the trocar top down the right side I again did a cystoscopy and there is no injury to the bladder and then passed the other side of the suture the sling on that side I then put the catheter in and then drained the bladder and then tensioned the sling using a heavy male and pulled the sling up until the sling was resting below the heavy Tillman I then pulled out the heavy Tillman pulled down the edges of the incision the sling appeared exceedingly too loose so I tightened it up on both the left side and the right side just about 2-3 mm and then appear to be laying flat on the urethra but no tension on the urethra. I then pulled the edges of the vaginal mucosa over the sling and then closed the ends incision the midline with interrupted 3 oh chromics. I cut off the excess sling suprapubically and closed the incisions with Dermabond glue. The bladder was then drained completely I then instilled mitomycin 40 cc into the bladder. No catheter was left and the patient anesthetic was reversed is taken back to the PACU in good condition if she is able to void successfully should go ahead home without a catheter if she cannot urinate healthy go home with a catheter. Type of Anesthesia:: General Drains: none Estimated Blood Loss (mL): 20cc - Admit VTE Documentation VTE Present on Admission: No VTE Mechan Device Prophylaxis: SCD's 12/27/17826 <Electronically signed by Bipin Murray MD> Date Bipin Murray MD CC: Bipin Murray MD; Raudel Marquez Signed BLADDER TUR Observed: 12/27/2017 Status: F Source: CATIE 7:30 AM [facility] Patient: JONATHAN QUINTANILLA : 1945 (72/F) Acct Num: [id number] Phys: Terri PENG,Bipin Dickson Unit Num: [id number] Loc: U [id number] Specimen: [id number] Received: 12/27/17729 Spec Type: TURB TISSUES TISSUES: Urinary bladder, NOS COMMENT BLADDER CANCER (TUR) SUMMARY: Procedure - transurethral resection Histologic type urethral (transitional cell) carcinoma Associated epithelial lesions none identified Histologic grade low grade (WHO) Tumor configuration predominantly endophytic with focal papillary Detrusor muscle not present Lymph-Vascular invasion - not present Microscopic extent of tumor invades subepithelial connective tissue (lamina propria) The above summary is in compliance with [employer] [place] [employer] (CAP) Cancer Protocols Checklist and [place] Joint Committee on Cancer (AJCC), Staging Manual, 8th Ed. Immunohistochemistry ([id number]) supports the above diagnosis. Case has been reviewed in consultation with Dr. Lopes who concurs with the above diagnosis. IDC:SJ GROSS DESCRIPTION Received in fixative is one container labeled with the patient's name and designated bladder tumor. The specimen consists of three irregular fragments of light dodge soft tissue that in aggregate measure 1 x 0.5 x 0.2 cm. The specimen is totally submitted in one cassette. / AM:rg 12/27/17 TC:0 CPT: 77343 HEADER OPERATION: Cysto, transurethral resection bladder tumor PRE-OP DIAGNOSIS: Bladder CA TISSUE SUBMITTED: Bladder tumor MICROSCOPIC DESCRIPTION Slides are reviewed. MICROSCOPIC DIAGNOSIS Urinary bladder tumor, transurethral resection: Urothelial carcinoma. See comment for cancer checklist. AM:rg 12/30/17 Signed Madan Sheth 12/31/17 <signature on file> Performed By: #### PBLB #### [facility] [address] [place], [address] DISCHARGE INSTRUCTION Observed: 12/27/2017 Status: F Source: NAZARETH 7:28 AM [facility] Medical Records Department [address] [place] [address] Instructions for Home/Discharge Instructions 12/27/17 0726 MR#: [id number] Acct: [id number] Name: JONATHAN QUINTANILLA Rep #: [id number] : 1945 72 From: Bipin Murray MD PCP: Raudel Marquez Status: REG [facility] [place] Discharge Diet: Light diet - advance as tolerated Discharge Activity: Return to Normal Activity Call your doctor if your incision/area has: Continuous Slow Oozing, Sudden Increased Bleeding, Increased Pain/ Swelling, Increased Redness, Foul Smelling Discharge, Swelling at the incision site Instructions: Treating Bladder Cancer: TUR (Transurethral Resection) Allergies/Adverse Reactions: Allergies No Known Allergies Allergy (Verified 10/30/17 13:11) Medications to take at Discharge Ascorbic Acid [Vitamin C] 1,000 mg PO BID 10/30/17 Biotin 5,000 mcg PO QHS 10/30/17 Chromium Picolinate 1,000 mcg PO BID 10/30/17 Cinnamon Bark [Cinnamon] 1,000 mg PO BID 10/30/17 Copper Gluconate [Copper] 2 mg PO DAILY 10/30/17 Cyanocobalamin (Vitamin B-12) [Vitamin B-12] 500 mcg PO BID 10/30/17 Folic Acid 1 mg PO DAILY@0800 10/30/17 Gabapentin [Neurontin] 300 mg PO TID 10/30/17 Gluc/Elmo-MSM#1/C/Rahul/Alex/Bor [Osteo Bi-Flex Caplet] 2 each PO DAILY 10/30/17 Kelp 600 mcg PO BID 10/30/17 Krill Oil 1,000 mg PO DAILY 10/30/17 Levothyroxine [Synthroid] 175 mcg PO DAILY 10/30/17 Lovastatin [Mevacor] 20 mg PO DAILY 10/30/17 Lutein 20 mg PO DAILY 10/30/17 Metformin HCl [Metformin HCl ER] 500 mg PO BID 10/30/17 Paroxetine HCl [Paxil] 30 mg PO DAILY 10/30/17 Vits [Prenatabs FA ] 2 tablet PO DAILY 10/30/17 Pyridoxine HCl [Vitamin B-6] 100 mg PO BID 10/30/17 Ubidecarenone [Coq10] 200 mg PO DAILY 10/30/17 Docusate Sodium [Colace] 100 mg PO BID PRN PRN #60 cap 11/04/17 Furosemide [Lasix] 20 mg PO DAILY #30 tab 11/06/17 Calcium Carbonate/Vitamin D3 [Calcium 500-Vit D3 600 Tablet] 1,200 mg PO DAILY 12/20/17 Ciprofloxacin [Cipro] 500 mg PO BID #6 tab 12/27/17 Hydrocodone/Acetaminophen [Easton 5-325 Tablet] 1 ea PO Q4H PRN PRN #14 tab 12/27/17 The following prescriptions were given: Hydrocodone/Acetaminophen [Easton 5-325 Tablet] 1 ea PO Q4H PRN PRN #14 tab PRN Reason: Pain Ciprofloxacin [Cipro] 500 mg PO BID #6 tab Primary Care Physician: Raudel Marquez [Primary Care Provider] - Please Follow Up With: Bipin Murray MD When: Appt SaturdayJan 07 at 10:15 am. 12/27/17 0728 <Electronically signed by Bipin Murray MD> Date Bipin Murray MD CC: Raudel Marquez BEDSIDE GLUCOSE Collected: 12/27/2017 Status: F Source: CATIE 6:30 AM [facility] TYPE CODE TESTS RESULT OUT OF REFERENCE UNITS RANGE LAB L501.080 70-110 mg/dL High BEDSIDE GLU 166 Result Comment: MANAGEMENT OF PATIENT CARE PER NURSING PROTOCOL Performed By: #### L501.080 #### [facility] Point of Care [address] [place] [address]. [place] [address] IMMUNOHISTOCHEMISTRY Observed: 12/27/2017 Status: F Source: NAZARETH 12:00 AM [facility] Patient: JONATHAN QUINTANILLA : 1945 (72/F) Acct Num: [id number] Phys: Terri PENG,Bipin Dickson Unit Num: [id number] Loc: [facility] [id number] Specimen: [id number] Received: 12/30/17 - 9 Spec Type: IMMUNO TISSUES TISSUES: Urinary bladder, NOS SPECIMEN INFORMATION: Tissue Source: Bladder tumor Clinical Info: [id number] Specimen Number: [id number] CPT code: 82068, 14226 x3 METHODOLOGY: Deparaffinized sections of prefer/formalin-fixed tissue or PAP/DQ stained slides are incubated with monoclonal/polyclonal antibodies/oligonucleotide probes. Localization is made via biotin free immunoperoxidase method. Appropriate controls are performed and reacted as expected. Results on target cell population are indicated in the following table: RESULTS: ANTIBODY / CLONE RESULT CK7 (OV-TL12/30) positive CK20 (KS20.8) positive P53 (DO-7) positive, dim anti-CD44 (SP37) positive These tests were developed and their performance characteristics determined by [facility]. They may not have been cleared or approved by the U.S. Food and Drug Administration. The FDA has determined that such clearance or approval is not necessary. INTERPRETATION: Bladder tumor: Consistent with urothelial carcinoma, endophytic type. AM:deny 12/31/17 Case has been reviewed in consultation with Dr. Lopes who concurs with the above diagnosis. IDC: PHYSICIAN AND INSTITUTION [address] [id number] Signed Madan Sheth 12/31/17 <signature on file> Performed By: #### PIMM #### [facility] [address] [place] [address]. [place], [address] CBC-COMPLETE BLOOD CNT Collected: 12/20/2017 Status: F Source: CATIE NO DIFF 2:00 PM [facility] TYPE CODE TESTS RESULT OUT OF RANGE REFERENCE UNITS LAB L100.1000 4.4-11.0 K/mm3 Normal WBC 9.5 LAB L100.1200 4.2-5.4 M/mm3 Normal RBC 4.23 LAB L100.1300 12.0-15.0 g/dl Normal HGB 13.2 LAB L100.1400 37-47 % Normal HCT 40.3 LAB L100.1500 81-99 fL Normal MCV 95.3 LAB L100.1600 27.0-32.0 pg Normal MCH 31.2 LAB L100.1700 32-36 g/gl Normal MCHC 32.8 LAB L100.1810 11.6-14.6 % Normal RDW CV 14.0 LAB L100.1820 35.1-43.9 fl High RDW SD 48.3 LAB L100.1900 150-450 K/mm3 Normal PLT 192 LAB L100.2000 6.2-12.0 fl Normal MPV 9.4 Performed By: #### L100.0500 #### [facility] [address] [place], [place], [address] HEMOGLOBIN A1C Collected: 12/20/2017 Status: F Source: CATIE 2:00 PM [facility] TYPE CODE TESTS RESULT OUT OF RANGE REFERENCE UNITS LAB L501.9985 4.2-6.3 % Normal HGB A1C 6.3 Performed By: #### L501.9985 #### [facility] [address] [place], [address] LIVER PROFILE Collected: 12/20/2017 Status: F Source: NAZARETH 2:00 PM [facility] TYPE CODE TESTS RESULT OUT OF RANGE REFERENCE UNITS LAB L501.1500 6.4-8.2 g/dL Normal T PROT 7.3 LAB L501.1800 3.4-5.0 g/dL Normal ALB 3.6 Result Comment: Please note revised Albumin AND Globulin reference range effective 2017. LAB L501.1950 2.2-4.2 g/dL Normal GLOB 3.7 LAB L501.4100 15-37 U/L Normal AST 15 LAB L501.4305 45-117 U/L Normal ALK P 74 LAB L501.4405 12-78 U/L Normal ALT 23 LAB L501.4600 0.20-1.00 mg/dL Normal T BILI 0.70 LAB L501.4700 0.00-0.30 mg/dL Normal D BILI 0.16 Performed By: #### L500.3400, L501.9520 #### [facility] [address] [place], [place], [address] THYROID STIM HORMONE Collected: 12/20/2017 Status: F Source: NAZARETH (TSH) 2:00 PM [facility] TYPE CODE TESTS RESULT OUT OF RANGE REFERENCE UNITS LAB L501.9520 0.358-3.74 uIU/mL Low TSH 0.06 Performed By: #### L500.3400, L501.9520 #### [facility] [address] [place], [address] ALLERGIES ALLERGIES DATE TYPE / CODE NAME / CODE REACTION SEVERITY SOURCE 10/30/2017 Drug No Known Unknown [place] Allergy/656515424(S Allergies/F0019 [facility] NOMED CT) 06762(RXNORM) Hospital Repository Miscellaneous No Known Drug Moderate [facility] Allergy/047846948(S Allergies (Severity [facility] NOMED CT) Modifier) [facility] (Qualifier Repository Value) ENCOUNTERS ENCOUNTERS ADMIT/DISCHARGE ACCOUNT NUMBER ADMITTING ENCOUNTER LOCATION SOURCE CLASS 10/28/2018 [id number] Ambulatory [facility] ding:LABSPEC Repository 05/19/2018/05/19/[id number] OSBALDO Emergency Buildin[address] [place] [address] Room: ERBed: [facility] Repository 04/02/2018/04/02/20 [id number] Ambulatory Demarco Hernandez ing:[facility] Repository 03/17/2018 [id number] THA Ambulatory [facility] Repository 03/04/2018/03/05/20 [id number] THA NASH, Inpatient ABuilding:MICHAEL Koroma Encounter SDRoom: Health GRACIE 0218Bed: [facility] Repository 02/28/2018/02/29/20 [id number] Ambulatory AULTMANBuild Elicia 18 ing:[facility] Repository 02/19/2018/02/20/20 [id number] Ambulatory AULTMANBuild Elicia 18 ing:[facility] Repository 02/13/2018/02/14/20 [id number] NAIDA, Ambulatory Rakesh Pomerene 18 [facility] Repository 02/11/2018/02/12/20 [id number] RAUDEL MARQUEZ Ambulatory [address] Repository 02/07/2018/02/08/20 [id number] Ambulatory ABuilding:SD Elicia 18 CCRoom: Health 0002Bed: [facility] Repository 01/30/2018/01/31/20 [id number] THA Ambulatory [address] Repository 12/27/2017/12/29/19 [id number] Bipin Murray Inpatient Catie [place] 18 [facility] ding:PCURoom Repository : [id number]: 1 12/27/2017/12/29/19 [id number] Ambulatory BMSBuilding: Catie 18 [facility] Repository PAYERS PAYERS ENCOUNTER GUARANTOR PAYER SUBSCRIBER SOURCE 10/28/2018 JONATHAN C Primary Insurance:AETNA JONATHAN C SWANKDOB: [place] [id number] MCRPolicy Number: [id number] [address]Wnu: Date:[id number] BOX Repository [id number] PASOJARVIS (ZM) [phone]: 10/28/2018 Secondary NOT GIVENUNK [place] Insurance:SELF PAY [facility] INSURANCEPolicy Number: Hospital Effective Repository Date:2018-10-28 05/19/2018 JONATHAN C Primary Insurance:AETNA JONATHAN C SWANKDOB: Rakesh Pomerene SWANKDOB: [facility] [id number] [facility] [id number] Number: [address] Hospital TR [id number] [address] [place] [address], Repository [address] [place] [address], Date:Plan Name:[address] [id number] [place] [address], [place] [id number]: [phone]: [phone] () 04/02/2018 JONATHAN C Primary Insurance:AETNA JONATHAN C SWANKDOB: [facility] SWANKDOB: MEDICARE [facility] [id number] [facility] Number: [address] Repository [facility] [id number] [address] [place] [address], [address] [place] [address], Date:2018-03-04 - [place] [address]Owl: [place] [id number] Name:NPO [id number]@ [address] [place] ()Tel: (236) OKHARQMAMIESHA.[facility] [address]FY: () el: [phone] (HP) 03/17/2018 JONATHAN C Primary Insurance:AETNA JONATHAN Jaramillo SWANKDOB: Rakesh Gomez SWANKDOB: O RECURRINGPolicy [id number] [facility] Number: [address] Hospital TR [id number] [address] [place] [address], Repository [address] [place] [address], Date:Plan Name:[facility] [id number] [place] [id number]: () 03/17/2018 Secondary JONATHAN C SWANKDOB: Rakesh Gomez Insurance:AETNA O [id number] [facility] Number: [address] Hospital [id number] [address] [place] [address], Repository Date:Plan Name:[facility] [id number] 03/04/2018 JONATHAN C Primary Insurance:AETNA JONATHAN C SWANKDOB: [facility] SWANKDOB: MEDICARE HMO AMEPolicy [id number] [facility] Number: [address] [facility] Repository [facility] [id number] [address] [place] [address], Date:2018-02-25 - [place] [address]Ygz: [place] [address]Ijy: [id number] Name:[address] JARVIS Servin ()Tel: [phone]) (HP) [phone]: ([phone] 03/04/2018 Secondary JONATHAN C SWANKDOB: [facility] Insurance:MEDICARE PART [id number] [facility] APolicmauro Number: [address] [facility] Repository [id number] [address] [place] [address], Date:2018-02-25 - [place] [address]Mzc: [id number] Name:[facility] (HP)Tel: [phone] (WP) [id number], [place] [address]IQ: 02/28/2018 JONATHAN C Primary Insurance:AETNA JONATHAN C SWANKDOB: [facility] SWANKDOB: MEDICARE HMO AMEPolicy [id number] [facility] Number: [address] [facility] Repository [facility] [id number] [address] [place] [address], Date:2018-02-25 - [place] [address]Vgs: [place] [address]Qja: [id number] Name:[address] JARVIS Servin ()Tel: [phone]) (HP) [phone]: ([phone] 02/19/2018 JONATHAN C Primary Insurance:AETNA JONATHAN C SWANKDOB: [facility] SWANKDOB: MEDICARE HMO AMEPolicy [id number] [facility] Number: [address] Rep[facility] [id number] [address] [place] [address], [address] [place] [address], Date:2018-02-03 [place] [address]Ukf: [place] [address]Qvz: [id number] Name:[address] [place] [address] (HP)Tel: [phone] (HP) [phone]: () [phone] 02/13/2018 JONATHAN C [facility] JUDEERNESTINE [facility]At[facility] CenterDOB: O [facility] CenterB: [facility] Number: [id number] [facility] TR BGFELICITYQEffective [address] Repository [address] [place] [address], Date:Plan Name:A3P O [address] [place] [address] [place] [id number]: [id number]: [phone] () 02/11/2018 JONATHAN C [facility] JUDEERNESTINE BennettAt[facility] Health [facility] Medical CenterDOB: [facility] CenterB: [facility] Number: [id number] [facility] TR BGFELICITYQAmadafective [address] Repository [address] [place] [address], Date:Plan Name:A3P O [address] [place] [address] [place] [id number]: [id number]: [phone] () 02/07/2018 JONATHAN C Primary Insurance:AETNA JONATHAN Clint [facility] MEDICARE O [facility] [id number] [facility] Number: [address] Repository [facility] [id number] [address] [place] [address], [address] [place] [address], Date:2018-01-30 - [place] [address]Nli: [place] [address]Qbb: [id number] Name:[address] JARVIS Servin ()Tel: [phone]) (HP) [phone]: () [phone] 01/30/2018 JONATHAN C Primary Insurance:AETNA O%JUDE W Rakesh Gomez SWANKDOB: O OUTPATIENTPolicy SWANKDOB: [facility] [id number] Number: [id number] [facility] [address] Repository [address] [place] [address], Date:Plan Name:A3P O [address] [place] [address] [address] [place] [phone] [id number]: [phone]: [phone] () 12/27/2017 JONATHAN C Primary Insurance:AETNA JONATHAN C SWANKDOB: [place] [id number] TW MCRPolicy Number: [id number] [address], Date:8156-07-64RY BOX Repository [place] [address]Cpy: [id number] JARVIS SERVIN [address]UE: [phone] 12/27/2017 Secondary NOT GIVENUNK [place] Insurance:SELF PAY Community INSURANCEPolicy Number: Hospital Effective Repository Date:2017-12-05 12/27/2017 JONATHAN C Primary Insurance:AETNA JONATHAN C SWANKDOB: Catie [id number] TW MCRPolicy Number: [id number] [address], Date:2183-45-09HC [place]OX [place]ository [place] [address]Uet: [id number] JARVIS SERVIN [address]KO: [phone] 12/27/2017 Secondary NOT GIVENUNK [place] Insurance:SELF PAY Community INSURANCEPolicy Number: Hospital Effective Repository Date:2017-12-27
== END ==
PROVIDERS: Family Provider Family Medicine; PCP Family Medicine; Referring Provider Urology; Visit Provider Urology
DX: C67.2 Malignant neoplasm of lateral wall of bladder (principal)
CPT/HCPCS: 88108; 88305; 88313

== ENCOUNTER → 2019-10-05 17:01 | Outpatient (CLI) | payer MEDICARE, SELFPAY | PROVIDERS: Family Provider Family Medicine; PCP Family Medicine; Referring Provider Urology; Visit Provider Urology | DX: R30.0 Dysuria (principal) | CPT/HCPCS: 87077; 87086; 87088; 87186 ==

== ENCOUNTER → 2021-05-04 | Outpatient (CLI) | payer MEDICARE, SELFPAY ==
[2017-12-27 09:29] VITALS: BMI 33.8
== END | disposition home or self-care (01) ==
LOC: LABSPEC 15:45
PROVIDERS: PCP Family Medicine; Visit Provider Urology
DX: N39.0 Urinary tract infection, site not specified (principal)
CPT/HCPCS: 87077; 87086; 87088; 87186

== ENCOUNTER 2023-12-04 09:37 | Day surgery (SDC) | payer MEDICARE, SELFPAY ==
[2023-12-04] VITALS (7 sets, daily range): BP systolic 101–133; BP diastolic 40–54; PULSE 59–74; RESP 14–18; TEMP 36.3–36.8; O2SAT 92–100; BMI 32.1
[2023-12-04] MEDS: Lactated Ringers 1,000 ML 15 ML IV (10:29)
--- NOTE | 2023-12-04 10:30 | RAD_ITS ---
STUDY: X-RAY - PELVIS REASON FOR EXAM: Female, 78 years old. Fluoroscopically guided procedure of posterior fusion of the lumbosacral spine. TECHNIQUE: Fluoroscopy was provided for operative procedure posterior fusion of the lumbosacral junction. The radiologist was not present in the room. 3 images were obtained during the exam. The reported fluoroscopy time is 27.8 seconds. The cumulative reported dose is 16.55 mgy. COMPARISON: None. FINDINGS: The images provided reveal posterior fusion at L5-S1. RAD/Pelvis 1 or 2 Views IMPRESSION: Fluoroscopically guided procedure as described. For details please see operative report. Electronically Signed: Genevieve Saenz MD at 17:03 EST ,
[2023-12-04 10:56] LABS: Bedside Glucose 167 mg/dL (74-106)
--- NOTE | 2023-12-04 11:07 | DCINST_ITS ---
Discharge Instructions Diet Discharge Diet: No restrictions Activity Discharge Activity: Return to Normal Activity and May Not Drive (while taking narcotic pain medications.) Dressing / Incision Call your doctor if you observe: Fever of 101 or Higher Follow Up Care Please Follow Up With: Bipin Murray MD When: Call [phone] for an appointment Test Results: Test results from this visit will be discussed in further detail at your follow- up appointment, if applicable. Discharge Plan Admission Primary Reason for Your Visit: Stage I InterStim Attending Provider: Bipin Murray Primary Care Provider: Raudel Marquez Discharge Orders/Prescriptions Prescriptions: New cephalexin 500 mg capsule 500 mg PO TID Qty: 10 0RF Continued levothyroxine 175 MCG tablet 150 mcg PO DAILY Kelp 150 MCG tablet 600 mcg PO BID cyanocobalamin (vitamin B-12) [Vitamin B-12] 500 MCG tablet 500 mcg PO BID ascorbic acid (vitamin C) [Vitamin C] 500 MG tablet 1,000 mg PO DAILY paroxetine HCl [Paxil] 30 MG tablet 30 mg PO DAILY gabapentin [Neurontin] 300 MG capsule 600 mg PO Q12H pyridoxine (vitamin B6) 100 MG tablet 100 mg PO BID lovastatin 20 MG tablet 20 mg PO DAILY chromium picolinate 400 MCG tablet 1,000 mcg PO BID cinnamon bark 500 MG capsule 1,000 mg PO BID lutein 20 MG capsule 20 mg PO DAILY metformin 500 MG tablet,ER michelle.retention 24 hr 500 mg PO BID biotin 2,500 MCG capsule 5,000 mcg PO QHS Prenatabs FA 1 TABLET tablet 1 tab PO DAILY krill oil 500 MG capsule 1,000 mg PO DAILY coenzyme Q10 50 MG tablet,chewable 200 mg PO DAILY Osteo Bi-Flex Triple Strength 1 EACH tablet 2 ea PO DAILY calcium carbonate-vitamin D3 1 EACH tablet 1,200 mg PO DAILY acetaminophen [8 Hour Pain Reliever] 650 mg tablet extended release 1,300 mg PO DAILY furosemide 20 MG tablet 20 mg PO QODAY Referrals / Follow Up: Bipin Murray MD [Med Staff - Active Staff] - Raudel Marquez MD [Primary Care Provider] - Disposition Disposition (needs filled in before D/C Order can be placed): Home, Self Care
--- NOTE | 2023-12-04 11:07 | PCM.HP.STD ---
HPI - General General Date of Service: 12/04/23 Chief Complaint: Severe urge incontinence HPI Narrative JONATHAN QUINTANILLA, is a 78 F who presents for placement of stage I InterStim therapy with Axonics she has a history of severe urge incontinence has failed medical therapy voiding diaries were completed COUNT INCLUDES [facility] Medical History (Updated 11/21/23 @ 14:18 by Manoj Mcdowell) Anxiety Arthritis Cardiology follow-up encounter CPAP (continuous positive airway pressure) dependence Diabetes mellitus Easy bruising Former smoker History of rheumatic fever Wears glasses Home Medications ascorbic acid (vitamin C) 500 mg tablet (Vitamin C) 1,000 mg PO DAILY 10/30/17 [History Last Taken Unknown] biotin 2,500 mcg capsule 5,000 mcg PO QHS 10/30/17 [History Last Taken Unknown] chromium picolinate 400 mcg tablet 1,000 mcg PO BID 10/30/17 [History Last Taken Unknown] cinnamon bark 500 mg capsule 1,000 mg PO BID 10/30/17 [History Last Taken Unknown] coenzyme Q10 50 mg chewable tablet 200 mg PO DAILY 10/30/17 [History Last Taken Unknown] cyanocobalamin (vitamin B-12) 500 mcg tablet (Vitamin B-12) 500 mcg PO BID 10/30/17 [History Last Taken Unknown] gabapentin 300 mg capsule (Neurontin) 600 mg PO Q12H 10/30/17 [History Last Taken 12/04/23] glucosamine 750 xm-jikvejcevtu-bbl no1 644 mg-C 30 mg-luis 1 mg tablet (Osteo Bi-Flex Triple Strength) 2 ea PO DAILY 10/30/17 [History Last Taken Unknown] iodine (kelp) 0.15 mg tablet (Kelp) 600 mcg PO BID 10/30/17 [History Last Taken Unknown] krill oil 500 mg capsule 1,000 mg PO DAILY 10/30/17 [History Last Taken 11/27/23] levothyroxine 175 mcg tablet 150 mcg PO DAILY 10/30/17 [History Last Taken 12/27/17 05:25] lovastatin 20 mg tablet 20 mg PO DAILY 10/30/17 [History Last Taken Unknown] lutein 20 mg capsule 20 mg PO DAILY 10/30/17 [History Last Taken Unknown] metformin 500 mg 24 hr tablet,extended release (gastric retention) 500 mg PO BID 10/30/17 [History Last Taken Unknown] paroxetine HCl 30 mg tablet (Paxil) 30 mg PO DAILY 10/30/17 [History Last Taken Unknown] vits,calcium no.78-iron fumarate-folic acid 29 mg-1 mg tablet (Prenatabs FA) 1 tab PO DAILY 10/30/17 [History Last Taken Unknown] pyridoxine (vitamin B6) 100 mg tablet 100 mg PO BID 10/30/17 [History Last Taken Unknown] calcium carbonate 500 mg-vitamin D3 15 mcg (600 unit) tablet 1,200 mg PO DAILY 12/20/17 [History Last Taken Unknown] acetaminophen 650 mg tablet,extended release (8 Hour Pain Reliever) 1,300 mg PO DAILY 11/20/23 [History Last Taken Unknown] furosemide 20 mg tablet 20 mg PO QODAY 11/20/23 [History Last Taken Unknown] cephalexin 500 mg capsule 500 mg PO TID #10 caps 12/04/23 [Rx Last Taken Unknown] Allergy/AdvReac Type Severity Reaction Status Date / Time No Known Allergies Allergy Verified 12/04/23 10:18 Surgical History (Updated 11/21/23 @ 14:18 by Manoj Mcdowell) H/O gastric bypass S/P TAVR (transcatheter aortic valve replacement) Social History Smoking Status: Former smoker Vital Signs Vital Signs Vital Signs: 12/04/23 10:20 12/04/23 10:20 Temperature 98.3 F Temperature Source Temporal Pulse Rate 59 L Respiratory Rate 18 Respiratory Pattern Normal Blood Pressure 133/54 H Blood Pressure Mean 80 Blood Pressure Source Monitor Blood Pressure Position Semi-Fowlers Blood Pressure Location Left Arm Pulse Ox 100 Oxygen Delivery Method Room Air Weight Weight: 87.543 kg Body Mass Index (BMI) 32.1 Results Lab / Micro Data Labs: Laboratory Results - last 24 hr 12/04/23 10:23: POC Glucose 167 H
[2023-12-04] MEDS: Cefazolin 2 GM in 0.9% Normal Saline (100mL Bag) 100 ML IV (11:46)
[2023-12-04] MEDS: Lidocaine 1% /Epi 1:100 (20ml) 20 ML Vial (12:45)
--- NOTE | 2023-12-04 12:50 | PCM.OPRPT ---
Report of Operation Date of Procedure: 12/04/23 Pre-Operative Diagnosis: Urge incontinence and frequency Post-Operative Diagnosis: Same Surgery/Procedure Performed:: Stage I InterStim therapy implant Axonics Description of Surgical Findings:: The patient presents to the operating room for placement of stage I interstim therapy. In the preoperative setting she is failed medical management for the patient urge incontinence and severe frequency of urination, a voiding diary was reviewed. The patient understands these is no guarantees that in the future the InterStim therapy will keep working to the patient's satisfaction and its always possible and it may need to have a surgical revision, change in implant, possible revision or removal of implant. We also talk about the risks of pain with stimulation, bleeding and infection or any injury to nerves or bony structures and the tailbone area. After reviewing all this with the patient in the preoperative area she signed the consent form and we proceeded with stageI interstim therapy implant. Patient was brought back to the operating room and placed supine on the table and then transferred to facedown the table and underwent sedation with comfort hugging a pillow. Patient's lower back was prepped and draped in usual sterile fashion, I then palpated the bony landmarks identify the tailbone the sacrum and the pocket area was identified where the quality process lead would be implanced and also the lead. Fluoroscopy was brought in to identify the pelvis we identify the spinous processes of the pelvic bone we used a finder needle to lay across the spinous process to the approximate the location of the S3 foramen. I then identified the lateral borders of the foramen using the other spinal needle. Under this the skin was then marked and potential entrances were by approximation and bony landmarks using fluoroscopy. I then infiltrated the skin about 2 cm up above the approximation of the S3 foramen and then used the needle within the stage I InterStim kit to go straight down to the potential S3 foramen spot marching along the sacrum until the needle electrode dropped into what appeared to be the S3 foramen. Under fluoroscopy in AP and lateral veiw I confirmed that I had the lead in the S3 foramen, I then stimulated the needle and had good hector response and had toe flexion but no calf rotation, confirm placement of the lead in the S3 Foremen. I then placed the guide through the needle the stylette was removed and then the needle was removed over the guide an incision was made into the skin and then through the incision incision and over the guide I introduced the sheath I followed the sheath under fluoroscopy until the marker on the sheath was three fourths down from the anterior plate of the sacrum. Once this was in good position then the stylette was removed and through the sheath I then introduced the stage I InterStim stimulator lead, I then checked the lead for stimulation of hector and toe flexion at all 4 sites 0, 1, 2, 3 and had good response with hector and toe flexion and pleased with the placement of the lead. Under fluoroscopy I captured the placement the lead this was documented both in AP and lateral views. I then removed the stylette within the lead and then pulled back in the sheath of the deployed the tines on the lead to secure the lead and the sacrum and the S3 foramen. Another fluoroscopic check was done to make sure no movement of the lead. After this was confirmed then pocket was created in the patient's lateral side where the permanent lead was then attached to the temporary extension. We then tunneled the temporary extension wire with the provided tunneler in the kit to index incision site beyond the midline. After tunneling the wire then the wires connected to the external Bluetooth device. We then placed a suture knot in the temporary extension to prevent migration and then placed a temper extension in the pocket and the pocket Was closed in 2 layers we then used tapes and the provided belt in the kit to secure the temporary lead to the patient we then confirmed with Eureka King rep the lead was working and in the postoperative setting the patient will have the InterStim therapy set and programmed. Surgeon: Bipin Murray Type of Anesthesia: MAC and Topical Anesth Drains: none Estimated Blood Loss (mL): 0 Admit VTE Documentation VTE Present on Admission: No VTE Mechan Device Prophylaxis: SCD's VTE Pharm Prophylaxis ordered?: No
== END 2023-12-04 14:05 | disposition home or self-care (01) ==
LOC: SDC 09:40 → AC 09:42
PROVIDERS: PCP Family Medicine; Referring Provider Urology; Visit Provider Urology
PROC: (CPT 64581; principal; 2023-12-04 11:20)
DX: N39.41 Urge incontinence (principal); I27.20 Pulmonary hypertension, unspecified; E11.9 Type 2 diabetes mellitus without complications; Z87.891 Personal history of nicotine dependence; R23.3 Spontaneous ecchymoses; Z86.79 Personal history of other diseases of the circulatory system; Z98.84 Bariatric surgery status; G47.30 Sleep apnea, unspecified; Z99.89 Dependence on other enabling machines and devices; R35.0 Frequency of micturition
CPT/HCPCS: 64581; 00630; 72170; 76000; 82962; J7120; J2405

== ENCOUNTER 2023-12-18 11:53 | Day surgery (SDC) | payer MEDICARE, SELFPAY ==
[2023-12-18] VITALS (7 sets, daily range): BP systolic 108–142; BP diastolic 53–78; PULSE 52–69; RESP 14–18; TEMP 36–36.3; O2SAT 95–100; BMI 38.3
--- OUTSIDE RECORDS SUMMARY | 2023-12-18 12:21 | XMS RPT_ITS | CCD ---
Author Name Unknown Address [id number] [place] [address] Organization [facility] Care Team Providers Care Grating Machine Operator Name Role Phone Franci ALMAZAN Unavailable Unavailable Franci ALMAZAN Unavailable Unavailable Franci ALMAZAN Unavailable Unavailable Franci ALMAZAN Unavailable Unavailable RAUDEL MARQUEZ Unavailable Unavailable Franci ALMAZAN Unavailable Unavailable MIGUEL COTTON Unavailable Unavailable JACKIE JOHNSON Unavailable Unavailable LELE PASCAL Unavailable Unavailable RAUDEL MARQUEZ Unavailable Unavailable SNOW CASH Unavailable Unavailable Franci ALMAZAN Unavailable Unavailable RAUDEL MARQUEZ Unavailable Unavailable Franci ALMAZAN Unavailable Unavailable RAUDEL MARQUEZ Unavailable Unavailable RAUDEL MARQUEZ Admitting Unavailable RAUDEL MARQUEZ Attending Unavailable RAUDEL MARQUEZ Primary Care Unavailable RAUDEL MARQUEZ Consulting Unavailable PROVIDER, UNKNOWN Consulting Unavailable PROVIDER, UNKNOWN Consulting Unavailable PROVIDER, UNKNOWN Consulting Unavailable PERI ROWELL MD Admitting UnavailPERI Mendez MD Attending UnavailPERI Mendez MD Primary Care UnavailRAUDEL Coronel Consulting Unavailable PROVIDER, UNKNOWN Consulting Unavailable PROVIDER, UNKNOWN Consulting Unavailable PROVIDER, UNKNOWN Consulting Unavailable Raudel Marquez MD Unavailable Dr. Titus Quinn MD Unavailable [phone] Dr. Peri Rwoell MD Unavailable Physical Therapy, Rakesh Kearney Unavailable Alexander PENG, Dr. Ford ([facility]) A Unavail able [facility] Unavailable True PENG., Dr. Tipton Unavailable [phone] Rob PENG, Dr. Madan Sow Unavailable [phone] Blake PENG, Dr. Chilo Brennan Unavailable Brabara GELLER, Dr. Encinas Unavailable Joyce PENG, Dr. Nick Koroma Unavailable Dr. Franci Middleton MD Unavailable Terri PENG, Dr. Voss ([facility]) Unavailable Anam PENG, Courtney Herman Unavailable Aiden TUNNEL FORM PLACING SUPERVISOR, Triny Unavailable Herminio TUNNEL FORM PLACING SUPERVISOR, Kym Herman Unavailable Unavailable García TUNNEL FORM PLACING SUPERVISOR, Mariann Unavailable Unavailable Nadira, Ramila C Unavailable Unavailable Nadira RN, Janine Jewell Unavailable Unavail able Yang TUNNEL FORM PLACING SUPERVISOR, Simona Unavailable Unavailable Altagracia HOUGH, Breann Soliman Unavailable Unavaila ble Marthemauro TUNNEL FORM PLACING SUPERVISOR, Thea Unavailable Unavailable Obey TUNNEL FORM PLACING SUPERVISOR, Eladio Unavailable Unavailable Alexander HOUGH, Keyla Unavailable Germaine HOUGH, Isa Y Unavailable Unavailable Mutersbaugh TUNNEL FORM PLACING SUPERVISOR, Susana K Unavailable Unavai tiffany Miles PA-C, Sara Sanabria Unavailable Yumiko TUNNEL FORM PLACING SUPERVISOR, Courtney Brennan Unavailable Unavailab le [place] TUNNEL FORM PLACING SUPERVISOR, Shelly Mortensen Unavailable Unavailab camilo Hunter MA, Simona Unavailable Unavailable Ashly Hansen Unavailable Unavailable Vess TUNNEL FORM PLACING SUPERVISOR, Neilee L Unavailable Unavailable Wengerd TUNNEL FORM PLACING SUPERVISOR, Stacy Unavailable Unavailabl e Ambreen TUNNEL FORM PLACING SUPERVISOR, Zuleima Leiva Unavailable Unavaila ble Zaugg TUNNEL FORM PLACING SUPERVISOR, Stella Unavailable Unavailable Unavailable Unavailable Medications Current Medications Medication Drug Class(es) Dates Sig (Normalized) Sig (Original) ascorbic acid 1000 mg oral tablet (8 sources) Vitamin C Completed/Discontinued Medications Medication Drug Class(es) Dates Sig (Normalized) Sig (Original) acetaminophen 325 mg / HYDROcodone bitartrate 5 mg oral tablet (4 sources) Opioid Agonist amoxicillin 500 mg oral capsule (4 sources) Penicillin-class Antibacterial Start: 11-08-2011 End: 11-18-2011 celecoxib 200 mg oral capsule (4 sources) Nonsteroidal Anti-inflammatory Drug Start: 05-29-2016 End: 08-02-2017 ciprofloxacin 250 mg oral tablet (4 sources) Quinolone Antimicrobial Start: 09-20-2020 End: 09-27-2020 cloNIDine hydrochloride 0.2 mg oral tablet (4 sources) Central alpha-2 Adrenergic Agonist Start: 04-09-2011 End: 04-09-2011 Copper Gluconate (4 sources) docusate sodium 100 mg oral capsule (4 sources) esomeprazole 40 mg delayed release oral capsule (4 sources) Proton Pump Inhibitor Start: 04-27-2014 End: 04-27-2014 fexofenadine hydrochloride 180 mg oral tablet (8 sources) Histamine-1 Receptor Antagonist Start: 10-09-2010 End: 03-12-2018 fluconazole 150 mg oral tablet (4 sources) Azole Antifungal Start: 11-08-2011 End: 11-09-2011 folic acid 1 mg oral tablet (4 sources) Start: 07-18-2015 End: 01-06-2019 gabapentin 100 mg oral capsule (16 sources) Anti-epileptic Agent Start: 08-15-2022 End: 09-24-2022 Problems Active Problems Problem Classification Problem Date Documented Da te Episodic/Chronic Administrative/social admission (4 sources) Issue of repeat prescriptions 09-20-2020 Episodic Allergic reactions (4 sources) Inflammatory dermatosis; Translations: [Dermatitis, unspecified] 09-20-2020 Episodic Anxiety disorders (4 sources) Anxiety; Translations: [Anxiety disorder, unspecified] 10-03-2023 Chronic Cancer of bladder (12 sources) Malignant tumor of urinary bladder; Translations: [Malignant neoplasm of bladder, unspecified] 03-20-2022 Chronic Cancer of bladder (12 sources) H/O: malignant neoplasm; Translations: [Personal history of malignant neoplasm of bladder] 10-03-2023 Episodic Cardiac dysrhythmias (8 sources) Cardiac arrhythmia; Translations: [Cardiac arrhythmia, unspecified] 09-20-2020 Chronic Conditions associated with dizziness or vertigo (4 sources) Loss of equilibrium; Translations: [Dizziness and giddiness] 04-01-2023 Episodic Diabetes mellitus with complications (8 sources) Disorder of kidney due to diabetes mellitus; Translations: [Type 2 diabetes mellitus with diabetic nephropathy] 10-03-2023 Chronic Diabetes mellitus without complication (20 sources) Type 2 diabetes mellitus; Translations: [Type 2 diabetes mellitus without complications] 10-03-2023 Chronic Disorders of lipid metabolism (4 sources) Hyperlipidemia; Translations: [Hyperlipidemia, unspecified] 10-03-2023 Chronic Essential hypertension (4 sources) Benign hypertension; Translations: [Essential (primary) hypertension] 10-03-2023 Chronic Genitourinary symptoms and ill-defined conditions (16 sources) Dysuria; Translations: [Dysuria] 09-20-2020 Episodic Heart valve disorders (8 sources) History of aortic valve replacement; Translations: [Presence of prosthetic heart valve] 12-04-2022 Chronic Heart valve disorders (4 sources) Heart murmur; Translations: [Cardiac murmur, unspecified] 09-20-2020 Episodic Immunizations and screening for infectious disease (20 sources) Need for prophylactic vaccination and inoculation against influenza; Translations: [Needs influenza immunization] 09-20-2020 Episodic Menopausal disorders (4 sources) Symptomatic menopausal or female climacteric states 09-20-2020 Chronic Mood disorders (4 sources) Recurrent major depressive episodes, mild ; Translations: [Major depressive disorder, recurrent, mild] 10-03-2023 Chronic Other aftercare (4 sources) Long-term (current) use of other medications 09-20-2020 Episodic Other connective tissue disease (4 sources) Biceps tendinitis; Translations: [Bicipital tendinitis, unspecified shoulder] 09-20-2020 Episodic Other connective tissue disease (4 sources) Cramp in lower limb; Translations: [Cramp and spasm] 09-20-2020 Episodic Other connective tissue disease (4 sources) Impingement syndrome of left shoulder region; Translations: [Impingement syndrome of left shoulder] 09-20-2020 Episodic Other diseases of bladder and urethra (4 sources) Overactive bladder; Translations: [Overactive bladder] 09-20-2020 Chronic Other gastrointestinal disorders (4 sources) History of bypass of stomach; 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] 10-03-2023 Episodic Other lower respiratory disease (4 sources) Hypoxemia; Translations: [Hypoxemia] 09-20-2020 Episodic Other nervous system disorders (4 sources) Numbness of foot ; Translations: [Anesthesia of skin] 09-20-2020 Episodic Other nutritional; endocrine; and metabolic disorders (4 sources) Body mass index 30+ - obesity; Translations: [Body mass index (BMI) 34.0-34.9, adult] 09-20-2020 Chronic Other screening for suspected conditions (not mental disorders or infectious disease) (20 sources) Screening status; Translations: [Encounter for screening for malignant neoplasm of colon] 09-20-2020 Episodic Other upper respiratory disease (4 sources) Allergic rhinitis; Translations: [Allergic rhinitis, unspecified] 09-20-2020 Chronic Other upper respiratory infections (4 sources) Acute sinusitis; Translations: [Acute sinusitis, unspecified] 09-20-2020 Episodic Residual codes; unclassified (4 sources) Obstructive sleep apnea syndrome; Translations: [Obstructive sleep apnea (adult) (pediatric)] 10-03-2023 Chronic Residual codes; unclassified (4 sources) History of lumbar laminectomy; Translations: [Other specified postprocedural states] 09-20-2020 Episodic Screening and history of mental health and substance abuse codes (4 sources) Patient encounter status; Translations: [Encounter for screening for depression] 09-20-2020 Episodic Spondylosis; intervertebral disc disorders; other back problems (4 sources) Spinal stenosis of lumbar region; Translations: [Spinal stenosis, lumbar region without neurogenic claudication] 09-20-2020 Episodic Syncope (4 sources) Near syncope; Translations: [Syncope and collapse] 09-20-2020 Episodic Thyroid disorders (20 sources) Hypothyroidism; Translations: [Hypothyroidism, unspecified] 10-03-2023 Chronic Unclassified (4 sources) 10-03-2023 Unclassified (4 sources) 10-03-2023 Unclassified (4 sources) 10-03-2023 Past or Other Problems Problem Classification Problem Date Documented Da te Episodic/Chronic Other connective tissue disease (3 sources) Repeated falls; Translations: [Repeated falls] Onset: 04-10-2023 Episodic Results Test Name Value Interpretation Reference Range Facil ity Vital Signs Date Time Vital Sign Value Performing Clinician Faci lity 10-03-2023 13:26-0400 Body height 165.1 cm Raudel Marquez MD Work Phone: [employer] 10-03-2023 13:26-0400 Body mass index (BMI) [Ratio] 31.78 kg/m2 Raudel Marquez MD Work Phone: [employer]; [employer] 10-03-2023 13:26-0400 Body surface area Derived from formula 1.94 m2 Raudel Marquez MD Work Phone: [employer] 10-03-2023 13:26-0400 Body weight 86.64 kg Raudel Marquez MD Work Phone: [email or web address] 10-03-2023 13:26-0400 Diastolic blood pressure 60 mm[Hg] Raudel Marquez MD Work Phone: [email or web address] 10-03-2023 13:26-0400 Heart rate 61 /min Raudel Marquez MD Work Phone: [email or web address] 10-03-2023 13:26-0400 Systolic blood pressure 132 mm[Hg] Raudel Marquez MD Work Phone: [employer] 05-13-2023 15:39-0400 Body height 165.1 cm [facility], [facility].; [employer] 05-13-2023 15:39-0400 Body mass index (BMI) [Ratio] 30.62 kg/m2 [facility] [place] [facility], [employer].; [employer] 05-13-2023 15:39-0400 Body surface area Derived from formula 1.91 m2 [facility] [employer] 05-13-2023 15:39-0400 Body temperature 98.4 [degF] [facility] [employer] 05-13-2023 15:39-0400 Body weight 83.46 kg Agnieszka Juan F [facility] [employer] 05-13-2023 15:39-0400 Diastolic blood pressure 76 mm[Hg] Agnieszka Juan F [email or web address] [employer] 05-13-2023 15:39-0400 Heart rate 66 /min Shelly Rogel [email or web address] [employer] 05-13-2023 15:39-0400 Systolic blood pressure 146 mm[Hg] Shelly Rogel [email or web address] [employer] 04-01-2023 11:44-0400 Body height 165.1 cm Raudel Marquez MD Work Phone: [email or web address] 04-01-2023 11:44-0400 Body mass index (BMI) [Ratio] 30.62 kg/m2 Raudel Marquez MD Work Phone: [email or web address] 04-01-2023 11:44-0400 Body surface area Derived from formula 1.91 m2 Raudel Marquez MD Work Phone: [email or web address] 04-01-2023 11:44-0400 Body weight 83.46 kg Raudel Marquez MD Work Phone: [employer] 04-01-2023 11:44-0400 Diastolic blood pressure 58 mm[Hg] Raudel Marquez MD Work Phone: [employer] 04-01-2023 11:44-0400 Heart rate 58 /min Raudel Marquez MD Work Phone: [employer], [employer] 04-01-2023 11:44-0400 Systolic blood pressure 130 mm[Hg] Raudel Marquez MD Work Phone: [employer] 02-13-2023 15:03-0400 Body weight 85.28 kg Eladio Barnhart LPN [email or web address] 02-13-2023 15:03-0400 Diastolic blood pressure 77 mm[Hg] Eladioshanae Barnhart DREW [facility], Inc.; [facility], [facility]. 02-13-2023 15:03-0400 Heart rate 59 /min Eladioshanae Barnhart TUNNEL FORM PLACING SUPERVISOR [facility], Inc.; [facility] 02-13-2023 15:03-0400 Inhaled oxygen concentration 20 % Eladio Obey [facility], Inc.; [facility] Inc[facility] 02-13-2023 15:03-0400 SaO2% (BldA) [Mass fraction] 98 % Eladioshanae Barnhart TUNNEL FORM PLACING SUPERVISOR [facility], Inc.; [facility] Inc[facility] 02-13-2023 15:03-0400 Systolic blood pressure 125 mm[Hg] Eladio Obeyrobyn RUSSELL [facility], Inc.; [facility] [employer] [facility], Inc[facility] 01-14-2023 14:03-0500 Body height 165.1 cm Shelly Rogel TUNNEL FORM PLACING SUPERVISOR [facility], Inc.; [facility] 01-14-2023 14:03-0500 Body mass index (BMI) [Ratio] 30.79 kg/m2 Shelly Rogel TUNNEL FORM PLACING SUPERVISOR [facility], Inc.; [facility], [facility]. 01-14-2023 14:03-0500 Body surface area Derived from formula 1.91 m2 Shelly Rogel TUNNEL FORM PLACING SUPERVISOR [facility], [facility].; [employer] [facility], [facility]. 01-14-2023 14:03-0500 Body weight 83.92 kg Shelly Rogel TUNNEL FORM PLACING SUPERVISOR [facility], Inc.; [employer] [facility], Inc[facility] 01-14-2023 14:03-0500 Diastolic blood pressure 62 mm[Hg] Shelly Rogel TUNNEL FORM PLACING SUPERVISOR [facility], Inc.; [employer] [facility], [facility]. 01-14-2023 14:03-0500 Heart rate 85 /min Shelly Rogel TUNNEL FORM PLACING SUPERVISOR [facility].; [employer] [facility], Inc[facility] 01-14-2023 14:03-0500 Systolic blood pressure 110 mm[Hg] Shelly Rogel TUNNEL FORM PLACING SUPERVISOR [facility].; [employer] [facility], Inc[facility] 12-04-2022 11:38-0500 Body height 165.1 cm Simona Hunter MA [facility], [facility].; [employer] [facility], [employer] 12-04-2022 11:38-0500 Body mass index (BMI) [Ratio] 31.45 kg/m2 Simona Hunter MA [facility], [facility].; [employer] [facility], Inc[facility] 12-04-2022 11:38-0500 Body surface area Derived from formula 1.93 m2 Simona Hunter MA [facility], [facility].; [employer] [facility], [employer] 12-04-2022 11:38-0500 Body weight 85.73 kg Simona Hunter MA [facility], [facility].; [employer] [facility], [facility]. 12-04-2022 11:38-0500 Diastolic blood pressure 50 mm[Hg] Simona Hunter MA [facility], [facility].; [employer] 12-04-2022 11:38-0500 Heart rate 65 /min Simona Hunter MA [facility], [facility].; [employer] [facility], [facility]. 12-04-2022 11:38-0500 Inhaled oxygen concentration 20 % Simona Hunter MA [facility], [facility].; [employer] [facility], [facility]. 12-04-2022 11:38-0500 SaO2% (BldA) [Mass fraction] 97 % Simona Hunter MA [facility], [facility].; [employer] 12-04-2022 11:38-0500 Systolic blood pressure 115 mm[Hg] Simona Hunter MA [facility], [facility].; [employer] 09-24-2022 14:05-0400 Body height 165.1 cm [facility], [facility].; [employer], [employer] 09-24-2022 14:05-0400 Body mass index (BMI) [Ratio] 32.12 kg/m2 [facility], [facility].; [employer] 09-24-2022 14:05-0400 Body surface area Derived from formula 1.95 m2 [facility], [facility].; [employer], [employer] 09-24-2022 14:05-0400 Body weight 87.54 kg Shelly Rogel [facility] [employer] [facility], [facility].; [employer] 09-24-2022 14:05-0400 Diastolic blood pressure 67 mm[Hg] Shelly Rogel [facility], [facility].; [employer] 09-24-2022 14:05-0400 Heart rate 118 /min AgnieszkaBalbina Rogel [facility] [employer] [facility], [facility].; [employer] 09-24-2022 14:05-0400 Systolic blood pressure 130 mm[Hg] Shelly Rogel [facility] [employer] [facility], Inc.; [employer] 03-20-2022 09:37-0400 Body height 165.1 cm Shelly Rogel [facility] [employer] [facility], [facility].; [employer] 03-20-2022 09:37-0400 Body mass index (BMI) [Ratio] 34.28 kg/m2 Agnieszka Juan F [facility] [employer] [facility], Inc.; [employer] 03-20-2022 09:37-0400 Body surface area Derived from formula 2 m2 [facility] Juan F [facility] [employer] [facility], Inc.; [employer] 03-20-2022 09:37-0400 Body weight 93.44 kg Shelly Rogel [facility] [employer] [facility], [facility].; [employer] 03-20-2022 09:37-0400 Diastolic blood pressure 57 mm[Hg] Shelly Rogel [facility] [employer] [facility], [facility].; [employer] 03-20-2022 09:37-0400 Heart rate 85 /min Agnieszka Stuckey [facility] [employer] [facility], [facility].; [employer] 03-20-2022 09:37-0400 Systolic blood pressure 105 mm[Hg] AgnieszkaBalbina Rogel [facility] [employer] [facility], [facility].; [employer] 08-03-2021 13:59-0400 Body height 165.1 cm Simona Soria [facility] [employer] [facility], [facility].; [employer] 08-03-2021 13:59-0400 Body mass index (BMI) [Ratio] 35.61 kg/m2 Simona Soria LPN [employer] [facility], [facility].; [employer] 08-03-2021 13:59-0400 Body surface area Derived from formula 2.04 m2 Simona Soria LPN [employer] [facility], Inc.; [employer] 08-03-2021 13:59-0400 Body weight 97.07 kg Simona Soria LPN [employer] [facility], [facility].; [employer], [facility]. 08-03-2021 13:59-0400 Diastolic blood pressure 57 mm[Hg] Simona Soria LPN [employer] [facility].; [employer], [facility]. 08-03-2021 13:59-0400 Heart rate 68 /min Simona Soria LPN [employer] [facility], [facility].; [employer] 08-03-2021 13:59-0400 Systolic blood pressure 133 mm[Hg] Simona Soria LPN [email or web address] [facility].; [employer], [employer] 01-31-2021 11:40-0500 Body height 167.64 cm Raudel Marquez MD Work Phone: [employer] 01-31-2021 11:40-0500 Body mass index (BMI) [Ratio] 34.7 kg/m2 Raudel Marquez MD Work Phone: [email or web address] 01-31-2021 11:40-0500 Body surface area Derived from formula 2.06 m2 Raudel Marquez MD Work Phone: [email or web address] 01-31-2021 11:40-0500 Body weight 97.52 kg Raudel Marquez MD Work Phone: [email or web address] 01-31-2021 11:40-0500 Diastolic blood pressure 60 mm[Hg] Raudel Marquez MD Work Phone: [email or web address] 01-31-2021 11:40-0500 Heart rate 56 /min Raudel Marquez MD Work Phone: [email or web address] 01-31-2021 11:40-0500 Systolic blood pressure 132 mm[Hg] Raudel Marquez MD Work Phone: [email or web address] 09-20-2020 14:37-0400 Body temperature 97.8 [degF] Stella Zaugg TUNNEL FORM PLACING SUPERVISOR [email or web address] 09-20-2020 14:37-0400 Diastolic blood pressure 64 mm[Hg] Stella Zaugg TUNNEL FORM PLACING SUPERVISOR [employer] 09-20-2020 14:37-0400 Heart rate 81 /min Stella Zaugg TUNNEL FORM PLACING SUPERVISOR [employer] 09-20-2020 14:37-0400 Systolic blood pressure 151 mm[Hg] Stella Zaugg TUNNEL FORM PLACING SUPERVISOR [employer] 07-25-2020 13:58-0400 Body height 167.64 cm Breann Frias RN [email or web address] 07-25-2020 13:58-0400 Body mass index (BMI) [Ratio] 34.38 kg/m2 Breann Frias RN [email or web address] 07-25-2020 13:58-0400 Body surface area Derived from formula 2.05 m2 Breann Frias RN [employer], [employer] 07-25-2020 13:58-0400 Body weight 96.62 kg Breann Frias RN [employer], [employer] 07-25-2020 13:58-0400 Diastolic blood pressure 63 mm[Hg] Breann Frias RN [email or web address] 07-25-2020 13:58-0400 Heart rate 79 /min Breann Frias RN [facility], [facility].; [employer] 07-25-2020 13:58-0400 Systolic blood pressure 125 mm[Hg] Breann Frias RN [facility], [facility].; [employer] 06-14-2020 11:54-0400 Body height 167.64 cm Shelly Rogel [facility], Inc.; [employer] 06-14-2020 11:54-0400 Body mass index (BMI) [Ratio] 34.86 kg/m2 Agnieszka Stuckey [facility] [employer] [facility], Inc.; [employer] 06-14-2020 11:54-0400 Body surface area Derived from formula 2.07 m2 [facility] Juan F [facility] [employer] [facility], Inc.; [employer] 06-14-2020 11:54-0400 Body temperature 96.5 [degF] [facility] Juan F [facility] [employer] [facility], Inc.; [employer] 06-14-2020 11:54-0400 Body weight 97.98 kg Shelly Rogel [facility], Inc.; [employer] 06-14-2020 11:54-0400 Diastolic blood pressure 75 mm[Hg] Agnieszka Stuckey [facility] [employer] [facility], Inc.; [employer] 06-14-2020 11:54-0400 Heart rate 69 /min [facility] [employer] [facility], Inc.; [employer] 06-14-2020 11:54-0400 Systolic blood pressure 123 mm[Hg] Shelly Rogel [facility], Inc.; [employer] 01-20-2020 13:23-0500 Body height 167.64 cm Raudel Marquez MD Work Phone: [email or web address] 01-20-2020 13:23-0500 Body mass index (BMI) [Ratio] 33.57 kg/m2 Raudel Marquez MD Work Phone: [email or web address] 01-20-2020 13:23-0500 Body surface area Derived from formula 2.03 m2 Raudel Marquez MD Work Phone: [employer]. 01-20-2020 13:23-0500 Body weight 94.35 kg Raudel Marquez MD Work Phone: [employer].; [employer]. 01-20-2020 13:23-0500 Diastolic blood pressure 66 mm[Hg] Raudel Marquez MD Work Phone: [employer].; [employer]. 01-20-2020 13:23-0500 Heart rate 60 /min Raudel Marquez MD Work Phone: [employer].; [employer]. 01-20-2020 13:23-0500 Systolic blood pressure 132 mm[Hg] Raudel Marquez MD Work Phone: [employer].; [employer]. 09-21-2019 09:05-0400 Body height 167.64 cm Breann Frias RN [employer].; [employer]. 09-21-2019 09:05-0400 Body mass index (BMI) [Ratio] 33.89 kg/m2 Breann Frias RN [employer] 09-21-2019 09:05-0400 Body surface area Derived from formula 2.04 m2 Breann Frias RN [employer].; [employer]. 09-21-2019 09:05-0400 Body weight 95.26 kg Breann Frias RN [employer].; [employer]. 09-21-2019 09:05-0400 Diastolic blood pressure 75 mm[Hg] Breann Frias RN [employer].; [employer] 09-21-2019 09:05-0400 Heart rate 73 /min Breann Frias RN [employer].; [employer]. 09-21-2019 09:05-0400 Systolic blood pressure 122 mm[Hg] Breann Frias RN [employer] 07-20-2019 13:20-0400 Body height 167.64 cm Courtney Anu Calderon [facility] [employer] 07-20-2019 13:20-0400 Body mass index (BMI) [Ratio] 34.22 kg/m2 Courtney Anu Calderon [facility] [employer] 07-20-2019 13:20-0400 Body surface area Derived from formula 2.05 m2 Courtney Anu Yumiko LPN [employer] 07-20-2019 13:20-0400 Body weight 96.16 kg Courtney Brennan Yumiko [facility] [employer] 07-20-2019 13:20-0400 Diastolic blood pressure 74 mm[Hg] Courtneyjanny Calderon T[employer]ACING SUPERVISOR [employer] 07-20-2019 13:20-0400 Heart rate 62 /min Courtney Anu Calderon [facility] [employer] 07-20-2019 13:20-0400 Systolic blood pressure 121 mm[Hg] Courtney Anu Calderon T[employer]M [employer]ACING SUPERVISOR [employer] 01-06-2019 11:12-0500 Body height 167.64 cm Agnieszka Juan F [employer]AC[employer] SUPERVISOR [employer] 01-06-2019 11:12-0500 Body mass index (BMI) [Ratio] 34.54 kg/m2 Agnieszka Juan F [employer]ACING SUPERVISOR [employer] 01-06-2019 11:12-0500 Body surface area Derived from formula 2.06 m2 [facility] [employer] 01-06-2019 11:12-0500 Body weight 97.07 kg Agnieszka Juan F [facility] [employer] 01-06-2019 11:12-0500 Diastolic blood pressure 76 mm[Hg] Shelly Rogel T[employer]AC[employer] SUPERVISOR [employer] [facility], Inc.; [employer] 01-06-2019 11:12-0500 Heart rate 71 /min Shelly Rogel T[employer]ACING SUPERVISOR [employer] [facility], Inc.; [employer] 01-06-2019 11:12-0500 Systolic blood pressure 120 mm[Hg] Shelly Rogel TUNNEL [employer]M [employer]ACING SUPERVISOR [employer] 07-02-2018 08:10-0400 Body height 167.64 cm Shelly Rogel T[employer]ACING SUPERVISOR [employer] [facility], Inc.; [employer] 07-02-2018 08:10-0400 Body mass index (BMI) [Ratio] 34.86 kg/m2 Shelly Rogel T[employer]ACING SUPERVISOR [employer] 07-02-2018 08:10-0400 Body surface area Derived from formula 2.07 m2 Shelly Rogel T[employer]AC[employer] SUPERVISOR [employer] [facility], Inc.; [employer], [employer] 07-02-2018 08:10-0400 Body weight 97.98 kg Shelly Rogel T[employer]NEL [employer]M [employer]ACING SUPERVISOR [employer] 07-02-2018 08:10-0400 Diastolic blood pressure 57 mm[Hg] Shelly Rogel T[employer]M [employer]ACING SUPERVISOR [employer] 07-02-2018 08:10-0400 Heart rate 65 /min Shelly Rogel T[employer]M [employer]ACING SUPERVISOR [employer] 07-02-2018 08:10-0400 Systolic blood pressure 120 mm[Hg] Shelly Rogel T[employer]M [employer]ACING SUPERVISOR [employer] 03-12-2018 08:59-0400 Body height 167.64 cm Shelly Rogel T[employer]ACING SUPERVISOR [employer] 03-12-2018 08:59-0400 Body mass index (BMI) [Ratio] 34.06 kg/m2 Agnieszka Juan Fthea RUSSELL [employer] 03-12-2018 08:59-0400 Body surface area Derived from formula 2.05 m2 Shelly Rogel T[employer]ACING SUPERVISOR [employer] [facility], Inc.; [employer], [employer] 03-12-2018 08:59-0400 Body weight 95.71 kg Shelly Rogel T[employer]NEL [employer]M [employer]ACING SUPERVISOR [employer], [employer] 03-12-2018 08:59-0400 Diastolic blood pressure 82 mm[Hg] Shelly Rogel [facility] [employer], [employer] 03-12-2018 08:59-0400 Heart rate 73 /min Shelly Rogel TUNNEL [employer]M [employer]ACING SUPERVISOR [employer] [employer], [employer].; [employer], [employer] 03-12-2018 08:59-0400 Systolic blood pressure 165 mm[Hg] Shelly Rogel T[employer]ACING SUPERVISOR [employer] 11-11-2017 14:11-0500 Body height 167.64 cm Mariann García LPN [facility] [employer], [employer] 11-11-2017 14:11-0500 Body mass index (BMI) [Ratio] 33.41 kg/m2 Mariann García LPN [employer] [facility], Inc.; [employer], [employer] 11-11-2017 14:11-0500 Body surface area Derived from formula 2.03 m2 Mariann García LPN [employer] [facility], [facility].; [employer], [employer] 11-11-2017 14:11-0500 Body weight 93.9 kg Mariann García LPN [facility] [employer], [employer] 11-11-2017 14:11-0500 Diastolic blood pressure 69 mm[Hg] Mariann García LPN [facility] [employer], [employer], [employer] 11-11-2017 14:11-0500 Heart rate 71 /min Mariann García LPN [facility] [employer], [employer], [employer] 11-11-2017 14:11-0500 Inhaled oxygen concentration 20 % Mariann García T[employer]NEL [employer]ACING SUPERVISOR [employer] [facility], Inc.; [employer], [employer]. 11-11-2017 14:11-0500 SaO2% (BldA) [Mass fraction] 97 % Mariann García LPN [employer], [employer].; [employer]. 11-11-2017 14:11-0500 Systolic blood pressure 138 mm[Hg] Mariann García LPN [employer] 08-02-2017 13:39-0400 Body weight 95.26 kg Mariann García LPN [employer], [employer]. 08-02-2017 13:39-0400 Diastolic blood pressure 61 mm[Hg] Mariann García LPN [employer], [employer]. 08-02-2017 13:39-0400 Heart rate 72 /min Mariann García LPN [employer], [employer]. 08-02-2017 13:39-0400 Systolic blood pressure 101 mm[Hg] Mariann García LPN [employer]. 12-27-2016 11:07-0500 Body height 167.64 cm Susana Juanjose Caty RUSSELL [employer]. 12-27-2016 11:07-0500 Body mass index (BMI) [Ratio] 33.25 kg/m2 Susanaabeba Byrne TUNNEL [employer]M PLACING SUPERVISOR [employer], [employer]. 12-27-2016 11:07-0500 Body surface area Derived from formula 2.03 m2 Susana Salgadoersbatang RUSSELL [employer], [employer]. 12-27-2016 11:07-0500 Body weight 93.44 kg Susana K Mutersbaugh TUNNEL FORM PLACING SUPERVISOR [employer], [employer].; [employer]. 12-27-2016 11:07-0500 Diastolic blood pressure 70 mm[Hg] Susana K Mutersbaugh DREW [employer]. 12-27-2016 11:07-0500 Heart rate 66 /min Susana K Mutersbaugh TUNNEL FORM PLACING SUPERVISOR [employer]. 12-27-2016 11:07-0500 Systolic blood pressure 119 mm[Hg] Susana Byrne LPN [facility] [email or web address] 06-12-2016 13:27-0400 Body height 167.64 cm Breann Frias RN [facility].; [employer] 06-12-2016 13:27-0400 Body mass index (BMI) [Ratio] 31.63 kg/m2 Breann Frias RN [place] [employer] [facility] Inc.; [employer]. 06-12-2016 13:27-0400 Body surface area Derived from formula 1.98 m2 Breann Frias RN [employer].; [employer], [employer]. 06-12-2016 13:27-0400 Body weight 88.91 kg Breann Frias RN [employer] [facility].; [employer]. 06-12-2016 13:27-0400 Diastolic blood pressure 58 mm[Hg] Breann Frias RN [employer] [facility].; [employer]. 06-12-2016 13:27-0400 Heart rate 88 /min Breann Frias RN [employer].; [employer]. 06-12-2016 13:27-0400 Systolic blood pressure 110 mm[Hg] Breann Frias RN [employer].; [employer], [employer]. 05-08-2016 12:49-0400 Body height 167.64 cm Breann Frias RN [employer] [facility].; [employer]. 05-08-2016 12:49-0400 Body mass index (BMI) [Ratio] 31.47 kg/m2 Breann Frias RN [employer].; [employer]. 05-08-2016 12:49-0400 Body surface area Derived from formula 1.98 m2 Breann Frias RN [email or web address].; [employer]. 05-08-2016 12:49-0400 Body weight 88.45 kg Breann Frias RN [email or web address]. 05-08-2016 12:49-0400 Diastolic blood pressure 69 mm[Hg] Breann Frias RN [email or web address]. 05-08-2016 12:49-0400 Heart rate 62 /min Breann Frias RN [email or web address]. 05-08-2016 12:49-0400 Inhaled oxygen concentration 20 % Breann Frias RN [email or web address]. 05-08-2016 12:49-0400 SaO2% (BldA) [Mass fraction] 96 % Breann Frias RN [email or web address]. 05-08-2016 12:49-0400 Systolic blood pressure 123 mm[Hg] Berann Frias RN [email or web address]. 04-07-2016 17:31-0400 Body temperature 100.3 [degF] Courtney Mendieta MD Work Phone: [email or web address]. 04-07-2016 17:31-0400 Diastolic blood pressure 66 mm[Hg] Courtney Mendieta MD Work Phone: [email or web address]. 04-07-2016 17:31-0400 Heart rate 76 /min Courtney Mendieta MD Work Phone: [email or web address]. 04-07-2016 17:31-0400 Inhaled oxygen concentration 20 % Courtney Mendieta MD Work Phone: [employer].; [employer]. 04-07-2016 17:31-0400 Respiratory rate 18 /min Courtney Mendieta MD Work Phone: [email or web address]. 04-07-2016 17:31-0400 SaO2% (BldA) [Mass fraction] 97 % Courtney Mendieta MD Work Phone: [employer].; [employer]. 04-07-2016 17:31-0400 Systolic blood pressure 124 mm[Hg] Courtney Mendieta MD Work Phone: [employer].; [employer] 03-13-2016 12:11-0400 Body height 168.91 cm Breann Frias RN [employer].; [employer] 03-13-2016 12:11-0400 Body mass index (BMI) [Ratio] 33.86 kg/m2 Breann Frias RN [employer].; [employer], [employer]. 03-13-2016 12:11-0400 Body surface area Derived from formula 2.07 m2 Breann Frias RN [employer].; [employer] 03-13-2016 12:11-0400 Body weight 96.62 kg Breann Frias RN [employer].; [employer]. 03-13-2016 12:11-0400 Diastolic blood pressure 74 mm[Hg] Breann Frias RN [employer].; [employer], [employer]. 03-13-2016 12:11-0400 Heart rate 68 /min Breann Frias RN [employer].; [employer]. 03-13-2016 12:11-0400 Systolic blood pressure 131 mm[Hg] Breann Frias RN [employer].; [employer]. 12-09-2015 09:03-0500 Body height 170.18 cm Breann Frias RN [employer].; [employer], [employer] 12-09-2015 09:03-0500 Body mass index (BMI) [Ratio] 31.79 kg/m2 Breann Frias RN [employer].; [employer] 12-09-2015 09:03-0500 Body surface area Derived from formula 2.04 m2 Breann Frias RN [employer].; [employer]. 12-09-2015 09:03-0500 Body weight 92.08 kg Breann Frias RN [employer] 12-09-2015 09:03-0500 Diastolic blood pressure 72 mm[Hg] Breann Frias RN [employer] 12-09-2015 09:03-0500 Heart rate 74 /min Breann Frias RN [employer] 12-09-2015 09:03-0500 Systolic blood pressure 136 mm[Hg] Breann Frias RN [employer] 09-02-2015 14:10-0400 Body height 171.45 cm Zuleima Crook LPN [employer] 09-02-2015 14:10-0400 Body mass index (BMI) [Ratio] 31.79 kg/m2 Zuleima Crook LPN [employer] 09-02-2015 14:10-0400 Body surface area Derived from formula 2.06 m2 Zuleima Crook LPN [employer] 09-02-2015 14:10-0400 Body weight 93.44 kg Zuleima Crook LPN [employer] 09-02-2015 14:10-0400 Diastolic blood pressure 66 mm[Hg] Zuleima Crook LPN [employer] 09-02-2015 14:10-0400 Heart rate 57 /min Zuleima Crook LPN [employer] 09-02-2015 14:10-0400 Systolic blood pressure 128 mm[Hg] Zuleima Crook LPN [employer] 06-16-2015 13:11-0400 Body height 167.64 cm Triny Wolfe LPN Work Phone: [email or web address] 06-16-2015 13:11-0400 Body mass index (BMI) [Ratio] 31.47 kg/m2 Triny Aiden T[employer]NEL [employer]M PLACING SUPERVISOR Work Phone: [employer].; [employer]. 06-16-2015 13:11-0400 Body surface area Derived from formula 1.98 m2 Triny Aiden TUNNEL FORM PLACING SUPERVISOR Work Phone: [employer].; [employer]. 06-16-2015 13:11-0400 Body weight 88.45 kg Trinycalin Brookey TUNNEL FORM PLACING SUPERVISOR Work Phone: [employer].; [employer]. 06-16-2015 13:11-0400 Diastolic blood pressure 68 mm[Hg] Triny Aiden TUNNEL FORM PLACING SUPERVISOR Work Phone: [employer].; [employer]. 06-16-2015 13:11-0400 Heart rate 8 /min Triny Aiden TUNNEL FORM PLACING SUPERVISOR Work Phone: [employer].; [employer]. 06-16-2015 13:11-0400 Systolic blood pressure 112 mm[Hg] Triny Brookey TUNNEL FORM PLACING SUPERVISOR Work Phone: [employer].; [employer]. 09-27-2014 14:08-0400 Body height 167.64 cm Keyla Munoz RN Work Phone: [employer].; [employer]. 09-27-2014 14:08-0400 Body mass index (BMI) [Ratio] 30.18 kg/m2 Keyla Munoz RN Work Phone: [employer].; [employer]. 09-27-2014 14:08-0400 Body surface area Derived from formula 1.94 m2 Keyla Munoz RN Work Phone: [employer].; [employer]. 09-27-2014 14:08-0400 Body weight 84.82 kg Keyla Munoz RN Work Phone: [employer].; [employer]. 09-27-2014 14:08-0400 Diastolic blood pressure 67 mm[Hg] Keyla Munoz RN Work Phone: [email or web address] 09-27-2014 14:08-0400 Heart rate 69 /min Keyla Munoz RN Work Phone: [email or web address] 09-27-2014 14:08-0400 Systolic blood pressure 111 mm[Hg] Keyla Munoz RN Work Phone: [email or web address].; [employer] 06-24-2014 15:10-0400 Body height 167.64 cm Keyla Munoz RN Work Phone: [email or web address] 06-24-2014 15:10-0400 Body mass index (BMI) [Ratio] 30.18 kg/m2 Keyal Munoz RN Work Phone: [email or web address] 06-24-2014 15:10-0400 Body surface area Derived from formula 1.94 m2 Keyla Munoz RN Work Phone: [email or web address].; [employer] 06-24-2014 15:10-0400 Body weight 84.82 kg Keyla Munoz RN Work Phone: [email or web address] 06-24-2014 15:10-0400 Diastolic blood pressure 64 mm[Hg] Keyla Munoz RN Work Phone: [email or web address].; [employer]. 06-24-2014 15:10-0400 Heart rate 65 /min Keyla Munoz RN Work Phone: [email or web address] 06-24-2014 15:10-0400 Systolic blood pressure 128 mm[Hg] Keyla Munoz RN Work Phone: [email or web address].; [employer]. 04-27-2014 15:52-0400 Body height 167.64 cm Keyla Munoz RN Work Phone: [employer].; [employer] 04-27-2014 15:52-0400 Body mass index (BMI) [Ratio] 28.73 kg/m2 Keyla Munoz RN Work Phone: [email or web address] 04-27-2014 15:52-0400 Body surface area Derived from formula 1.9 m2 Keyla Munoz RN Work Phone: [employer].; [employer]. 04-27-2014 15:52-0400 Body weight 80.74 kg Keyla Munoz RN Work Phone: [employer].; [employer]. 04-27-2014 15:52-0400 Diastolic blood pressure 69 mm[Hg] Keyla Munoz RN Work Phone: [email or web address]. 04-27-2014 15:52-0400 Heart rate 100 /min Keyla Munoz RN Work Phone: [employer].; [employer]. 04-27-2014 15:52-0400 Systolic blood pressure 123 mm[Hg] Keyla Munoz RN Work Phone: [employer].; [employer]. 01-28-2014 14:26-0500 Body height 167.64 cm Keyla Munoz RN Work Phone: [employer].; [employer]. 01-28-2014 14:26-0500 Body mass index (BMI) [Ratio] 28.25 kg/m2 Keyla Munoz RN Work Phone: [employer].; [employer] 01-28-2014 14:26-0500 Body surface area Derived from formula 1.89 m2 Keyla Munoz RN Work Phone: [employer].; [employer]. 01-28-2014 14:26-0500 Body weight 79.38 kg Keyla Munoz RN Work Phone: [email or web address]. 01-28-2014 14:26-0500 Diastolic blood pressure 64 mm[Hg] Keyla Munoz RN Work Phone: [email or web address]. 01-28-2014 14:26-0500 Heart rate 62 /min Keyla Munoz RN Work Phone: [employer].; [employer]. 01-28-2014 14:26-0500 Systolic blood pressure 113 mm[Hg] Keyla Munoz RN Work Phone: [email or web address]. 10-15-2013 15:43-0500 Body height 167.64 cm Keyla Munoz RN Work Phone: [employer].; [employer]. 10-15-2013 15:43-0500 Body mass index (BMI) [Ratio] 29.86 kg/m2 Keyla Munoz RN Work Phone: [employer].; [employer]. 10-15-2013 15:43-0500 Body surface area Derived from formula 1.94 m2 Keyla Munoz RN Work Phone: [employer].; [employer]. 10-15-2013 15:43-0500 Body weight 83.92 kg Keyla Munoz RN Work Phone: [employer].; [employer]. 10-15-2013 15:43-0500 Diastolic blood pressure 59 mm[Hg] Keyla Munoz RN Work Phone: [employer].; [employer]. 10-15-2013 15:43-0500 Heart rate 62 /min Keyla Munoz RN Work Phone: [employer].; [employer]. 10-15-2013 15:43-0500 Systolic blood pressure 149 mm[Hg] Keyla Munoz RN Work Phone: [email or web address] 06-11-2013 14:26-0400 Body height 167.64 cm Keyla Munoz RN Work Phone: [email or web address].; [employer] 06-11-2013 14:26-0400 Body mass index (BMI) [Ratio] 29.05 kg/m2 Keyla Munoz RN Work Phone: [email or web address] 06-11-2013 14:26-0400 Body surface area Derived from formula 1.91 m2 Keyla Munoz RN Work Phone: [email or web address] 06-11-2013 14:26-0400 Body weight 81.65 kg Keyla Munoz RN Work Phone: [email or web address].; [employer]. 06-11-2013 14:26-0400 Diastolic blood pressure 69 mm[Hg] Keyla Munoz RN Work Phone: [email or web address].; [employer]. 06-11-2013 14:26-0400 Heart rate 63 /min Keyla Munoz RN Work Phone: [email or web address].; [employer] 06-11-2013 14:26-0400 Systolic blood pressure 139 mm[Hg] Keyla Munoz RN Work Phone: [email or web address] 03-03-2013 14:30-0400 Body height 167.64 cm [facility] Work Phone: [employer].; [employer] 03-03-2013 14:30-0400 Body mass index (BMI) [Ratio] 29.21 kg/m2 [facility] Work Phone: [email or web address].; [employer]. 03-03-2013 14:30-0400 Body surface area Derived from formula 1.92 m2 Triny Aiden TUNNEL FORM PLACING SUPERVISOR Work Phone: [employer].; [employer] 03-03-2013 14:30-0400 Body weight 82.1 kg Triny Aiden TUNNEL FORM PLACING SUPERVISOR Work Phone: [employer].; [employer] 03-03-2013 14:30-0400 Diastolic blood pressure 61 mm[Hg] Triny Aiden TUNNEL FORM PLACING SUPERVISOR Work Phone: [employer].; [employer] 03-03-2013 14:30-0400 Heart rate 55 /min Triny Aiden TUNNEL FORM PLACING SUPERVISOR Work Phone: [employer].; [employer] 03-03-2013 14:30-0400 Systolic blood pressure 125 mm[Hg] Triny Aiden TUNNEL FORM PLACING SUPERVISOR Work Phone: [employer].; [employer] 12-05-2012 11:23-0500 Body height 167.64 cm Keyla Munoz RN Work Phone: [employer].; [employer] 12-05-2012 11:23-0500 Body mass index (BMI) [Ratio] 29.38 kg/m2 Keyla Munoz RN Work Phone: [employer].; [employer]. 12-05-2012 11:23-0500 Body surface area Derived from formula 1.92 m2 Keyla Munoz RN Work Phone: [employer].; [employer]. 12-05-2012 11:23-0500 Body weight 82.56 kg Keyla Munoz RN Work Phone: [employer].; [employer] 12-05-2012 11:23-0500 Diastolic blood pressure 58 mm[Hg] Keyla Munoz RN Work Phone: [employer].; [employer] 12-05-2012 11:23-0500 Heart rate 60 /min Keyla Munoz RN Work Phone: [email or web address]. 12-05-2012 11:23-0500 Systolic blood pressure 115 mm[Hg] Keyla Munoz RN Work Phone: [email or web address].; [employer] 11-03-2012 14:48-0500 Body height 167.64 cm Neilee L Vess TUNNEL FORM PLACING SUPERVISOR [email or web address], [employer]. 11-03-2012 14:48-0500 Body mass index (BMI) [Ratio] 29.21 kg/m2 Neilee L Vess TUNNEL FORM PLACING SUPERVISOR [employer], [employer]. 11-03-2012 14:48-0500 Body surface area Derived from formula 1.92 m2 Neilee L Vess TUNNEL FORM PLACING SUPERVISOR [employer], [employer]. 11-03-2012 14:48-0500 Body weight 82.1 kg Neilee L Vess TUNNEL FORM PLACING SUPERVISOR [email or web address], [employer]. 11-03-2012 14:48-0500 Diastolic blood pressure 73 mm[Hg] Neilee L Vess TUNNEL FORM PLACING SUPERVISOR [email or web address], [employer]. 11-03-2012 14:48-0500 Heart rate 77 /min Neilee L Vess TUNNEL FORM PLACING SUPERVISOR [employer], [employer]. 11-03-2012 14:48-0500 Systolic blood pressure 122 mm[Hg] Neilee L Vess TUNNEL FORM PLACING SUPERVISOR [email or web address], [employer]. 09-15-2012 10:04-0400 Body height 167.64 cm Neilee L Vess TUNNEL FORM PLACING SUPERVISOR [employer], [employer].; [employer], [employer] 09-15-2012 10:04-0400 Body mass index (BMI) [Ratio] 30.34 kg/m2 Neilee L Vess TUNNEL FORM PLACING SUPERVISOR [employer], [employer]. 09-15-2012 10:04-0400 Body surface area Derived from formula 1.95 m2 Neilee L Vess TUNNEL FORM PLACING SUPERVISOR [email or web address].; [employer]. 09-15-2012 10:04-0400 Body weight 85.28 kg Neilee L Vess TUNNEL FORM PLACING SUPERVISOR [email or web address].; [employer]. 09-15-2012 10:04-0400 Diastolic blood pressure 73 mm[Hg] Neilee L Vess TUNNEL FORM PLACING SUPERVISOR [email or web address].; [employer]. 09-15-2012 10:04-0400 Heart rate 81 /min Neilee L Vess TUNNEL FORM PLACING SUPERVISOR [email or web address].; [email or web address] 09-15-2012 10:04-0400 Systolic blood pressure 122 mm[Hg] Neilee L Vess TUNNEL FORM PLACING SUPERVISOR [email or web address].; [employer]. 08-19-2012 12:57-0400 Body height 167.64 cm Courtney Mendieta MD Work Phone: [email or web address].; [employer]. 08-19-2012 12:57-0400 Body mass index (BMI) [Ratio] 30.34 kg/m2 Courtney Mendieta MD Work Phone: [email or web address].; [employer]. 08-19-2012 12:57-0400 Body surface area Derived from formula 1.95 m2 Courtney Mendieta MD Work Phone: [employer].; [employer]. 08-19-2012 12:57-0400 Body weight 85.28 kg Courtney Mendieta MD Work Phone: [email or web address]. 08-19-2012 12:57-0400 Diastolic blood pressure 76 mm[Hg] Courtney Mendieta MD Work Phone: [employer] 08-19-2012 12:57-0400 Heart rate 71 /min Courtney Mendieta MD Work Phone: [employer] 08-19-2012 12:57-0400 Systolic blood pressure 130 mm[Hg] Cuortney Mendieta MD Work Phone: [email or web address] 05-20-2012 13:17-0400 Body height 167.64 cm Keyla Munoz RN Work Phone: [email or web address] 05-20-2012 13:17-0400 Body mass index (BMI) [Ratio] 33.25 kg/m2 Keyla Munoz RN Work Phone: [email or web address] 05-20-2012 13:17-0400 Body surface area Derived from formula 2.03 m2 Keyla Munoz RN Work Phone: [email or web address] 05-20-2012 13:17-0400 Body weight 93.44 kg Keyla Munoz RN Work Phone: [email or web address] 05-20-2012 13:17-0400 Diastolic blood pressure 73 mm[Hg] Keyla Munoz RN Work Phone: [email or web address] 05-20-2012 13:17-0400 Heart rate 66 /min Keyla Munoz RN Work Phone: [email or web address] 05-20-2012 13:17-0400 Systolic blood pressure 148 mm[Hg] Keyla Munoz RN Work Phone: [email or web address] 04-01-2012 13:05-0400 Body height 167.64 cm Keyla Munoz RN Work Phone: [email or web address] 04-01-2012 13:05-0400 Body mass index (BMI) [Ratio] 33.89 kg/m2 Keyla Munoz RN Work Phone: [employer] 04-01-2012 13:05-0400 Body surface area Derived from formula 2.04 m2 Keyla Munoz RN Work Phone: [email or web address]. 04-01-2012 13:05-0400 Body weight 95.26 kg Keyla Munoz RN Work Phone: [employer] 04-01-2012 13:05-0400 Diastolic blood pressure 70 mm[Hg] Keyla Munoz RN Work Phone: [employer] 04-01-2012 13:05-0400 Heart rate 81 /min Keyla Munoz RN Work Phone: [employer]. 04-01-2012 13:05-0400 Systolic blood pressure 121 mm[Hg] Keyla Munoz RN Work Phone: [email or web address]. 02-15-2012 14:01-0400 Body height 167.64 cm Keyla Munoz RN Work Phone: [email or web address]. 02-15-2012 14:01-0400 Body mass index (BMI) [Ratio] 33.89 kg/m2 Keyla Munoz RN Work Phone: [employer] 02-15-2012 14:01-0400 Body surface area Derived from formula 2.04 m2 Keyla Munoz RN Work Phone: [employer]. 02-15-2012 14:01-0400 Body weight 95.26 kg Keyla Munoz RN Work Phone: [email or web address]. 02-15-2012 14:01-0400 Diastolic blood pressure 70 mm[Hg] Keyla Munoz RN Work Phone: [employer]. 02-15-2012 14:01-0400 Heart rate 63 /min Keyla Munoz RN Work Phone: [employer]. 02-15-2012 14:01-0400 Systolic blood pressure 119 mm[Hg] Keyla Munoz RN Work Phone: [employer] 11-08-2011 14:06-0500 Body height 167.64 cm Keyla Munoz RN Work Phone: [employer]. 11-08-2011 14:06-0500 Body mass index (BMI) [Ratio] 34.54 kg/m2 Keyla Munoz RN Work Phone: [employer]. 11-08-2011 14:06-0500 Body surface area Derived from formula 2.06 m2 Keyla Munoz RN Work Phone: [employer]. 11-08-2011 14:06-0500 Body weight 97.07 kg Keyla Munoz RN Work Phone: [employer]. 11-08-2011 14:06-0500 Diastolic blood pressure 80 mm[Hg] Keyla Munoz RN Work Phone: [employer]. 11-08-2011 14:06-0500 Heart rate 72 /min Keyla Munoz RN Work Phone: [employer]. 11-08-2011 14:06-0500 Systolic blood pressure 135 mm[Hg] Keyla Munoz RN Work Phone: [employer]. 07-26-2011 12:30-0400 Body height 167.64 cm Keyla Munoz RN Work Phone: [email or web address] 07-26-2011 12:30-0400 Body mass index (BMI) [Ratio] 34.86 kg/m2 Keyla Munoz RN Work Phone: [employer]. 07-26-2011 12:30-0400 Body surface area Derived from formula 2.07 m2 Keyla Munoz RN Work Phone: [employer] 07-26-2011 12:30-0400 Body weight 97.98 kg Keyla Munoz RN Work Phone: [employer] 07-26-2011 12:30-0400 Diastolic blood pressure 61 mm[Hg] Keyla Munoz RN Work Phone: [employer]. 07-26-2011 12:30-0400 Heart rate 83 /min Keyla Munoz RN Work Phone: [employer]. 07-26-2011 12:30-0400 Systolic blood pressure 123 mm[Hg] Keyla Munoz RN Work Phone: [employer] 04-09-2011 14:11-0400 Body height 167.64 cm Keyla Munoz RN Work Phone: [employer] 04-09-2011 14:11-0400 Body mass index (BMI) [Ratio] 36.96 kg/m2 Keyla Munoz RN Work Phone: [employer] 04-09-2011 14:11-0400 Body surface area Derived from formula 2.12 m2 Keyla Munoz RN Work Phone: [employer] 04-09-2011 14:11-0400 Body weight 103.87 kg Keyla Munoz RN Work Phone: [employer] 04-09-2011 14:11-0400 Diastolic blood pressure 78 mm[Hg] Keyla Munoz RN Work Phone: [employer] 04-09-2011 14:11-0400 Heart rate 66 /min Keyla Munoz RN Work Phone: [employer] [facility] [email or web address] 04-09-2011 14:11-0400 Systolic blood pressure 136 mm[Hg] Keyla Munoz RN Work Phone: [email or web address] 01-08-2011 13:49-0500 Body height 167.64 cm Keyla Munoz RN Work Phone: [email or web address] 01-08-2011 13:49-0500 Body mass index (BMI) [Ratio] 37.12 kg/m2 Keyla Munoz RN Work Phone: [email or web address] 01-08-2011 13:49-0500 Body surface area Derived from formula 2.12 m2 Keyla Munoz RN Work Phone: [email or web address] 01-08-2011 13:49-0500 Body weight 104.33 kg Keyla Munoz RN Work Phone: [employer] 01-08-2011 13:49-0500 Diastolic blood pressure 70 mm[Hg] Keyla Munoz RN Work Phone: [employer] 01-08-2011 13:49-0500 Heart rate 58 /min Keyla Munoz RN Work Phone: [employer] 01-08-2011 13:49-0500 Systolic blood pressure 121 mm[Hg] Keyla Munoz RN Work Phone: [email or web address] 10-09-2010 15:13-0500 Body height 167.64 cm Keyla Munoz RN Work Phone: [email or web address] 10-09-2010 15:13-0500 Body mass index (BMI) [Ratio] 37.45 kg/m2 Keyla Munoz RN Work Phone: [employer] 10-09-2010 15:13-0500 Body surface area Derived from formula 2.13 m2 Keyla Munoz RN Work Phone: [employer] 10-09-2010 15:13-0500 Body weight 105.24 kg Keyla Munoz RN Work Phone: [employer] 10-09-2010 15:13-0500 Diastolic blood pressure 76 mm[Hg] Keyla Munoz RN Work Phone: [employer] 10-09-2010 15:13-0500 Heart rate 76 /min Keyla Munoz RN Work Phone: [employer] 10-09-2010 15:13-0500 Systolic blood pressure 135 mm[Hg] Keyla Munoz RN Work Phone: [employer] Encounters Encounter Date Encounter Type Care Provider Facility Start: 10-03-2023 End: 10-03-2023 Periodic preventive med est patient 65yrs& older Raudel Marquez MD Work Phone: [employer]. Start: 09-09-2023 End: 09-09-2023 Raudel Marquez MD Work Phone: [employer]. Start: 05-17-2023 End: 05-17-2023 Raudel Marquez MD Work Phone: [employer]. Start: 05-13-2023 End: 05-13-2023 Office outpatient visit 15 minutes Raudel Marquez MD Work Phone: [employer]. Start: 04-10-2023 End: 09-27-2023 ambulatory RAUDEL MARQUEZ [facility] Start: 04-02-2023 End: 04-02-2023 Raudel Marquez MD Work Phone: [employer]. Start: 04-01-2023 End: 04-01-2023 Office outpatient visit 25 minutes Raudel Marquez MD Work Phone: [employer]. Start: 03-27-2023 End: 03-27-2023 Raudel aMrquez MD Work Phone: [employer]. Start: 02-15-2023 End: 02-15-2023 ambulatory PERI PENG [facility] Start: 02-13-2023 End: 02-13-2023 Office outpatient visit 15 minutes Raudel Marquez MD Work Phone: [employer]. Start: 01-14-2023 End: 01-14-2023 Office outpatient visit 15 minutes Raudel Marquez MD Work Phone: [employer]. Start: 01-14-2023 End: 01-14-2023 Raudel Marquez MD Work Phone: [employer]. Start: 12-27-2022 End: 12-27-2022 Raudel Marquez MD Work Phone: [employer]. Start: 12-04-2022 End: 12-04-2022 Office outpatient visit 15 minutes Raudel Marquez MD Work Phone: [employer]. Start: 09-24-2022 End: 09-24-2022 Periodic preventive med est patient 65yrs& older Raudel Marquez MD Work Phone: [employer]. Start: 09-17-2022 End: 09-17-2022 Raudel Marquez MD Work Phone: [employer]. Start: 08-03-2022 End: 08-03-2022 Raudel Marquez MD Work Phone: [employer]. Start: 07-06-2022 End: 07-09-2022 Raudel Marquez MD Work Phone: [employer]. Start: 05-24-2022 End: 05-24-2022 Raudel Marquez MD Work Phone: [employer] Start: 03-20-2022 End: 03-20-2022 Office outpatient visit 25 minutes Raudel Marquez MD Work Phone: [employer]. Start: 09-06-2021 End: 09-06-2021 Raudel Marquez MD Work Phone: [employer]. Start: 08-03-2021 End: 08-03-2021 Raudel Marquez MD Work Phone: [employer] Start: 08-03-2021 End: 08-03-2021 Periodic preventive med est patient 65yrs& older Raudel Marquez MD Work Phone: [employer]. Start: 07-05-2021 End: 07-05-2021 Raudel Marquez MD Work Phone: [employer]. Start: 01-31-2021 End: 01-31-2021 Office outpatient visit 25 minutes Raudel Marquez MD Work Phone: [employer] Start: 09-20-2020 End: 09-20-2020 Raudel Marquez MD Work Phone: [employer]. Start: 07-25-2020 End: 07-25-2020 Periodic preventive med est patient 40-64yrs Raudel Marquez MD Work Phone: [employer]. Start: 07-18-2020 End: 07-18-2020 Raudel Marquez MD Work Phone: [employer]. Start: 06-14-2020 End: 06-14-2020 Office outpatient visit 15 minutes Raudel Marquez MD Work Phone: [employer]. Start: 05-24-2020 End: 05-24-2020 Periodic preventive med est patient 40-64yrs Raudel Marquez MD Work Phone: [employer]. Start: 01-20-2020 End: 01-20-2020 Office outpatient visit 25 minutes Raudel Marquez MD Work Phone: [employer]. Start: 10-02-2019 End: 10-02-2019 Raudel Marquez MD Work Phone: [employer] Start: 09-21-2019 End: 09-21-2019 Office outpatient visit 15 minutes Raudel Marquez MD Work Phone: [employer] Start: 07-20-2019 End: 07-20-2019 Periodic preventive med est patient 65yrs& older Raudel Marquez MD Work Phone: [employer]. Start: 06-23-2019 End: 06-23-2019 Raudel Marquez MD Work Phone: [employer]. Start: 01-23-2019 End: 01-23-2019 Raudel Marquez MD Work Phone: [employer] Start: 01-06-2019 End: 01-06-2019 Office outpatient visit 25 minutes Raudel Marquez MD Work Phone: [employer] Start: 09-30-2018 End: 09-30-2018 Raudel Marquez MD Work Phone: [employer] Start: 07-02-2018 End: 07-02-2018 Office outpatient visit 25 minutes Raudel Marquez MD Work Phone: [employer] Start: 05-23-2018 End: 05-23-2018 Raudel Marquez MD Work Phone: [employer] Start: 04-02-2018 End: 04-03-2018 Ambulatory Franci ALMAZAN Facility:[facility] Start: 03-12-2018 End: 03-12-2018 Office outpatient visit 15 minutes Raudel Marquez MD Work Phone: [employer]. Start: 03-11-2018 End: 03-11-2018 Raudel Marquez MD Work Phone: [employer]. Start: 03-04-2018 End: 03-05-2018 Evaluation and management of inpatient Franci ALMAZAN Facility:[facility] Start: 02-28-2018 End: 03-01-2018 Ambulatory Franci ALMAZAN Facility:[facility] Start: 02-19-2018 End: 02-20-2018 Ambulatory Franci ALMAZAN Facility:[facility] Start: 02-07-2018 End: 02-07-2018 Ambulatory Franci ALMAZAN Facility:[facility] Start: 12-06-2017 End: 12-06-2017 Raudel Marquez MD Work Phone: [employer]. Start: 12-05-2017 End: 12-05-2017 Raudel Marquez MD Work Phone: [employer]. Start: 11-13-2017 End: 11-13-2017 Raudel Marquez MD Work Phone: [employer]. Start: 11-11-2017 End: 11-11-2017 Raudel Marquez MD Work Phone: [employer]. Start: 11-11-2017 End: 11-11-2017 Office outpatient visit 15 minutes Raudel Marquez MD Work Phone: [employer]. Start: 08-03-2017 End: 08-03-2017 Raudel Marquez MD Work Phone: [employer]. Start: 08-02-2017 End: 08-03-2017 Raudel Marquez MD Work Phone: [employer]. Start: 08-02-2017 End: 08-02-2017 Raudel Marquez MD Work Phone: [employer]. Start: 12-27-2016 End: 12-27-2016 Periodic preventive med est patient 65yrs& older Raudel Marquez MD Work Phone: [employer]. Start: 12-20-2016 End: 12-25-2016 Raudel Marquez MD Work Phone: [employer]. Start: 09-27-2016 End: 09-27-2016 Raudel Marquez MD Work Phone: [employer]. Start: 09-10-2016 End: 09-11-2016 Raudel Marquez MD Work Phone: [employer]. Start: 2016 End: 2016 Raudel Marquez MD Work Phone: [employer]. Start: 06-12-2016 End: 06-12-2016 Office outpatient visit 25 minutes Raudel Marquez MD Work Phone: [employer]. Start: 05-29-2016 End: 05-29-2016 Raudel Marquez MD Work Phone: [employer]. Start: 05-08-2016 End: 05-10-2016 Office outpatient visit 25 minutes Raudel Marquez MD Work Phone: [employer]. Start: 04-27-2016 End: 04-27-2016 Raudel Marquez MD Work Phone: [employer]. Start: 04-27-2016 End: 04-27-2016 Raudel Marquez MD Work Phone: [employer]. Start: 04-07-2016 End: 04-08-2016 Initial nursing facility care/day 25 minutes Raudel Marquez MD Work Phone: [employer]. Start: 04-06-2016 End: 04-06-2016 Raudel Marquez MD Work Phone: [employer]. Start: 03-13-2016 End: 03-13-2016 Office outpatient visit 25 minutes Ruadel Marquez MD Work Phone: [employer]. Start: 12-09-2015 End: 12-09-2015 Office outpatient visit 25 minutes Raudel Marquez MD Work Phone: [employer]. Start: 10-12-2015 End: 10-13-2015 Raudel Marquez MD Work Phone: [employer]. Start: 09-02-2015 End: 09-02-2015 Periodic preventive med est patient 65yrs& older Raudel Marquez MD Work Phone: [employer]. Start: 08-26-2015 End: 08-26-2015 Raudel Marquez MD Work Phone: [employer]. Start: 07-26-2015 End: 07-26-2015 Raudel Marquez MD Work Phone: [employer]. Start: 06-16-2015 End: 06-17-2015 Office outpatient visit 25 minutes Raudel Marquez MD Work Phone: [employer]. Start: 09-27-2014 End: 09-27-2014 Office outpatient visit 25 minutes Raudel Marquez MD Work Phone: [employer]. Start: 08-09-2014 End: 08-09-2014 Raudel Marquez MD Work Phone: [employer]. Start: 06-24-2014 End: 06-24-2014 Periodic preventive med est patient 65yrs& older Raudel Marquez MD Work Phone: [employer]. Start: 05-26-2014 End: 05-26-2014 Raudel Marquez MD Work Phone: [employer]. Start: 05-21-2014 End: 05-21-2014 Raudel Marquez MD Work Phone: [employer]. Start: 04-27-2014 End: 04-27-2014 Raudel Marquez MD Work Phone: [employer]. Start: 04-27-2014 End: 04-27-2014 Raudel Marquez MD Work Phone: [employer]. Start: 04-14-2014 End: 04-14-2014 Raudel Marquez MD Work Phone: [employer]. Start: 01-28-2014 End: 01-29-2014 Raudel Marquez MD Work Phone: [employer]. Start: 10-15-2013 End: 10-15-2013 Raudel Marquez MD Work Phone: [employer]. Start: 10-12-2013 End: 10-12-2013 Raudel Marquez MD Work Phone: [employer]. Start: 10-12-2013 End: 10-12-2013 Raudel Marquez MD Work Phone: [employer]. Start: 10-08-2013 End: 10-08-2013 Raudel Marquez MD Work Phone: [employer]. Start: 09-09-2013 End: 09-09-2013 Raudel Marquez MD Work Phone: [employer]. Start: 06-11-2013 End: 06-11-2013 Raudel Marquez MD Work Phone: [employer]. Start: 03-03-2013 End: 03-03-2013 Raudel Marquez MD Work Phone: [employer]. Start: 12-05-2012 End: 12-05-2012 Raudel Marquez MD Work Phone: [employer]. Start: 11-06-2012 End: 11-06-2012 Raudel Marquez MD Work Phone: [employer]. Start: 11-03-2012 End: 11-03-2012 Raudel Marquez MD Work Phone: [employer]. Start: 10-17-2012 End: 10-17-2012 Raudel Marquez MD Work Phone: [employer]. Start: 09-25-2012 End: 09-25-2012 Raudel Marquez MD Work Phone: [employer]. Start: 09-15-2012 End: 09-15-2012 Raudel Marquez MD Work Phone: [employer]. Start: 08-19-2012 End: 08-20-2012 Raudel Marquez MD Work Phone: [employer]. Start: 05-20-2012 End: 05-20-2012 Raudel Marquez MD Work Phone: [employer]. Start: 05-19-2012 End: 05-19-2012 Raudel Marquez MD Work Phone: [employer]. Start: 04-01-2012 End: 04-01-2012 Raudel Marquez MD Work Phone: [employer]. Start: 02-15-2012 End: 02-15-2012 Raudel Marquez MD Work Phone: [employer]. Start: 11-08-2011 End: 11-08-2011 Raudel Marquez MD Work Phone: [employer]. Start: 10-29-2011 End: 10-29-2011 Raudel Marquez MD Work Phone: [employer]. Start: 07-26-2011 End: 07-26-2011 Raudel Marquez MD Work Phone: [employer]. Start: 04-09-2011 End: 04-09-2011 Raudel Marquez MD Work Phone: [employer]. Start: 01-08-2011 End: 01-08-2011 Raudel Marquez MD Work Phone: [employer]. Start: 12-25-2010 End: 12-25-2010 Raudel Marquez MD Work Phone: [employer]. Start: 11-30-2010 End: 11-30-2010 Raudel Marquez MD Work Phone: [employer]. Start: 10-09-2010 End: 10-09-2010 Raudel Marquez MD Work Phone: [employer]. Start: 10-06-2010 End: 10-06-2010 Raudel Marquez MD Work Phone: [employer]. Start: 10-02-2010 End: 10-02-2010 Raudel Marquez MD Work Phone: [employer]. Start: 07-07-2010 End: 07-07-2010 Raudel Marquez MD Work Phone: [employer]. Patient encounter status Stella Quevedo LP [facility] [place] [facility] [employer] Patient encounter status Susana Byrne TUNNEL [employer]M [employer]ACING SUPERVISOR [employer] Patient encounter status Raudel Marquez MD Work Phone: [facility] [employer]. Patient encounter status Eladio Barnhart TUNNEL FORM PLACING SUPERVISOR [facility], [facility]. Patient encounter status Shelly Jesus TUNNEL FORM PLACING SUPERVISOR [facility].; [facility], [facility]. Patient encounter status Raudel Marquez MD Work Phone: [facility].; [employer] [place] [employer] [facility], [facility]. Preoperative state Stella Shannonugg TUNNEL FORM PLACING SUPERVISOR [facility], [facility].; [employer] [facility], [facility]. Routine general medi suni examination at a health care facility Stella Shannonugg [facility], [facility].; [employer] [facility], [facility]. Routine general medi suni examination at a health care facility Keyla Munoz RN Work Phone: [facility], [facility].; [facility], [facility]. Routine general medi suni examination at a health care facility Courtney Mendieta MD Work Phone: [facility], [facility].; [employer] [facility], [facility]. Routine general medi suni examination at a health care facility Susana [facility]ose [facility] [employer] [facility], [facility]. Routine gynecologica l examination Susana K Mutersbaugh [facility] [employer] [facility].; [employer] [facility], [facility]. Routine gynecologica l examination Stella Ortegaugg [facility].; [employer] [facility]. Procedures Date Procedure Procedure Detail Performing Clinician Start: 10-03-2023 End: 10-03-2023 Adv care pln/ no alt dcsn mkr docd or refusal Raudel Marquez MD Work Phone: Start: 10-03-2023 End: 10-03-2023 Depression screening Raudel Marquez MD Work Phone: Start: 10-03-2023 End: 10-03-2023 Falls risk assessment documented Raudel Marquez MD Work Phone: Start: 10-03-2023 End: 10-03-2023 Flu immunize order/admin Raudel Bland Work Phone: Start: 10-03-2023 End: 10-03-2023 Pos clin depres scrn f/u doc Raudel villasenor MD Work Phone: Start: 10-03-2023 End: 10-03-2023 PPPS, subseq visit Raudel Marquez MD Work Phone: Start: 10-03-2023 End: 10-03-2023 Pt falls assess docd 2/> falls/fall w/injury/yr Raudel Marquez MD Work Phone: Start: 09-26-2023 End: 09-26-2023 Eladio Obey T[employer]NEL [employer]M [employer]ACING SUPERVISOR Start: 09-26-2023 End: 09-26-2023 Eladio Obey T[employer]NEL FORM PLACING SUPERVISOR Start: 01-09-2023 End: 01-09-2023 Examination of retina Eladio Obey [employer]NEL [employer]M [employer]ACING SUPERVISOR Start: 09-24-2022 End: 09-24-2022 Adv care pln/ no alt dcsn mkr docd or refusal Raudel Marquez MD Work Phone: Start: 09-24-2022 End: 09-24-2022 Depression screening Raudel Marquez MD Work Phone: Start: 09-24-2022 End: 09-24-2022 Falls risk assessment documented Raudel Marquez MD Work Phone: Start: 09-24-2022 End: 09-24-2022 Flu immunize order/admin Raudel Bland Work Phone: Start: 09-24-2022 End: 09-24-2022 PPPS, subseq visit Raudel Marquez MD Work Phone: Start: 09-24-2022 End: 09-24-2022 Pt falls assess docd 2/> falls/fall w/injury/yr Raudel Marquez MD Work Phone: Start: 07-06-2022 End: 07-09-2022 Screening mammography bi 2-view breast inc cad Raudel Marquez MD Work Phone: Start: 08-03-2021 End: 08-03-2021 Depression screening Raudel Marquez MD Work Phone: Start: 08-03-2021 End: 08-16-2021 Dxa bone density study 1/> sites axial skel Raudel Marquez MD Work Phone: Start: 08-03-2021 End: 08-03-2021 Falls risk assessment documented Raudel Marquez MD Work Phone: Start: 08-03-2021 End: 08-03-2021 PPPS, subseq visit Raudel Marquez MD Work Phone: Start: 08-03-2021 End: 08-03-2021 Pt falls assess docd w/o fall/injury past year Raudel Marquez MD Work Phone: Start: 08-03-2021 End: 08-03-2021 Scr dep neg, no plan reqd Raudel Marquez MD Work Phone: Start: 07-25-2020 End: 07-25-2020 Depression screening Raudel Marquez MD Work Phone: Start: 07-25-2020 End: 07-25-2020 Falls risk assessment documented Raudel Marquez MD Work Phone: Start: 07-25-2020 End: 07-25-2020 Most recent hemoglobin a1c level < 7.0% Raudel Marquez MD Work Phone: Start: 07-25-2020 End: 07-25-2020 Negative microalbuminuria test result doc&rev Raudel Marquez MD Work Phone: Start: 07-25-2020 End: 07-25-2020 PPPS, subseq visit Raudel Marquez MD Work Phone: Start: 07-25-2020 End: 07-25-2020 Pt falls assess docd 2/> falls/fall w/injury/yr Raudel Marquez MD Work Phone: Start: 07-25-2020 End: 07-25-2020 Scr dep neg, no plan reqd Raudel Marquez MD Work Phone: Start: 07-25-2020 End: 11-16-2020 Screening mammography bi 2-view breast inc cad Raudel Marquez MD Work Phone: Start: 07-25-2020 End: 07-25-2020 Eladio Barnhart LPN Start: 09-21-2019 End: 09-21-2019 Flu immunize order/admin Raudel Bland Work Phone: Start: 07-20-2019 End: 07-20-2019 Depression screening Raudel Marquez MD Work Phone: Start: 07-20-2019 End: 07-20-2019 Pos clin depres scrn f/u doc Raudel villasenor MD Work Phone: Start: 03-13-2019 End: 03-13-2019 Screening mammography Eladio Barnhart T[employer]NEL [employer]M [employer]ACING SUPERVISOR Start: 03-12-2018 End: 03-12-2018 Body mass index documented Raudel Marquez MD Work Phone: Start: 12-05-2017 End: 02-11-2018 Screening mammography bi 2-view breast inc cad Raudel Marquez MD Work Phone: Start: 12-27-2016 End: 12-27-2016 Falls risk assessment documented Raudel Marquez MD Work Phone: Start: 12-27-2016 End: 12-27-2016 PPPS, subseq visit Raudel Marquez MD Work Phone: Start: 12-27-2016 End: 12-27-2016 Pt falls assess docd 2/> falls/fall w/injury/yr Raudel Marquez MD Work Phone: Start: 12-27-2016 End: 12-27-2016 Scr dep neg, no plan reqd Raudel Marquez MD Work Phone: Start: 12-27-2016 End: 12-27-2016 Depression screen annual Raudel Bland Work Phone: Start: 11-07-2016 End: 11-07-2016 Ophthalmic examination and evaluation Eladio Barnhart TUNNEL [employer]M PLACING SUPERVISOR Start: 09-27-2016 End: 10-24-2016 Mammogram, screening Raudel Marquez MD Work Phone: Start: 04-03-2016 End: 04-03-2016 Laminectomy Eladio Barnhart LPN Start: 09-02-2015 End: 09-02-2015 PPPS, subseq visit Courtney Mendieta MD Work Phone: Start: 09-01-2015 End: 09-01-2015 Mammogram, screening Courtney Mendieta MD Work Phone: Start: 06-16-2015 End: 06-21-2015 Non-invasive physiologic study extremity 3 levls Courtney Mendieta MD Work Phone: Start: 06-24-2014 End: 07-06-2014 Doppler echocard pulse wave w/spectral display Courtney Mendieta MD Work Phone: Start: 06-24-2014 End: 01-13-2018 Motor &/sens nrv cndj preconf eltrd array limb Courtney Mendieta MD Work Phone: Start: 06-24-2014 End: 06-24-2014 PPPS, subseq visit Courtney Mendieta MD Work Phone: Start: 05-21-2014 End: 07-06-2014 Mammogram, screening Courtney Mendieta MD Work Phone: Start: 12-02-2013 End: 12-02-2013 Screening for malignant neoplasm of large intestine Eladio Barnhart LPN Start: 10-15-2013 End: 01-13-2018 Ndl emg 2 xtr w/wo related paraspinal areas Courtney Mendieta MD Work Phone: Start: 06-11-2013 End: 06-11-2013 PPPS, subseq visit Keyla Munoz RN Work Phone: Start: 03-03-2013 End: 06-24-2013 Mammogram, screening Courtney Mendieta MD Work Phone: Start: 11-07-2012 End: 12-03-2012 Polysom 6/>yrs sleep w/cpap 4/> addl bret attnd Courtney Mendieta MD Work Phone: Start: 09-15-2012 End: 09-25-2012 Doppler echocard pulse wave w/spectral display Courtney Mendieta MD Work Phone: Start: 05-20-2012 End: 05-20-2012 PPPS, initial visit Courtney Mendieta MD Work Phone: Start: 07-26-2011 End: 02-04-2012 Mammogram, screening Courtney Mendieta MD Work Phone: Start: 04-09-2011 End: 04-09-2011 Microscopic examination of cervical Papanicolaou smear Eladio Barnhart TUNNEL [employer]M PLACING SUPERVISOR Start: 01-30-2006 End: 01-30-2006 Bone density scan Eladio Barnhart TUNNEL FORM PLACING SUPERVISOR Ligation of fallopian tube A ayden Barnhart TUNNEL FORM PLACING SUPERVISOR Replacement of total knee joint Eladio Barnhart TUNNEL FORM PLACING SUPERVISOR Eladio Barnhart LP N Plan of Treatment Date Care Activity Detail Author Start: 03-31-2024 [facility]. Start: 02-13-2023 [facility]adex spine lumbosacral 2/3 [facility] [facility] Immunizations Immunization Date Immunization Notes Care Provider Fa cility 10-03-2023 influenza virus vacc ine, unspecified formulation Raudel Marquez MD Work Phone[facility] [place] [employer] 10-03-2023 influenza, injectabl e, quadrivalent, preservative free Raudel Marquez MD Work Phone: [facility] [place] [employer]. 09-24-2022 influenza, injectabl e, quadrivalent, contains preservative Raudel Marquez MD Work Phone: [facility] [employer]; [place] [employer] 09-24-2022 influenza virus vacc ine, unspecified formulation Raudel Marquez MD Work Phone: [place] [email or web address] 07-25-2020 Shingrix (PF) Raudel Marquez MD Work Phone: [facility] [email or web address] 09-21-2019 influenza virus vacc ine, unspecified formulation Raudel Marquez MD Work Phone: [place] [email or web address] 09-21-2019 influenza, injectabl e, quadrivalent, contains preservative Raudel Marquez MD Work Phone: [facility] [email or web address] 09-30-2018 influenza, injectabl e, quadrivalent, contains preservative Raudel Marquez MD Work Phone: [facility].; [facility] 12-27-2016 influenza, injectabl e, quadrivalent, contains preservative Raudel Marquez MD Work Phone: [facility]; [facility] 12-27-2016 unknown vaccine or i mmune globulin Raudel Marquez MD Work Phone: [facility].; [facility] 09-02-2015 pneumococcal conjuga te vaccine, 13 valent Raudel Marquez MD Work Phone: [facility].; [facility] 09-02-2015 Raudel Marquez MD Work Phone: [facility].; [facility] 09-02-2015 influenza, seasonal, injectable Raudel Marquez MD Work Phone: [facility].; [facility] 09-27-2014 influenza, seasonal, injectable Raudel Marquez MD Work Phone: [facility].; [facility] 09-27-2014 Raudel Marquez MD Work Phone: [facility].; [facility] 07-12-2014 tetanus toxoid, redu toya diphtheria toxoid, and acellular pertussis vaccine, adsorbed Raudel Marquez MD Work Phone: [facility].; [place] [employer] [facility] 09-09-2013 influenza, seasonal, injectable Raudel Marquez MD Work Phone: [facility].; [facility] [place] [employer] [facility]. 09-09-2013 Raudel Marquez MD Work Phone: [facility].; [facility] 08-19-2012 influenza, seasonal, injectable Raudel Marquez MD Work Phone: [facility].; [place] [employer] 05-20-2012 pneumococcal polysaccharide vaccine, 23 valent Raudel Marquez MD Work Phone: [facility]. 11-08-2011 influenza, seasonal, injectable Raudel Marquez MD Work Phone: [facility] [email or web address] 10-09-2010 influenza, seasonal, injectable Raudel Marquez MD Work Phone: [email or web address] 01-13-2010 novel influenza-H1N1 -09, all formulations Raudel Marquez MD Work Phone: [email or web address] 11-02-2009 influenza, seasonal, injectable Raudel Marquez MD Work Phone: [email or web address] 07-30-2008 zoster vaccine, live Raudel kraus MD Work Phone: [email or web address] 12-12-2006 tetanus toxoid, redu toya diphtheria toxoid, and acellular pertussis vaccine, adsorbed Raudel Marquez MD Work Phone: [email or web address] 10-10-2006 pneumococcal polysaccharide vaccine, 23 valent Raudel Marquez MD Work Phone: [email or web address] Payers Date Payer Category Payer Medicare [id number] 1945 Unknown [id number] 1945 Unknown [id number] Medicare [id number] Social History Date Type Detail Facility Occasional alcoh ol use. 7 or fewer drinks per week. [email or web address]. Retired. [employer]. Former smoker. [employer]. Summary Purpose Family History Arthritis Status:Active Comments:Mother. Father. Breast Cancer Status:Active Comments:Sister. Cerebrovascular Accident Status:Active Comment s:Sister. Father. Colon Cancer Status:Active Comments:Mother. age 63 Coronary Artery Disease Status:Active Comments :Father. age 93 Hypertension Status:Active Comments:Sister. Father. macular degeneration Status:Active Comments:Si ster. macular degeneration Status:Active Comments:Fa ther. Sister. Transient ischemic attack Status:Active Commen ts:Father. Arthritis Status:Active Comments:Mother. Father. Breast Cancer Status:Active Comments:Sister. Cerebrovascular Accident Status:Active Comment s:Sister. Father. Colon Cancer Status:Active Comments:Mother. age 63 Coronary Artery Disease Status:Active Comments :Father. age 93 Hypertension Status:Active Comments:Sister. Father. macular degeneration Status:Active Comments:Si ster. macular degeneration Status:Active Comments:Fa ther. Sister. Transient ischemic attack Status:Active Commen ts:Father. Arthritis Status:Active Comments:Mother. Father. Breast Cancer Status:Active Comments:Sister. Cerebrovascular Accident Status:Active Comment s:Sister. Father. Colon Cancer Status:Active Comments:Mother. age 63 Coronary Artery Disease Status:Active Comments :Father. age 93 Hypertension Status:Active Comments:Sister. Father. macular degeneration Status:Active Comments:Si ster. macular degeneration Status:Active Comments:Fa ther. Sister. Transient ischemic attack Status:Active Commen ts:Father. Arthritis Status:Active Comments:Mother. Father. Breast Cancer Status:Active Comments:Sister. Cerebrovascular Accident Status:Active Comment s:Sister. Father. Colon Cancer Status:Active Comments:Mother. age 63 Coronary Artery Disease Status:Active Comments :Father. age 93 Hypertension Status:Active Comments:Sister. Father. macular degeneration Status:Active Comments:Si ster. macular degeneration Status:Active Comments:Fa ther. Sister. Transient ischemic attack Status:Active Commen ts:Father. Advance Directives No Advanced Directives Records FoundNo Advanced Directives Records FoundNo Advanced Directives Records Found Additional Source Comments INFORMATION SOURCE (unrecogn ized section and content) DATE CREATED AUTHOR AUTHOR'S ORGANIZ ATION 09/29/2023 [facility] DATE CREATED AUTHOR AUTHOR'S ORGANIZ ATION 09/29/2023 [facility] FOR RECORDS PERTAINING TO PATIENTS WHO ARE OR HAVE BEEN ENROLLED IN A CHEMICAL DEPENDENCY/SUBSTANCEABUSE PROGRAM, SOME INFORMATION MAY BE OMITTED. This clinical summary was aggregated from multiple sources. Caution should be exercised in using it in the provision of clinical care. This summary normalizes information from multiple sources, and as a consequence, information in this document may materially change the coding, format and clinical context of patient data. In addition, data may be omitted in some cases. CLINICAL DECISIONS SHOULD BE BASED ON THE PRIMARY CLINICAL RECORDS. [facility] [employer] [facility]. provides no warranty or guarantee of the accuracy or completeness of information in this document.
[2023-12-18] MEDS: Lactated Ringers 1,000 ML 15 ML IV (12:31)
--- NOTE | 2023-12-18 14:35 | PCM.HP.STD ---
HPI - General General Date of Service: 12/18/23 Chief Complaint: Stage II InterStim HPI Narrative JONATHAN QUINTANILLA, is a 78 F who presents for placement of stage II InterStim she underwent stage I and did really well so she wants to proceed with stage II [facility] Medical History (Updated 12/17/23 @ 15:06 by Chloe Harris) Anxiety Arthritis Cardiology follow-up encounter CPAP (continuous positive airway pressure) dependence Diabetes mellitus Easy bruising Former smoker History of echocardiogram History of rheumatic fever Thyroid disease Wears glasses Home Medications ascorbic acid (vitamin C) 500 mg tablet (Vitamin C) 1,000 mg PO DAILY 10/30/17 [History Last Taken 12/17/23] biotin 2,500 mcg capsule 5,000 mcg PO QHS 10/30/17 [History Last Taken 12/17/23] chromium picolinate 400 mcg tablet 1,000 mcg PO BID 10/30/17 [History Last Taken 12/17/23] cinnamon bark 500 mg capsule 1,000 mg PO BID 10/30/17 [History Last Taken 12/17/23] coenzyme Q10 50 mg chewable tablet 200 mg PO DAILY 10/30/17 [History Last Taken 12/17/23] cyanocobalamin (vitamin B-12) 500 mcg tablet (Vitamin B-12) 500 mcg PO BID 10/30/17 [History Last Taken 12/17/23] gabapentin 300 mg capsule (Neurontin) 600 mg PO Q12H 10/30/17 [History Last Taken 12/18/23] glucosamine 750 [id number] no1 644 mg-C 30 mg-luis 1 mg tablet (Osteo Bi-Flex Triple Strength) 2 ea PO DAILY 10/30/17 [History Last Taken 12/17/23] iodine (kelp) 0.15 mg tablet (Kelp) 600 mcg PO BID 10/30/17 [History Last Taken 12/17/23] krill oil 500 mg capsule 1,000 mg PO DAILY 10/30/17 [History Last Taken 12/17/23] levothyroxine 175 mcg tablet 150 mcg PO DAILY 10/30/17 [History Last Taken 12/18/23] lovastatin 20 mg tablet 20 mg PO DAILY 10/30/17 [History Last Taken 12/17/23] lutein 20 mg capsule 20 mg PO DAILY 10/30/17 [History Last Taken 12/17/23] metformin 500 mg 24 hr tablet,extended release (gastric retention) 500 mg PO BID 10/30/17 [History Last Taken 12/17/23] paroxetine HCl 30 mg tablet (Paxil) 30 mg PO DAILY 10/30/17 [History Last Taken 12/17/23] vits,calcium no.78-iron fumarate-folic acid 29 mg-1 mg tablet (Prenatabs FA) 1 tab PO DAILY 10/30/17 [History Last Taken 12/17/23] pyridoxine (vitamin B6) 100 mg tablet 100 mg PO BID 10/30/17 [History Last Taken 12/17/23] calcium carbonate 500 mg-vitamin D3 15 mcg (600 unit) tablet 1,200 mg PO DAILY 12/20/17 [History Last Taken 12/17/23] acetaminophen 650 mg tablet,extended release (8 Hour Pain Reliever) 1,300 mg PO DAILY 11/20/23 [History Last Taken 12/18/23] furosemide 20 mg tablet 20 mg PO QODAY 11/20/23 [History Last Taken 12/17/23] Allergy/AdvReac Type Severity Reaction Status Date / Time No Known Allergies Allergy Verified 12/18/23 12:29 Surgical History (Updated 12/17/23 @ 15:05 by Chloe Harris) H/O gastric bypass History of transurethral resection of bladder tumor (TURBT) Hx of cystoscopy Hx of hysterectomy S/P TAVR (transcatheter aortic valve replacement) Social History Smoking Status: Former smoker Vital Signs Vital Signs Vital Signs: 12/18/23 12:31 12/18/23 12:31 Temperature 96.8 F L Temperature Source Temporal Pulse Rate 53 L Respiratory Rate 17 Respiratory Pattern Normal Blood Pressure 142/53 H Blood Pressure Mean 82 Blood Pressure Source Monitor Blood Pressure Position Semi-Fowlers Blood Pressure Location Left Arm Pulse Ox 98 Oxygen Delivery Method Room Air Weight Weight: 89 kg Body Mass Index (BMI) 38.3
--- NOTE | 2023-12-18 14:38 | DCINST_ITS ---
Discharge Instructions Diet Discharge Diet: No restrictions Activity Discharge Activity: Return to Normal Activity and May Not Drive (while taking narcotic pain medications.) Dressing / Incision Call your doctor if you observe: Fever of 101 or Higher Follow Up Care Please Follow Up With: Bipin Murray MD When: Call [phone] for an appointment Test Results: Test results from this visit will be discussed in further detail at your follow- up appointment, if applicable. Discharge Plan Admission Primary Reason for Your Visit: Stage II InterStim Attending Provider: Bipin Murray Primary Care Provider: Raudel Marquez Discharge Orders/Prescriptions Prescriptions: New cephalexin 500 mg capsule 500 mg PO TID Qty: 10 0RF No Action levothyroxine 175 MCG tablet 150 mcg PO DAILY Kelp 150 MCG tablet 600 mcg PO BID cyanocobalamin (vitamin B-12) [Vitamin B-12] 500 MCG tablet 500 mcg PO BID ascorbic acid (vitamin C) [Vitamin C] 500 MG tablet 1,000 mg PO DAILY paroxetine HCl [Paxil] 30 MG tablet 30 mg PO DAILY gabapentin [Neurontin] 300 MG capsule 600 mg PO Q12H pyridoxine (vitamin B6) 100 MG tablet 100 mg PO BID lovastatin 20 MG tablet 20 mg PO DAILY chromium picolinate 400 MCG tablet 1,000 mcg PO BID cinnamon bark 500 MG capsule 1,000 mg PO BID lutein 20 MG capsule 20 mg PO DAILY metformin 500 MG tablet,ER michelle.retention 24 hr 500 mg PO BID biotin 2,500 MCG capsule 5,000 mcg PO QHS Prenatabs FA 1 TABLET tablet 1 tab PO DAILY krill oil 500 MG capsule 1,000 mg PO DAILY coenzyme Q10 50 MG tablet,chewable 200 mg PO DAILY Osteo Bi-Flex Triple Strength 1 EACH tablet 2 ea PO DAILY calcium carbonate-vitamin D3 1 EACH tablet 1,200 mg PO DAILY acetaminophen [8 Hour Pain Reliever] 650 mg tablet extended release 1,300 mg PO DAILY furosemide 20 MG tablet 20 mg PO QODAY Referrals / Follow Up: Bipin Murray MD [Med Staff - Active Staff] - Raudel Marquez MD [Primary Care Provider] - Disposition Disposition (needs filled in before D/C Order can be placed): Home, Self Care
[2023-12-18] MEDS: Cefazolin 2 GM in 0.9% Normal Saline (100mL Bag) 100 ML IV (15:12)
[2023-12-18] MEDS: Lidocaine 1% /Epi 1:100 (20ml) 20 ML Vial (15:36)
--- NOTE | 2023-12-18 15:42 | OP.PCM_ITS ---
Report of Operation Date of Procedure: 12/18/23 Pre-Operative Diagnosis: Frequency urgency incontinence Post-Operative Diagnosis: Frequency urge incontinence Surgery/Procedure Performed:: Stage II InterStim implant Description of Surgical Findings:: The patient presents to the operating room for placement of stage II interstim therapuy therapy. Patient had stage I in the therapy stage placed about 2 weeks ago and we monitor her response to symptoms she has had a greater than 50% improvement both subjectively and objectively through review of her voiding diary. She also wishes to proceed with stage II InterStim therapy as it has improved her symptoms significantly. The patient understands these is no guarantees that in the future the InterStim therapy will keep working to the patient's satisfaction and its always possible and it may need to have a surgical revision, change in implant, possible revision or removal of implant. We also talk about the risks of pain with stimulation, bleeding and infection or any injury to nerves or bony structures and the tailbone area. After reviewing all this with the patient in the preoperative area she signed the consent form and we proceeded with stage II interstim therapy implant. Patient was brought back to the operating room and placed supine on the table and then transferred to facedown the table and underwent sedation with comfort hugging a pillow. Patient's lower back was prepped and draped in usual sterile fashion, I then palpated the bony landmarks identify the tailbone the sacrum and the pocket area was identified where the therapeutic recreation leader would be implanted and also the lead. The temporary lead was then cut off from the Bluetooth device. We made an incision over the pocket and remove the temporary extension from the permanent lead and the suture that was holding the temporary extension was removed. The end of the permanent lead was inspected and there was no signs of any damage and was cleaned thoroughly. We then brought over the generator from the kit. After this was confirmed then pocket opened up to allow for the placement of the generator and the patient's lateral side. Then the generator was opened and I made sure I cleaned the lead completely I attached the lead to the generator use the screwdriver provided in the kit to then secure the bolt secure the lead to the generator prior to doing this again checked the lead 0, 1, 2, 3 and there was still good stimulation at all sites. I then placed the lead into the generator and the generator was put into the pocket that was created. I made sure that the generator was placed with InterStim labeling side up and was oriented appropriately. I then checked for impedance using the [employer] rep had the device checked in the impedance was normal with no abnormal impedance and all leads in all 4-lead sites were programmed and responded normally. The generator was then programmed to ensure good proper stimulation of the InterStim device this was done in the operating room, after complex programming was completed we finished with fluoroscopy I then closed the insertion site with subcuticular stitches and Steri-Strips and bandages and then closed the pocket with subcuticular stitches and Steri-Strips and bandages. The patient's anesthetic was reversed patient was taken back to the recovery room in stable condition and further training and education will be given to the patient regarding how to use the new InterStim therapy. Surgeon: Bipin Murray Type of Anesthesia: General Drains: none Estimated Blood Loss (mL): 5 Admit VTE Documentation VTE Present on Admission: No VTE Mechan Device Prophylaxis: SCD's VTE Pharm Prophylaxis ordered?: No
== END 2023-12-18 16:58 | disposition home or self-care (01) ==
LOC: SDC 11:55 → AC 12:00
PROVIDERS: PCP Family Medicine; Referring Provider Urology; Visit Provider Urology
PROC: (CPT 64590; principal; 2023-12-18 13:50)
DX: Z45.42 Encounter for adjustment and management of neurostimulator (principal); E11.9 Type 2 diabetes mellitus without complications; N39.41 Urge incontinence; E07.9 Disorder of thyroid, unspecified; Z87.891 Personal history of nicotine dependence; F41.9 Anxiety disorder, unspecified; Z98.84 Bariatric surgery status; Z86.03 Personal history of neoplasm of uncertain behavior; Z90.710 Acquired absence of both cervix and uterus; Z95.2 Presence of prosthetic heart valve
CPT/HCPCS: 64590; 00300; J7120; J2405